=== PATIENT | male | born 1975 | race Caucasian/White ===

== ENCOUNTER 2017-04-14 13:14 | Inpatient (IN) | payer MEDICAID ==
[2017-04-14] MEDS ORDERED: ONDANSETRON HCL INJ/PF 4 MG/2 ML SDV IV ONE (14:52)
[2017-04-14] MEDS ORDERED: NORMAL SALINE 1000 ML 1,000 ML IV PRN (14:52)
--- NOTE | 2017-04-14 15:25 | RADIOLOGY REPORT (SQ) ---
EXAM DESCRIPTION: CHEST SINGLE VIEW COMPLETED DATE/TIME: 04/14/2017 3:15 pm REASON FOR STUDY: pain sp fall COMPARISON: 07/17/2016 EXAM PARAMETERS: NUMBER OF VIEWS: One view. TECHNIQUE: Single frontal radiographic view of the chest acquired. RADIATION DOSE: NA LIMITATIONS: None. FINDINGS: LUNGS AND PLEURA: No opacities, masses or pneumothorax. No pleural effusion. MEDIASTINUM AND HILAR STRUCTURES: No masses. Contour normal. HEART AND VASCULAR STRUCTURES: Heart stable in size. Normal vasculature. BONES: No acute findings. HARDWARE: None in the chest. OTHER: No other significant finding. IMPRESSION: NO ACUTE RADIOGRAPHIC FINDING IN THE CHEST. TECHNICAL DOCUMENTATION: JOB ID: [id number]
[2017-04-14 16:20] LABS: HEMATOCRIT 31.1 % (37.9-51.0); HEMOGLOBIN 10.8 g/dL (13.5-17.0); HGB HCT DIFFERENCE 1.3; MEAN CORPUSCULAR HEMOGLOBIN 31.8 pg (27.0-33.4); MEAN CORPUSCULAR HGB CONC 34.6 g/dL (32.0-36.0); MEAN CORPUSCULAR VOLUME 92 fl (80-97); RED BLOOD COUNT 3.38 10^6/uL (4.35-5.55); WHITE BLOOD COUNT 10.5 10^3/uL (4.0-10.5)
[2017-04-14 16:28] LABS: ALANINE AMINOTRANSFERASE 39 U/L (21-72); ALBUMIN 3.9 g/dL (3.5-5.0); ALKALINE PHOSPHATASE 64 U/L (38-126); ANION GAP 16 (5-19); ASPARTATE AMINO TRANSFERASE 21 U/L (17-59); BILIRUBIN,DIRECT 0.4 mg/dL (0.0-0.4); BILIRUBIN,TOTAL 0.5 mg/dL (0.2-1.3); BLOOD UREA NITROGEN 92 mg/dL (7-20); CARBON DIOXIDE 26 mmol/L (22-30); CHLORIDE 96 mmol/L (98-107); CREATININE RESULT 7.04 mg/dL (0.52-1.25); GLUCOSE 297 mg/dL (75-110); POTASSIUM 3.1 mmol/L (3.6-5.0); SODIUM 137.9 mmol/L (137-145); TOTAL PROTEIN 6.8 g/dL (6.3-8.2)
[2017-04-14 16:36] LABS: BASOPHILS % (MANUAL) 1 % (0-2); EOSINOPHILS % (MANUAL) 3 % (0-6); LYMPHOCYTES % (MANUAL) 21 % (13-45); TOTAL CELLS COUNTED 100
[2017-04-14 16:38] LABS: POLYCHROMASIA SLIGHT
[2017-04-14 16:44] LABS: CALCIUM 12.9 mg/dL (8.4-10.2)
--- NOTE | 2017-04-14 17:07 | ER Document Report ---
ED General - General Chief Complaint: Leg Pain Stated Complaint: LEG PAIN AND NAUSEA Time Seen by Provider: 04/14/17 14:44 Mode of Arrival: Ambulatory Information source: Patient TRAVEL OUTSIDE OF THE [place] IN LAST 30 DAYS: No - HPI Patient complains to provider of: Left hip pain vomiting for 3 weeks Onset: Just prior to arrival Onset/Duration: Gradual Quality of pain: Achy, Dull - Related Data Allergies/Adverse Reactions: No Known Allergies Allergy (Verified 12/27/15 16:34) Past Medical History - General Information source: Patient - Social History Smoking Status: Never Smoker Family History: Reviewed & Not Pertinent - Past Medical History Cardiac Medical History: Reports: Hx Congestive Heart Failure, Hx Hypercholesterolemia, Hx Hypertension Pulmonary Medical History: Neurological Medical History: Endocrine Medical History: Reports: Hx Diabetes Mellitus Type 1, Hx Diabetes Mellitus Type 2 Renal/ Medical History: Denies: Hx Peritoneal Dialysis Malignancy Medical History: GI Medical History: Reports: Hx Gastroesophageal Reflux Disease Musculoskeltal Medical History: Reports Hx Arthritis Psychiatric Medical History: Reports: Hx Depression Traumatic Medical History: Infectious Medical History: Past Surgical History: Reports: Hx Orthopedic Surgery - left foot - Immunizations Hx Diphtheria, Pertussis, Tetanus Vaccination: No Review of Systems - Review of Systems Gastrointestinal: Nausea, Vomiting, Poor fluid intake Physical Exam - Vital signs Vitals: Temp Pulse Resp BP Pulse Ox 98.2 F 78 20 151/78 H 100 04/14/17 13:25 04/14/17 13:25 04/14/17 13:25 04/14/17 13:25 04/14/17 13:25 Interpretation: Normal - General General appearance: Appears well, Alert - HEENT Head: Normocephalic, Atraumatic Eyes: Normal Pupils: PERRL - Respiratory Respiratory status: No respiratory distress Chest status: Nontender Breath sounds: Normal Chest palpation: Normal - Cardiovascular Rhythm: Regular Heart sounds: Normal auscultation Murmur: No - Abdominal Inspection: Normal Distension: No distension Bowel sounds: Normal Tenderness: Nontender Organomegaly: No organomegaly - Back Back: Normal, Nontender - Extremities General upper extremity: Normal inspection, Nontender, Normal color, Normal ROM , Normal temperature General lower extremity: Normal inspection, Nontender, Normal color, Normal ROM , Normal temperature, Normal weight bearing. No: Ruben's sign Ankle: Edema, Other - +2 bilateral - Neurological Neuro grossly intact: Yes Cognition: Normal Orientation: AAOx4 [place] Coma Scale Eye Opening: Spontaneous Derrick Coma Scale Verbal: Oriented Derrick Coma Scale Motor: Obeys Commands Derrick Coma Scale Total: 15 Speech: Normal Motor strength normal: LUE, RUE, LLE, RLE Sensory: Normal - Psychological Associated symptoms: Normal affect, Normal mood - Skin Skin Temperature: Warm Skin Moisture: Dry Skin Color: Normal Course - Vital Signs Vital signs: Temp Pulse Resp BP Pulse Ox 98.2 F 78 20 151/78 H 100 04/14/17 13:25 04/14/17 13:25 04/14/17 13:25 04/14/17 13:25 04/14/17 13:25 - Laboratory Result Diagrams: 04/14/17 15:45 04/14/17 16:00 Laboratory results interpreted by me: 04/14/17 04/14/17 15:45 16:00 RBC 3.38 L Hgb 10.8 L Hct 31.1 L Metamyelocytes % 1 H Potassium 3.1 L Chloride 96 L BUN 92 H Creatinine 7.04 H Est GFR ( Amer) 11 L Est GFR (Non-Af Amer) 9 L Glucose 297 H Calcium 12.9 H* Discharge - Discharge Disposition: ADMITTED INPATIENT Admitting Provider: [facility] Unit Admitted: Medical Floor
[2017-04-14 17:17] LABS: AMORPHOUS SEDIMENT,URINE TRACE /HPF; APPEARANCE,URINE SLIGHTLY-CLOUDY; BILIRUBIN,URINE NEGATIVE (NEGATIVE); GLUCOSE, URINE >=500 mg/dL (NEGATIVE); KETONES,URINE NEGATIVE (NEGATIVE); LEUKOCYTE ESTERASE,URINE NEGATIVE (NEGATIVE); NITRITE,URINE NEGATIVE (NEGATIVE); PROTEIN,URINE >=500 mg/dL (NEGATIVE); URINE SPECIFIC GRAVITY 1.012; UROBILINOGEN,URINE NEGATIVE mg/dL (<2.0)
[2017-04-14] MEDS ORDERED: ONDANSETRON HCL INJ/PF 4 MG/2 ML SDV IV PRN (17:28)
[2017-04-14] MEDS ORDERED: DEXTROSE 50%-WATER 25 GM/50 ML DISP.SYRIN IV PRN ×2 (17:34)
[2017-04-14] MEDS ORDERED: DEXTROSE 40% GEL 15 GM TUBE PO PRN ×2 (17:34)
[2017-04-14] MEDS ORDERED: GLUCAGON,HUMAN RECOMB 1 MG INJ IM PRN (17:34)
--- NOTE | 2017-04-14 17:52 | PDOC H&P ---
History of Present Illness Admission Date/PCP: ELSIE OCONNOR DO Patient complains of: Nausea, vomiting, back pain with left leg pain History of Present Illness: ERLIN DIAMOND is a 42 year old male complicated past medical history including diabetes, chronic renal failure and congestive heart failure who presents with a two-week history of nausea with intermittent vomiting. The patient reports he had difficulty tolerating p.o. for the last several days. He also has had decreased urinary output and was found to have acute on chronic renal failure. The patient also complains of low back pain that radiates in the sciatic nerve distribution on the left. He denies any trauma. He denies any bowel or bladder incontinence. Having fevers or chills. He reports that he has never discussed whether or not he would want dialysis done. He denies any orthopnea or PND. He denies any lower extremity edema. Past Medical History Cardiac Medical History: Reports: Congestive Heart Failure - Diastolic dysfunction, Hyperlipidema, Hypertension, Peripheral Vascular Disease Pulmonary Medical History: Reports: None EENT Medical History: Reports: Eyes - Legally blind Neurological Medical History: Reports: Other - Peripheral neuropathy Endocrine Medical History: Reports: Diabetes Mellitus Type 1 Renal/ Medical History: Reports: Chronic Kidney Disease Malignancy Medical History: Reports: None GI Medical History: Reports: Gastroesophageal Reflux Disease Musculoskeltal Medical History: Reports: Arthritis Psychiatric Medical History: Reports: Depression Hematology: Reports: None Infectious Medical History: Reports: Other - History of osteomyelitis of the right foot requiring below the knee amputation Past Surgical History Past Surgical History: Reports: Orthopedic Surgery - left foot, Other - 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 Social History Information Source: Patient Lives with: Spouse/Significant other Smoking Status: Current Every Day Smoker Frequency of Alcohol Use: Rare Hx Recreational Drug Use: No Drugs: None Hx Prescription Drug Abuse: No - Advance Directive Resuscitation Status: Full Code Family History Family History: Mother is 63 and alive. She has diabetes, coronary artery disease. Father at age 47 from coronary artery disease. Parental Family History Reviewed: Yes Children Family History Reviewed: No Sibling(s) Family History Reviewed.: No Medication/Allergy Home Medications: Insulin Aspart [Novolog Flexpen] 8 unit SUBCUT MEALS 06/17/16 Insulin Glargine,Hum.rec.anlog [Lantus Insulin 100 Unit/mL] 25 unit SUBCUT QHS 08/01/16 Allergies/Adverse Reactions: No Known Allergies Allergy (Verified 12/27/15 16:34) Review of Systems Constitutional: ABSENT: chills, fever(s), headache(s) Eyes: PRESENT: other - Patient is legally blind Ears: ABSENT: hearing changes Cardiovascular: ABSENT: chest pain, dyspnea on exertion, edema, orthropnea, palpitations Respiratory: ABSENT: cough, hemoptysis Gastrointestinal: PRESENT: as per HPI Genitourinary: ABSENT: dysuria, hematuria Musculoskeletal: PRESENT: as per HPI, back pain Integumentary: ABSENT: rash, wounds Neurological: PRESENT: paresthesias Psychiatric: ABSENT: anxiety, depression Endocrine: ABSENT: cold intolerance, heat intolerance, polydipsia, polyuria Hematologic/Lymphatic: ABSENT: easy bleeding, easy bruising Physical Exam Vital Signs: Temp Pulse Resp BP Pulse Ox 98.2 F 92 20 160/79 H 96 04/14/17 17:12 04/14/17 17:12 04/14/17 17:12 04/14/17 17:12 04/14/17 17:12 Intake & Output 04/13/17 04/14/17 04/15/17 06:59 06:59 06:59 Weight 181 kg General appearance: PRESENT: no acute distress, morbidly obese Head exam: PRESENT: atraumatic, normocephalic Eye exam: PRESENT: conjunctiva pink, EOMI, PERRLA, other - Right cornea is cloudy. ABSENT: scleral icterus Ear exam: PRESENT: normal external ear exam Mouth exam: PRESENT: moist, tongue midline Neck exam: ABSENT: carotid bruit, JVD, lymphadenopathy, thyromegaly Respiratory exam: PRESENT: clear to auscultation eusebia. ABSENT: rales, rhonchi, wheezes Cardiovascular exam: PRESENT: RRR. ABSENT: diastolic murmur, rubs, systolic murmur GI/Abdominal exam: PRESENT: normal bowel sounds, soft. ABSENT: distended, guarding, mass, organolmegaly, rebound, tenderness Rectal exam: PRESENT: deferred Extremities exam: PRESENT: other - Right below the knee amputation. ABSENT: calf tenderness, clubbing, pedal edema Neurological exam: PRESENT: alert, awake, oriented to person, oriented to place , oriented to time, oriented to situation, CN II-XII grossly intact. ABSENT: motor sensory deficit Psychiatric exam: PRESENT: flat affect Skin exam: PRESENT: dry, intact, warm. ABSENT: cyanosis, rash Results Laboratory Results: 04/14/17 15:45 04/14/17 16:00 04/14/17 04/14/17 04/14/17 15:45 16:00 17:00 WBC 10.5 RBC 3.38 L Hgb 10.8 L Hct 31.1 L MCV 92 MCH 31.8 MCHC 34.6 RDW 13.0 Plt Count 215 Seg Neutrophils % Not Reportable Lymphocytes % Not Reportable Monocytes % Not Reportable Eosinophils % Not Reportable Basophils % Not Reportable Absolute Neutrophils Not Reportable Absolute Lymphocytes Not Reportable Absolute Monocytes Not Reportable Absolute Eosinophils Not Reportable Absolute Basophils Not Reportable Sodium 137.9 Potassium 3.1 L Chloride 96 L Carbon Dioxide 26 Anion Gap 16 BUN 92 H Creatinine 7.04 H Est GFR ( Amer) 11 L Est GFR (Non-Af Amer) 9 L Glucose 297 H Calcium 12.9 H* Total Bilirubin 0.5 AST 21 ALT 39 Alkaline Phosphatase 64 Total Protein 6.8 Albumin 3.9 Urine Color YELLOW Urine Appearance SLIGHTLY-CLOUDY Urine pH 5.0 Ur Specific Dix 1.012 Urine Protein >=500 H Urine Glucose (UA) >=500 H Urine Ketones NEGATIVE Urine Blood SMALL H Urine Nitrite NEGATIVE Ur Leukocyte Esterase NEGATIVE Urine WBC (Auto) 3 Urine RBC (Auto) 1 Impressions: Chest X-Ray 04/14/17 14:52 IMPRESSION: NO ACUTE RADIOGRAPHIC FINDING IN THE CHEST. Assessment & Plan - Diagnosis (1) CKD (chronic kidney disease) Qualifiers: Chronic kidney disease stage: stage 3 (moderate) Qualified Code(s): N18.3 - Chronic kidney disease, stage 3 (moderate) Is this a current diagnosis for this admission?: YesPlan: Patient has acute on chronic renal failure. His baseline creatinine is around 3. He has had nausea and vomiting and dehydration as the cause. We will give IV fluids overnight and ask nephrology to evaluate in the morning. He most likely will need dialysis in the near future. I discussed that with the patient and he is uncertain as to whether he would want to do dialysis. We will need to give fluids cautiously given the fact that he does have a history of congestive heart failure. (2) Sciatica Is this a current diagnosis for this admission?: YesPlan: Given Solu-Medrol and Valium for his sciatica. Patient cannot take nonsteroidals secondary to his acute on chronic renal failure. (3) Peripheral vascular disease Is this a current diagnosis for this admission?: YesPlan: Patient has had a previous below the knee amputation on the right. (4) Obesity Is this a current diagnosis for this admission?: Yes (5) Blindness Is this a current diagnosis for this admission?: Yes (6) CHF (congestive heart failure) Qualifiers: Congestive heart failure type: unspecified congestive heart failure type Congestive heart failure chronicity: acute on chronic Qualified Code(s): I50.9 - Heart failure, unspecified Is this a current diagnosis for this admission?: YesPlan: Has a history of chronic diastolic congestive heart failure. He is volume depleted currently. We will give IV fluids and watch closely given his history of congestive heart failure (7) HTN (hypertension) Qualifiers: Hypertension type: essential hypertension Qualified Code(s): I10 - Essential (primary) hypertension Is this a current diagnosis for this admission?: Yes (8) Neuropathy Is this a current diagnosis for this admission?: Yes - Time Time Spent: 50 to 70 Minutes - Inpatient Certification Medical Necessity: Need Close Monitoring Due to Risk of Patient Decompensation, Need For IV Fluids - Plan Summary Plan Summary: Admit as inpatient as I anticipate he will require greater than a 2 midnight hospital stay
[2017-04-14] MEDS ORDERED: METHYLPREDNISOLONE INJ 40 MG/1 ML SDV IV ONE (18:45)
[2017-04-14] MEDS: ACETAMINOPHEN 325 MG TABLET PO PRN (19:29)
[2017-04-14] MEDS: NORMAL SALINE 1000 ML 1,000 ML IV PRN (19:30)
[2017-04-14] MEDS: ONDANSETRON 4 MG TAB.RAPDIS PO PRN (21:43)
[2017-04-14] MEDS: DIAZEPAM 5 MG TABLET PO PRN (21:43)
[2017-04-14] MEDS: HEPARIN SOD (PORCINE) 5,000 UNIT/ML 1 ML SYRINGE SUBCUT SCH (21:43)
[2017-04-14] MEDS: INSULIN LISPRO 100 UNIT/ML 3 ML VIAL SUBCUT PRN (21:43)
[2017-04-14] MEDS ORDERED: FAMOTIDINE 20 MG TABLET PO ONE (22:00)
[2017-04-14] MEDS ORDERED: FAMOTIDINE 20 MG TABLET PO SCH (22:00)
[2017-04-14] MEDS ORDERED: INSULIN GLARGINE,HUM.REC.ANLOG 1,000 UNIT/10 ML UNIT SUBCUT ONE (22:28)
[2017-04-14] MEDS: INSULIN GLARGINE,HUM.REC.ANLOG 300 UNIT/3 ML INSULN.PEN SUBCUT SCH (22:31)
[2017-04-15] MEDS: ACETAMINOPHEN 325 MG TABLET PO PRN (05:16)
[2017-04-15] MEDS: HEPARIN SOD (PORCINE) 5,000 UNIT/ML 1 ML SYRINGE SUBCUT SCH ×3 (05:16→23:00)
[2017-04-15] MEDS: DIAZEPAM 5 MG TABLET PO PRN (05:16)
[2017-04-15] MEDS ORDERED: INSULIN REG, HUMAN 100 UNIT/ML 3 ML VIAL (PYX) ONE (05:50)
[2017-04-15] MEDS: INSULIN LISPRO 100 UNIT/ML 3 ML VIAL SUBCUT PRN ×4 (05:54→23:00)
[2017-04-15 05:55] LABS: HEMATOCRIT 27.4 % (37.9-51.0); HEMOGLOBIN 9.9 g/dL (13.5-17.0); HGB HCT DIFFERENCE 2.3; MEAN CORPUSCULAR HEMOGLOBIN 33.2 pg (27.0-33.4); MEAN CORPUSCULAR HGB CONC 36.3 g/dL (32.0-36.0); MEAN CORPUSCULAR VOLUME 92 fl (80-97); RED BLOOD COUNT 2.99 10^6/uL (4.35-5.55); RED CELL DISTRIBUTION WIDTH 12.9 % (11.5-14.0); WHITE BLOOD COUNT 9.8 10^3/uL (4.0-10.5)
[2017-04-15] MEDS ORDERED: METHYLPREDNISOLONE INJ 40 MG/1 ML SDV IV SCH (06:00)
[2017-04-15 06:09] LABS: ALBUMIN 3.7 g/dL (3.5-5.0); ANION GAP 16 (5-19); BLOOD UREA NITROGEN 91 mg/dL (7-20); CARBON DIOXIDE 23 mmol/L (22-30); CHLORIDE 98 mmol/L (98-107); CREATININE RESULT 6.43 mg/dL (0.52-1.25); POTASSIUM 3.6 mmol/L (3.6-5.0); SODIUM 136.9 mmol/L (137-145); TOTAL PROTEIN 6.4 g/dL (6.3-8.2)
[2017-04-15 06:11] LABS: ALANINE AMINOTRANSFERASE 48 U/L (21-72); ALKALINE PHOSPHATASE 63 U/L (38-126); ASPARTATE AMINO TRANSFERASE 21 U/L (17-59); BILIRUBIN,DIRECT 0.4 mg/dL (0.0-0.4); BILIRUBIN,TOTAL 0.5 mg/dL (0.2-1.3)
[2017-04-15 06:19] LABS: CALCIUM 12.3 mg/dL (8.4-10.2); GLUCOSE 414 mg/dL (75-110)
[2017-04-15] MEDS ORDERED: INSULIN REG, HUMAN 100 UNIT/ML 3 ML VIAL SUBCUT ONE (06:30)
[2017-04-15] MEDS: OXYCODONE-ACETAMINOPHEN 5-325 MG TABLET PO PRN ×2 (11:09→23:00)
[2017-04-15] MEDS: NORMAL SALINE 1000 ML 1,000 ML IV PRN (11:11)
[2017-04-15] MEDS: FAMOTIDINE 20 MG TABLET PO SCH ×2 (11:12→23:01)
--- NOTE | 2017-04-15 15:48 | PDOC PROGRESS REPORT ---
Subjective Progress Note for:: 04/15/17 Subjective:: Patient is feeling better but still having diarrhea. Denies chills or fever, nausea nor vomiting. Tolerating oral intake. No shortness of breath PND orthopnea reported. There is no chest pain as well. Denies any dizziness or syncopal episode. Physical Exam Vital Signs: Temp Pulse Resp BP Pulse Ox 97.8 F 92 16 176/78 H 93 04/15/17 07:34 04/15/17 07:34 04/15/17 07:34 04/15/17 07:34 04/15/17 07:34 Intake & Output 04/14/17 04/15/17 04/16/17 06:59 06:59 06:59 Intake Total 1000 Output Total 1100 Balance -100 General appearance: PRESENT: no acute distress, cooperative, morbidly obese Head exam: PRESENT: normocephalic Eye exam: PRESENT: conjunctiva pale Mouth exam: PRESENT: moist, neck supple Neck exam: ABSENT: JVD Respiratory exam: PRESENT: clear to auscultation eusebia. ABSENT: rhonchi, wheezes Cardiovascular exam: PRESENT: RRR. ABSENT: gallop Pulses: PRESENT: normal dorsalis pedis pul GI/Abdominal exam: PRESENT: hyperactive bowel sounds, soft, tenderness - Minimal diffusely. ABSENT: distended - Obese Extremities exam: PRESENT: other - trace edema on the left, below knee amputation on the right Neurological exam: PRESENT: alert, awake, oriented to situation Skin exam: PRESENT: dry, warm. ABSENT: cyanosis Results Laboratory Results: 04/15/17 05:44 04/15/17 05:44 04/15/17 04/15/17 05:44 05:44 WBC 9.8 RBC 2.99 L Hgb 9.9 L Hct 27.4 L MCV 92 MCH 33.2 MCHC 36.3 H RDW 12.9 Plt Count 189 Sodium 136.9 L Potassium 3.6 Chloride 98 Carbon Dioxide 23 Anion Gap 16 BUN 91 H Creatinine 6.43 H Est GFR ( Amer) 12 L Est GFR (Non-Af Amer) 10 L Glucose 414 H* Calcium 12.3 H* Total Bilirubin 0.5 AST 21 ALT 48 Alkaline Phosphatase 63 Total Protein 6.4 Albumin 3.7 Impressions: Chest X-Ray 04/14/17 14:52 IMPRESSION: NO ACUTE RADIOGRAPHIC FINDING IN THE CHEST. Assessment & Plan - Diagnosis (1) DEREK (acute kidney injury) Is this a current diagnosis for this admission?: Yes (2) Diarrhea Qualifiers: Diarrhea type: unspecified type Qualified Code(s): R19.7 - Diarrhea , unspecified Is this a current diagnosis for this admission?: Yes (3) Sciatica Qualifiers: Laterality: unspecified laterality Qualified Code(s): M54.30 - Sciatica, unspecified side Is this a current diagnosis for this admission?: Yes (4) HTN (hypertension) Qualifiers: Hypertension type: essential hypertension Qualified Code(s): I10 - Essential (primary) hypertension Is this a current diagnosis for this admission?: Yes (5) Anemia Qualifiers: Anemia type: unspecified type Qualified Code(s): D64.9 - Anemia, unspecified Is this a current diagnosis for this admission?: Yes (6) Obesity Qualifiers: Obesity type: unspecified obesity type Obesity severity: morbid Qualified Code(s): E66.01 - Morbid (severe) obesity due to excess calories Is this a current diagnosis for this admission?: Yes (7) Peripheral vascular disease Is this a current diagnosis for this admission?: Yes (8) CHF (congestive heart failure) Qualifiers: Congestive heart failure type: unspecified congestive heart failure type Congestive heart failure chronicity: acute on chronic Qualified Code(s): I50.9 - Heart failure, unspecified Is this a current diagnosis for this admission?: Yes (9) Neuropathy Is this a current diagnosis for this admission?: Yes (10) Diabetes mellitus type 1 with hyperosmolarity Qualifiers: Diabetes mellitus complication detail: without coma Qualified Code(s ): E10.69 - Type 1 diabetes mellitus with other specified complication (11) Hyperlipidemia Qualifiers: Hyperlipidemia type: unspecified Qualified Code(s): E78.5 - Hyperlipidemia, unspecified Is this a current diagnosis for this admission?: Yes (12) 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 Recheck creatinine in the morning. We are going to discontinue the steroid as it is causing elevated blood sugar. Continue current insulin regimen and sliding scale. We will resume Coreg for blood pressure control. Check Clostridium difficile toxin . We will continue to monitor.
--- NOTE | 2017-04-15 16:07 | PDOC CONSULTATION ---
Consultation Consult Date: 04/15/17 Consult reason:: AK I on CKD stage IV History of Present Illness Admission Date/PCP: 04/14/17 17:28 ELSIE OCONNOR DO History of Present Illness: ERLIN DIAMOND is a 42 year old male complicated past medical history including Complicated diabetes , chronic renal failure -4 and congestive heart failure who presents with a two-week history of nausea with intermittent vomiting. The patient reports he had difficulty tolerating p.o. for the last several days. He also has had decreased urinary output and was found to have acute on chronic renal failure. The patient also complains of low back pain that radiates in the sciatic nerve distribution on the left. He denies any trauma. He denies any bowel or bladder incontinence. No fevers or chills. Patient is got very difficult psychosocial situation. 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 Since she has left he has not been able to read or used a glucometer and therefore he has not been using an insulin scale that he might take too much. He has had been unable to get out of his house as well. He was completely dependent on her for his transportation needs. He has therefore been unable to come to my office for the last 6 months or more. Besides the fact that he is visually blind he is also status post right BKA and unable to move around.He has no income of of any sort. At one time he has applied for social disability.He mentions that there was some errors on it and because he was blind he was unable to correct it. Therefore it could not move forward. Presently the patient is feeling better. Since he has been here his dehydration and his hyperglycemia has been addressed accordingly with IV fluids and insulin respectively.For the first time in a long time, he says he has been able to eat something today. Past Medical History Cardiac Medical History: Reports: Hyperlipidemia, Hypertension-primary, Peripheral Vascular Disease Pulmonary Medical History: Reports: None EENT Medical History: Reports: Eyes - Legally blind Neurological Medical History: Reports: Other - Peripheral neuropathy Endocrine Medical History: Reports: Diabetes Mellitus Type 1, Diabetes Mellitus Type 2, Obesity - He used to weigh 400+ pounds. Complications of Diabetes: Reports: Other - History of osteomyelitis of the right foot requiring below the knee amputation Renal/ Medical History: Reports: Chronic Kidney Disease Stage IV Malignancy Medical History: Reports: None GI Medical History: Reports: Gastroesophageal Reflux Disease Musculoskeltal Medical History: Reports: Arthritis Denies: Rheumatoid Arthritis, Systemic Lupus Erythematosus Psychiatric Medical History: Reports: Depression Infectious Medical History: Reports: Other - History of osteomyelitis of the right foot requiring below the knee amputation Past Surgical History Past Surgical History: Reports: Orthopedic Surgery - left foot, Other - 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 Social History Lives with: Spouse/Significant other Smoking Status: Former Smoker Cigarettes Packs Per Day: 1 Last Time Smoked: 1 week ago Frequency of Alcohol Use: None Hx Recreational Drug Use: No Drugs: None Hx Prescription Drug Abuse: No - Advance Directive Resuscitation Status: Full Code Family History Parental Family History Reviewed: Yes - Negative for ESRD Children Family History Reviewed: No Sibling(s) Family History Reviewed.: No Medication/Allergy Home Medications: Calcium Acetate [Phoslo 667 mg Capsule] 2,668 mg PO MEALS 04/15/17 Carvedilol [Coreg 25 mg Tablet] 25 mg PO BID 04/15/17 Furosemide [Lasix 80 mg Tablet] 160 mg PO BID 04/15/17 Gabapentin [Neurontin 300 mg Capsule] 600 mg PO DAILY 04/15/17 Hydralazine HCl [Apresoline 50 mg Tablet] 50 mg PO Q12 04/15/17 Hydrocodone/Acetaminophen [Stringer 10-325 Tablet] 1 tab PO Q6HP PRN 04/15/17 Insulin Aspart [Novolog Flexpen] 0 units SQ .PERSLIDINGSCALE 04/15/17 Insulin Glargine,Hum.rec.anlog [Lantus Solostar] 25 units SQ DAILY 04/15/17 Metolazone [Zaroxolyn 2.5 mg Tablet] 2.5 mg PO BID 04/15/17 Omeprazole 40 mg PO DAILY 04/15/17 Pravastatin Sodium [Pravachol] 40 mg PO QHS 04/15/17 Promethazine HCl [Phenergan 25 mg Tablet] 25 mg PO Q6HP PRN 04/15/17 Tramadol HCl [Ultram 50 mg Tablet] 50 mg PO Q6HP PRN 04/15/17 Allergies/Adverse Reactions: No Known Allergies Allergy (Verified 12/27/15 16:34) Review of Systems Constitutional: PRESENT: anorexia, fatigue, weakness, weight loss. ABSENT: chills, fever(s), headache(s), night sweats Eyes: PRESENT: visual disturbances Ears: ABSENT: hearing changes Nose, Mouth, and Throat: ABSENT: mouth pain, sore throat, vertigo Cardiovascular: ABSENT: chest pain, dyspnea on exertion, edema, orthropnea, palpitations Respiratory: ABSENT: dyspnea, hemoptysis Gastrointestinal: PRESENT: nausea, vomiting. ABSENT: abdominal pain, bloating, diarrhea, dysphagia, heartburn, hematemesis Genitourinary: ABSENT: difficulty urinating, dysuria, hematuria Integumentary: ABSENT: lesions, pruritus Neurological: ABSENT: abnormal movements, abnormal speech, confusion, focal weakness, memory loss Psychiatric: PRESENT: depression Endocrine: PRESENT: polydipsia. ABSENT: heat intolerance Physical Exam Vital Signs: Temp Pulse Resp BP Pulse Ox 97.8 F 92 16 176/78 H 93 04/15/17 07:34 04/15/17 07:34 04/15/17 07:34 04/15/17 07:34 04/15/17 07:34 Intake & Output 04/14/17 04/15/17 04/16/17 06:59 06:59 06:59 Intake Total 1000 Output Total 1100 Balance -100 General appearance: PRESENT: no acute distress Eye exam: PRESENT: conjunctival injection, conjunctiva pink, EOMI, PERRLA. ABSENT: nystagmus, periorbital swelling Ear exam: PRESENT: normal external ear exam Mouth exam: PRESENT: moist, neck supple Neck exam: ABSENT: lymphadenopathy, meningismus, tenderness, thyromegaly, tracheal deviation Respiratory exam: PRESENT: clear to auscultation eusebia. ABSENT: crackles, rhonchi Cardiovascular exam: PRESENT: +S1, +S2, systolic murmur GI/Abdominal exam: PRESENT: normal bowel sounds, soft. ABSENT: diminished bowel sounds, distended, guarding, organomegaly, tenderness Extremities exam: ABSENT: pedal edema Neurological exam: PRESENT: alert, awake, oriented to person, oriented to place , oriented to time Psychiatric exam: PRESENT: appropriate affect. ABSENT: anxious, depressed, homicidal ideation, suicidal ideation Skin exam: PRESENT: dry. ABSENT: cyanosis, erythema, mottled, rash Results Laboratory Results: 04/15/17 05:44 04/15/17 05:44 04/15/17 04/15/17 05:44 05:44 WBC 9.8 RBC 2.99 L Hgb 9.9 L Hct 27.4 L MCV 92 MCH 33.2 MCHC 36.3 H RDW 12.9 Plt Count 189 Sodium 136.9 L Potassium 3.6 Chloride 98 Carbon Dioxide 23 Anion Gap 16 BUN 91 H Creatinine 6.43 H Est GFR ( Amer) 12 L Est GFR (Non-Af Amer) 10 L Glucose 414 H* Calcium 12.3 H* Total Bilirubin 0.5 AST 21 ALT 48 Alkaline Phosphatase 63 Total Protein 6.4 Albumin 3.7 Impressions: Chest X-Ray 04/14/17 14:52 IMPRESSION: NO ACUTE RADIOGRAPHIC FINDING IN THE CHEST. Assessment & Plan - Diagnosis (1) DEREK (acute kidney injury) Plan: Secondary to severe dehydration and severe hyperglycemia. Since initiation of fluid resuscitation and insulin patient's is feeling clinically better and his labs also improving. Continue to monitor on current treatment regimen. No acute indications for renal replacements even though overall that is not too far in the near future.I did discuss that and is willing to proceed on those treatment modalities if the need arose. Meanwhile he has got a very difficult psychosocial situation and appreciate the involvement of the psychologist social here in hospital.One has to consider placing him in an assisted living or in the [facility] facility given his present predicament. He also needs to get social disability. (2) Blindness Is this a current diagnosis for this admission?: YesPlan: This is going to place a major role in his future care and treatment and staying out of hospital. (3) Obesity Is this a current diagnosis for this admission?: YesPlan: Morbid and needs to lose weight for obvious reasons. (4) Peripheral vascular disease Is this a current diagnosis for this admission?: YesPlan: Status post right BKA and stable. (5) Sciatica Is this a current diagnosis for this admission?: Yes (6) HTN (hypertension) Qualifiers: Hypertension type: essential hypertension Qualified Code(s): I10 - Essential (primary) hypertension Is this a current diagnosis for this admission?: YesPlan: Presently uncontrolled and this could be because of introduction of Solu- Medrol.Start him on amlodipine and later prior to discharge consider starting ROB inhibitor (7) Chronic kidney disease, stage IV (severe) Plan: Patient has not kept any appointments with me for the last 6 months to a year for obvious reasons. Now that we know his severe psychosocial situations I hope to the social workers can address that prior to his discharge so that he can keep close follow-up of his severe diabetes and other comorbidities with his physicians. (8) Anemia Plan: Initiate workup and see the need for erythropoietin (9) Proteinuria due to type 2 diabetes mellitus Plan: Likely nephrotic. Quantify. Later consider use of ROB inhibitors.
--- NOTE | 2017-04-15 18:52 | RADIOLOGY REPORT (SQ) ---
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 Additional selected color Doppler and spectral images recorded. LIMITATIONS: Study is limited somewhat due to the patient's body habitus. FINDINGS: RIGHT KIDNEY: 13.1 cm in length. Normal echogenicity. No solid or suspicious masses. No hydronephrosis. No calcifications. LEFT KIDNEY: 13.5 cm in length. Normal echogenicity. No solid or suspicious masses. No hydrone phrosis. No calcifications. BLADDER: No masses. OTHER FINDINGS: No other significant finding. IMPRESSION: NORMAL RENAL AND BLADDER ULTRASOUND. TECHNICAL DOCUMENTATION: JOB ID: [id number] [employer]- All Rights Reserved
[2017-04-15] MEDS: INSULIN GLARGINE,HUM.REC.ANLOG 300 UNIT/3 ML INSULN.PEN SUBCUT SCH (23:00)
[2017-04-15] MEDS: ONDANSETRON 4 MG TAB.RAPDIS PO PRN (23:00)
[2017-04-15] MEDS: CARVEDILOL 12.5 MG TABLET PO SCH (23:02)
[2017-04-16] MEDS: HEPARIN SOD (PORCINE) 5,000 UNIT/ML 1 ML SYRINGE SUBCUT SCH ×3 (05:39→22:44)
[2017-04-16 06:11] LABS: HEMATOCRIT 28.7 % (37.9-51.0); HEMOGLOBIN 9.6 g/dL (13.5-17.0); HGB HCT DIFFERENCE 0.1; MEAN CORPUSCULAR HEMOGLOBIN 31.3 pg (27.0-33.4); MEAN CORPUSCULAR HGB CONC 33.6 g/dL (32.0-36.0); MEAN CORPUSCULAR VOLUME 93 fl (80-97); RED BLOOD COUNT 3.08 10^6/uL (4.35-5.55); RED CELL DISTRIBUTION WIDTH 13.1 % (11.5-14.0); WHITE BLOOD COUNT 12.8 10^3/uL (4.0-10.5)
[2017-04-16 06:15] LABS: ANION GAP 13 (5-19); BLOOD UREA NITROGEN 89 mg/dL (7-20); CARBON DIOXIDE 27 mmol/L (22-30); CHLORIDE 101 mmol/L (98-107); CREATININE RESULT 6.25 mg/dL (0.52-1.25); GLUCOSE 317 mg/dL (75-110); PHOSPHORUS 5.3 mg/dL (2.5-4.5); POTASSIUM 3.6 mmol/L (3.6-5.0); SODIUM 141.3 mmol/L (137-145)
[2017-04-16 06:58] LABS: CALCIUM 12.1 mg/dL (8.4-10.2)
[2017-04-16 07:23] LABS: FOLATE 7.36 ng/mL (>2.76)
[2017-04-16] MEDS ORDERED: TRAMADOL HCL 50 MG TABLET PO PRN (08:44)
--- NOTE | 2017-04-16 08:52 | PDOC PROGRESS REPORT ---
Subjective Progress Note for:: 04/16/17 Subjective:: Patient states he is feeling better. Denies any diarrhea. No nausea or vomiting, tolerating oral intake. Patient reports good urine output. Patient started to develop body aches and pain was on hydrocodone at home as well as Neurontin, also having coughing. Physical Exam Vital Signs: Temp Pulse Resp BP Pulse Ox 97.2 F 74 16 154/69 H 98 04/16/17 03:45 04/16/17 03:45 04/16/17 03:45 04/16/17 03:45 04/16/17 03:45 Intake & Output 04/15/17 04/16/17 04/17/17 06:59 06:59 06:59 Intake Total 1000 1155 Output Total 1100 1800 Balance -100 -645 Weight 107 kg General appearance: PRESENT: no acute distress, morbidly obese Head exam: PRESENT: normocephalic Eye exam: PRESENT: conjunctiva pale Mouth exam: PRESENT: moist, neck supple Neck exam: ABSENT: JVD Respiratory exam: PRESENT: decreased breath sounds. ABSENT: rhonchi, wheezes Cardiovascular exam: PRESENT: RRR. ABSENT: gallop GI/Abdominal exam: PRESENT: soft. ABSENT: distended - Obese, tenderness Extremities exam: PRESENT: other - Right below-knee amputation,trace edema on the left Neurological exam: PRESENT: alert, awake, oriented to situation Skin exam: PRESENT: dry, warm. ABSENT: cyanosis Results Laboratory Results: 04/16/17 05:35 04/16/17 05:35 04/16/17 04/16/17 05:35 05:35 WBC 12.8 H RBC 3.08 L Hgb 9.6 L Hct 28.7 L MCV 93 MCH 31.3 MCHC 33.6 RDW 13.1 Plt Count 211 Retic Count (auto) 2.17 Absolute Retic 0.067 Sodium 141.3 Potassium 3.6 Chloride 101 Carbon Dioxide 27 Anion Gap 13 BUN 89 H Creatinine 6.25 H Est GFR ( Amer) 12 L Est GFR (Non-Af Amer) 10 L Glucose 317 H Calcium 12.1 H* Phosphorus 5.3 H Iron 176.6 TIBC 219 L % Saturation 81 Ferritin 548.00 H Vitamin B12 827.0 Folate 7.36 Impressions: Chest X-Ray 04/14/17 14:52 IMPRESSION: NO ACUTE RADIOGRAPHIC FINDING IN THE CHEST. Renal Ultrasound 04/15/17 00:00 IMPRESSION: NORMAL RENAL AND BLADDER ULTRASOUND. Assessment & Plan - Diagnosis (1) DEREK (acute kidney injury) Is this a current diagnosis for this admission?: Yes (2) Diarrhea Qualifiers: Diarrhea type: unspecified type Qualified Code(s): R19.7 - Diarrhea , unspecified Is this a current diagnosis for this admission?: Yes (3) Sciatica Qualifiers: Laterality: unspecified laterality Qualified Code(s): M54.30 - Sciatica, unspecified side Is this a current diagnosis for this admission?: Yes (4) HTN (hypertension) Qualifiers: Hypertension type: essential hypertension Qualified Code(s): I10 - Essential (primary) hypertension Is this a current diagnosis for this admission?: Yes (5) Anemia Qualifiers: Anemia type: unspecified type Qualified Code(s): D64.9 - Anemia, unspecified Is this a current diagnosis for this admission?: Yes (6) Obesity Qualifiers: Obesity type: unspecified obesity type Obesity severity: morbid Qualified Code(s): E66.01 - Morbid (severe) obesity due to excess calories Is this a current diagnosis for this admission?: Yes (7) Peripheral vascular disease Is this a current diagnosis for this admission?: Yes (8) CHF (congestive heart failure) Qualifiers: Congestive heart failure type: unspecified congestive heart failure type Congestive heart failure chronicity: acute on chronic Qualified Code(s): I50.9 - Heart failure, unspecified Is this a current diagnosis for this admission?: Yes (9) Neuropathy Is this a current diagnosis for this admission?: Yes (10) Diabetes mellitus type 1 with hyperosmolarity Qualifiers: Diabetes mellitus complication detail: without coma Qualified Code(s ): E10.69 - Type 1 diabetes mellitus with other specified complication; E10.65 - Type 1 diabetes mellitus with hyperglycemia (11) Hyperlipidemia Qualifiers: Hyperlipidemia type: unspecified Qualified Code(s): E78.5 - Hyperlipidemia, unspecified Is this a current diagnosis for this admission?: Yes (12) 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 In the meantime I will resume the patient's gabapentin and hydrocodone. We will obtain a chest x- ray to check for any congestion. Consult systems planner for his home situation and consider placement. Continue supportive care.
[2017-04-16] MEDS: CARVEDILOL 12.5 MG TABLET PO SCH ×2 (10:01→22:44)
[2017-04-16] MEDS: GABAPENTIN 300 MG CAPSULE PO SCH (10:01)
[2017-04-16] MEDS: FAMOTIDINE 20 MG TABLET PO SCH ×2 (10:01→22:44)
--- NOTE | 2017-04-16 11:46 | RADIOLOGY REPORT (SQ) ---
EXAM DESCRIPTION: CHEST SINGLE VIEW COMPLETED DATE/TIME: 04/16/2017 11:35 am REASON FOR STUDY: cough COMPARISON: 04/14/2017. EXAM PARAMETERS: NUMBER OF VIEWS: One view. TECHNIQUE: Single frontal radiographic view of the chest acquired. RADIATION DOSE: NA LIMITATIONS: None. FINDINGS: LUNGS AND PLEURA: No opacities, masses or pneumothorax. A few scattered calcified granulo mas. No pleural effusion. MEDIASTINUM AND HILAR STRUCTURES: No masses. Contour normal. HEART AND VASCULAR STRUCTURES: Heart upper limits of normal in size. Normal vasculature. BONES: No acute findings. HARDWARE: None in the chest. OTHER: No other significant finding. IMPRESSION: NO ACUTE RADIOGRAPHIC FINDING IN THE CHEST. TECHNICAL DOCUMENTATION: JOB ID: [id number]
--- NOTE | 2017-04-16 16:30 | PDOC PROGRESS REPORT ---
Subjective Progress Note for:: 04/16/17 Subjective:: Patient is looking and feeling better. He has no more nausea vomiting. His appetite is markedly improved. No history of chest pain shortness of breath. No history of any fever chills.Still has some low back pain issues in spite of the steroids and further medications had to be added on. Physical Exam Vital Signs: Temp Pulse Resp BP Pulse Ox 99.0 F 73 16 108/63 98 04/16/17 08:00 04/16/17 08:00 04/16/17 08:00 04/16/17 08:00 04/16/17 08:00 Intake & Output 04/15/17 04/16/17 04/17/17 06:59 06:59 06:59 Intake Total 1000 1155 Output Total 1100 1800 Balance -100 -645 Weight 107 kg General appearance: PRESENT: no acute distress Respiratory exam: PRESENT: clear to auscultation eusebia. ABSENT: crackles, rhonchi Cardiovascular exam: PRESENT: +S1, +S2, systolic murmur GI/Abdominal exam: PRESENT: normal bowel sounds, soft. ABSENT: diminished bowel sounds, distended, guarding, organomegaly, tenderness Extremities exam: ABSENT: pedal edema Neurological exam: PRESENT: alert, awake, oriented to person, oriented to place , oriented to time Psychiatric exam: PRESENT: flat affect. ABSENT: depressed Skin exam: PRESENT: dry. ABSENT: erythema, mottled, rash Results Laboratory Results: 04/16/17 05:35 04/16/17 05:35 04/16/17 04/16/17 05:35 05:35 WBC 12.8 H RBC 3.08 L Hgb 9.6 L Hct 28.7 L MCV 93 MCH 31.3 MCHC 33.6 RDW 13.1 Plt Count 211 Retic Count (auto) 2.17 Absolute Retic 0.067 Sodium 141.3 Potassium 3.6 Chloride 101 Carbon Dioxide 27 Anion Gap 13 BUN 89 H Creatinine 6.25 H Est GFR ( Amer) 12 L Est GFR (Non-Af Amer) 10 L Glucose 317 H Calcium 12.1 H* Phosphorus 5.3 H Iron 176.6 TIBC 219 L % Saturation 81 Ferritin 548.00 H Vitamin B12 827.0 Folate 7.36 Impressions: Renal Ultrasound 04/15/17 00:00 IMPRESSION: NORMAL RENAL AND BLADDER ULTRASOUND. Chest X-Ray 04/16/17 00:00 IMPRESSION: NO ACUTE RADIOGRAPHIC FINDING IN THE CHEST. Assessment & Plan - Diagnosis (1) DEREK (acute kidney injury) Is this a current diagnosis for this admission?: YesPlan: Improving with hydration. Will continue on like this for the next 24 hours. No obvious indications for renal replacements. Electrolytes are stable. (2) Blindness Is this a current diagnosis for this admission?: Yes (3) Obesity Qualifiers: Obesity type: unspecified obesity type Obesity severity: morbid Qualified Code(s): E66.01 - Morbid (severe) obesity due to excess calories Is this a current diagnosis for this admission?: YesPlan: Morbid and needs to lose weight for obvious reasons. (4) Peripheral vascular disease Is this a current diagnosis for this admission?: Yes (5) Sciatica Qualifiers: Laterality: unspecified laterality Qualified Code(s): M54.30 - Sciatica, unspecified side Is this a current diagnosis for this admission?: YesPlan: As per hospitalist (6) HTN (hypertension) Qualifiers: Hypertension type: essential hypertension Qualified Code(s): I10 - Essential (primary) hypertension Is this a current diagnosis for this admission?: YesPlan: Controlled and stable for now. (7) Chronic kidney disease, stage IV (severe) Plan: Secondary to diabetic nephropathy with acute insult ongoing now. Renal numbers are however improving. Monitor. No acute indications for renal replacements. (8) Anemia Qualifiers: Anemia type: unspecified type Qualified Code(s): D64.9 - Anemia, unspecified Is this a current diagnosis for this admission?: YesPlan: He is to start erythropoietin. (10) Hypercalcemia Plan: PTH pending. Likely from dehydration. Monitor.
[2017-04-16] MEDS: EPOETIN ALFA INJ 20000 UNIT/1 ML VIAL (RENAL) SUBCUT SCH (17:07)
[2017-04-16] MEDS: INSULIN LISPRO 100 UNIT/ML 3 ML VIAL SUBCUT PRN ×2 (17:08→22:44)
[2017-04-16] MEDS: INSULIN GLARGINE,HUM.REC.ANLOG 300 UNIT/3 ML INSULN.PEN SUBCUT SCH (22:44)
[2017-04-16] MEDS: HYDROCODONE/ACETAMINOPHEN 10-325 MG TABLET PO PRN (23:36)
[2017-04-17 05:06] LABS: HEMATOCRIT 26.3 % (37.9-51.0); HGB HCT DIFFERENCE 0.7; MEAN CORPUSCULAR HEMOGLOBIN 32.1 pg (27.0-33.4); MEAN CORPUSCULAR HGB CONC 34.4 g/dL (32.0-36.0); MEAN CORPUSCULAR VOLUME 94 fl (80-97); RED BLOOD COUNT 2.81 10^6/uL (4.35-5.55)
[2017-04-17 05:24] LABS: ANION GAP 11 (5-19); BLOOD UREA NITROGEN 91 mg/dL (7-20); CALCIUM 11.8 mg/dL (8.4-10.2); CARBON DIOXIDE 28 mmol/L (22-30); CHLORIDE 101 mmol/L (98-107); CREATININE RESULT 5.97 mg/dL (0.52-1.25); GLUCOSE 313 mg/dL (75-110); POTASSIUM 3.8 mmol/L (3.6-5.0); SODIUM 139.5 mmol/L (137-145)
[2017-04-17] MEDS: HEPARIN SOD (PORCINE) 5,000 UNIT/ML 1 ML SYRINGE SUBCUT SCH ×3 (06:34→22:29)
[2017-04-17 07:44] LABS: URINE CREATININE 109.3 mg/dL (22-328)
[2017-04-17 07:55] LABS: URINE PROTEIN 382.4 mg/dL (<12)
[2017-04-17 08:08] LABS: PTH INTACT 18 pg/mL (15-65)
[2017-04-17] MEDS: INSULIN LISPRO 100 UNIT/ML 3 ML VIAL SUBCUT PRN ×4 (08:52→22:55)
[2017-04-17 09:24] LABS: TRANSFERRIN 169 mg/dL (200-370)
[2017-04-17] MEDS: HYDROCODONE/ACETAMINOPHEN 10-325 MG TABLET PO PRN ×2 (10:05→22:32)
[2017-04-17] MEDS: FAMOTIDINE 20 MG TABLET PO SCH ×2 (10:06→22:27)
[2017-04-17] MEDS: CARVEDILOL 12.5 MG TABLET PO SCH ×2 (10:06→22:27)
[2017-04-17] MEDS: GABAPENTIN 300 MG CAPSULE PO SCH (10:06)
--- NOTE | 2017-04-17 11:01 | PDOC PROGRESS REPORT ---
Subjective Progress Note for:: 04/17/17 Subjective:: Patient continues to report clinical improvement. Coughing is less. Denies any chills or fever. No PND orthopnea. No shortness of breath. No increasing edema. Patient continues to void freely. Physical Exam Vital Signs: Temp Pulse Resp BP Pulse Ox 98 F 64 17 141/66 H 97 04/17/17 10:34 04/17/17 10:34 04/17/17 10:34 04/17/17 10:34 04/17/17 10:34 Intake & Output 04/16/17 04/17/17 04/18/17 06:59 06:59 06:59 Intake Total 1155 1016 3 Output Total 1800 1150 Balance -645 -134 3 Weight 107 kg General appearance: PRESENT: no acute distress, cooperative, morbidly obese Head exam: PRESENT: normocephalic Eye exam: PRESENT: conjunctiva pale Mouth exam: PRESENT: moist, neck supple Neck exam: ABSENT: JVD Respiratory exam: PRESENT: clear to auscultation eusebia. ABSENT: rhonchi, wheezes Cardiovascular exam: PRESENT: RRR. ABSENT: gallop GI/Abdominal exam: PRESENT: hypoactive bowel sounds, soft. ABSENT: distended - Obese Extremities exam: PRESENT: other - Trace edema on the left, below knee amputation on the right Neurological exam: PRESENT: alert, awake, oriented to situation Skin exam: PRESENT: dry, warm. ABSENT: cyanosis Results Laboratory Results: 04/17/17 04:52 04/17/17 04:52 04/16/17 04/17/17 04/17/17 05:35 04:52 04:52 WBC 10.0 RBC 2.81 L Hgb 9.0 L Hct 26.3 L MCV 94 MCH 32.1 MCHC 34.4 RDW 13.0 Plt Count 184 Sodium 139.5 Potassium 3.8 Chloride 101 Carbon Dioxide 28 Anion Gap 11 BUN 91 H Creatinine 5.97 H Est GFR ( Amer) 13 L Est GFR (Non-Af Amer) 11 L Glucose 313 H Calcium 11.8 H Transferrin 169 L PTH Intact 18 Impressions: Renal Ultrasound 04/15/17 00:00 IMPRESSION: NORMAL RENAL AND BLADDER ULTRASOUND. Chest X-Ray 04/16/17 00:00 IMPRESSION: NO ACUTE RADIOGRAPHIC FINDING IN THE CHEST. Assessment & Plan - Diagnosis (1) DEREK (acute kidney injury) Is this a current diagnosis for this admission?: Yes (2) Diarrhea Qualifiers: Diarrhea type: unspecified type Qualified Code(s): R19.7 - Diarrhea , unspecified Is this a current diagnosis for this admission?: Yes (3) Sciatica Qualifiers: Laterality: unspecified laterality Qualified Code(s): M54.30 - Sciatica, unspecified side Is this a current diagnosis for this admission?: Yes (4) HTN (hypertension) Qualifiers: Hypertension type: essential hypertension Qualified Code(s): I10 - Essential (primary) hypertension Is this a current diagnosis for this admission?: Yes (5) Anemia Qualifiers: Anemia type: unspecified type Qualified Code(s): D64.9 - Anemia, unspecified Is this a current diagnosis for this admission?: Yes (6) Obesity Qualifiers: Obesity type: unspecified obesity type Obesity severity: morbid Qualified Code(s): E66.01 - Morbid (severe) obesity due to excess calories Is this a current diagnosis for this admission?: Yes (7) Peripheral vascular disease Is this a current diagnosis for this admission?: Yes (8) CHF (congestive heart failure) Qualifiers: Congestive heart failure type: unspecified congestive heart failure type Congestive heart failure chronicity: acute on chronic Qualified Code(s): I50.9 - Heart failure, unspecified Is this a current diagnosis for this admission?: Yes (9) Neuropathy Is this a current diagnosis for this admission?: Yes (10) Diabetes mellitus type 1 with hyperosmolarity Qualifiers: Diabetes mellitus complication detail: without coma Qualified Code(s ): E10.69 - Type 1 diabetes mellitus with other specified complication; E10.65 - Type 1 diabetes mellitus with hyperglycemia (11) Hyperlipidemia Qualifiers: Hyperlipidemia type: unspecified Qualified Code(s): E78.5 - Hyperlipidemia, unspecified Is this a current diagnosis for this admission?: Yes (12) 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 Creatinine and calcium continues to trend down. We will continue gentle hydration. In the meantime we will resume the patient' s basal insulin as blood sugar is uncontrolled. I will give Humalog prandial coverage. Continue sliding scale. Awaiting rest home facility bed.
[2017-04-17] MEDS: INSULIN LISPRO 100 UNIT/ML 3 ML VIAL SUBCUT SCH ×2 (11:42→17:29)
[2017-04-17] MEDS: NORMAL SALINE 1000 ML 1,000 ML IV PRN ×2 (11:43→17:29)
[2017-04-17] MEDS: DIAZEPAM 5 MG TABLET PO PRN ×2 (11:49→22:57)
[2017-04-17] MEDS ORDERED: ONDANSETRON HCL INJ/PF 4 MG/2 ML SDV IV PRN (13:14)
[2017-04-17] MEDS: ACETAMINOPHEN 325 MG TABLET PO PRN (15:48)
[2017-04-17] MEDS: INSULIN GLARGINE,HUM.REC.ANLOG 300 UNIT/3 ML INSULN.PEN SUBCUT SCH (22:31)
[2017-04-18] MEDS: NORMAL SALINE 1000 ML 1,000 ML IV PRN ×3 (01:39→20:09)
[2017-04-18] MEDS: HEPARIN SOD (PORCINE) 5,000 UNIT/ML 1 ML SYRINGE SUBCUT SCH ×3 (06:38→22:04)
[2017-04-18] MEDS: HYDROCODONE/ACETAMINOPHEN 10-325 MG TABLET PO PRN ×2 (06:40→22:05)
[2017-04-18 06:53] LABS: ANION GAP 12 (5-19); BLOOD UREA NITROGEN 77 mg/dL (7-20); CALCIUM 10.8 mg/dL (8.4-10.2); CARBON DIOXIDE 25 mmol/L (22-30); CHLORIDE 103 mmol/L (98-107); CREATININE RESULT 4.98 mg/dL (0.52-1.25); GLUCOSE 223 mg/dL (75-110); POTASSIUM 3.7 mmol/L (3.6-5.0); SODIUM 140.2 mmol/L (137-145)
[2017-04-18] MEDS: INSULIN LISPRO 100 UNIT/ML 3 ML VIAL SUBCUT PRN ×4 (09:12→22:04)
[2017-04-18] MEDS: INSULIN LISPRO 100 UNIT/ML 3 ML VIAL SUBCUT SCH ×3 (09:12→16:27)
[2017-04-18] MEDS: CARVEDILOL 12.5 MG TABLET PO SCH ×2 (09:12→22:04)
[2017-04-18] MEDS: GABAPENTIN 300 MG CAPSULE PO SCH (09:13)
[2017-04-18] MEDS: FAMOTIDINE 20 MG TABLET PO SCH ×2 (09:13→22:05)
--- NOTE | 2017-04-18 11:28 | PDOC PROGRESS REPORT ---
Subjective Progress Note for:: 04/18/17 Subjective:: Patient continues to report clinical improvement. No coughing. Denies any chills or fever. No PND orthopnea. No shortness of breath. No increasing edema. Patient continues to void freely. Blood pressure still uncontrolled as well as blood sugars. Physical Exam Vital Signs: Temp Pulse Resp BP Pulse Ox 97.7 F 66 17 151/69 H 97 04/18/17 07:54 04/18/17 07:54 04/18/17 07:54 04/18/17 07:54 04/18/17 07:54 Intake & Output 04/17/17 04/18/17 04/19/17 06:59 06:59 06:59 Intake Total 1016 1773 346 Output Total 1150 1350 Balance -134 423 346 General appearance: PRESENT: no acute distress, cooperative, morbidly obese Head exam: PRESENT: normocephalic Eye exam: PRESENT: conjunctiva pale Mouth exam: PRESENT: moist, neck supple Neck exam: ABSENT: JVD Respiratory exam: PRESENT: clear to auscultation eusebia Cardiovascular exam: PRESENT: RRR. ABSENT: gallop GI/Abdominal exam: PRESENT: soft. ABSENT: distended, tenderness Extremities exam: PRESENT: other - BKA on the right, trace edema on the left Neurological exam: PRESENT: alert, awake, oriented to situation Skin exam: PRESENT: dry, warm. ABSENT: cyanosis Results Laboratory Results: 04/17/17 04:52 04/18/17 06:15 04/18/17 06:15 Sodium 140.2 Potassium 3.7 Chloride 103 Carbon Dioxide 25 Anion Gap 12 BUN 77 H Creatinine 4.98 H Est GFR ( Amer) 16 L Est GFR (Non-Af Amer) 13 L Glucose 223 H Calcium 10.8 H Impressions: Renal Ultrasound 04/15/17 00:00 IMPRESSION: NORMAL RENAL AND BLADDER ULTRASOUND. Chest X-Ray 04/16/17 00:00 IMPRESSION: NO ACUTE RADIOGRAPHIC FINDING IN THE CHEST. Assessment & Plan - Diagnosis (1) DEREK (acute kidney injury) Is this a current diagnosis for this admission?: Yes (2) Diarrhea Qualifiers: Diarrhea type: unspecified type Qualified Code(s): R19.7 - Diarrhea , unspecified Is this a current diagnosis for this admission?: Yes (3) Sciatica Qualifiers: Laterality: unspecified laterality Qualified Code(s): M54.30 - Sciatica, unspecified side Is this a current diagnosis for this admission?: Yes (4) HTN (hypertension) Qualifiers: Hypertension type: essential hypertension Qualified Code(s): I10 - Essential (primary) hypertension Is this a current diagnosis for this admission?: Yes (5) Anemia Qualifiers: Anemia type: unspecified type Qualified Code(s): D64.9 - Anemia, unspecified Is this a current diagnosis for this admission?: Yes (6) Obesity Qualifiers: Obesity type: unspecified obesity type Obesity severity: morbid Qualified Code(s): E66.01 - Morbid (severe) obesity due to excess calories Is this a current diagnosis for this admission?: Yes (7) Peripheral vascular disease Is this a current diagnosis for this admission?: Yes (8) CHF (congestive heart failure) Qualifiers: Congestive heart failure type: unspecified congestive heart failure type Congestive heart failure chronicity: acute on chronic Qualified Code(s): I50.9 - Heart failure, unspecified Is this a current diagnosis for this admission?: Yes (9) Neuropathy Is this a current diagnosis for this admission?: Yes (10) Diabetes mellitus type 1 with hyperosmolarity Qualifiers: Diabetes mellitus complication detail: without coma Qualified Code(s ): E10.69 - Type 1 diabetes mellitus with other specified complication; E10.65 - Type 1 diabetes mellitus with hyperglycemia (11) Hyperlipidemia Qualifiers: Hyperlipidemia type: unspecified Qualified Code(s): E78.5 - Hyperlipidemia, unspecified Is this a current diagnosis for this admission?: Yes (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 We will continue gentle hydration and monitor creatinine. In the meantime I will resume the patient's hydralazine for blood pressure control. We will increase basal insulin as well as the prandial coverage for hyperglycemia. Continue sliding scale insulin. Awaiting assisted living facility bed.
[2017-04-18 16:39] LABS: A/G RATIO 1.2 (0.7-1.7); ALPHA-1-GLOBULIN 2 0.2 g/dL (0.0-0.4); GAMMA GLOBULIN 0.8 g/dL (0.4-1.8); PROTEIN TOTAL SERUM 5.6 g/dL (6.0-8.5)
[2017-04-18] MEDS: INSULIN GLARGINE,HUM.REC.ANLOG 300 UNIT/3 ML INSULN.PEN SUBCUT SCH (22:04)
[2017-04-18] MEDS: HYDRALAZINE HCL 50 MG TABLET PO SCH (22:05)
[2017-04-19] MEDS: NORMAL SALINE 1000 ML 1,000 ML IV PRN (04:03)
[2017-04-19] MEDS: HEPARIN SOD (PORCINE) 5,000 UNIT/ML 1 ML SYRINGE SUBCUT SCH ×3 (05:21→21:02)
[2017-04-19 05:35] LABS: ANION GAP 10 (5-19); BLOOD UREA NITROGEN 72 mg/dL (7-20); CALCIUM 10.5 mg/dL (8.4-10.2); CARBON DIOXIDE 25 mmol/L (22-30); CHLORIDE 108 mmol/L (98-107); CREATININE RESULT 4.39 mg/dL (0.52-1.25); GLUCOSE 255 mg/dL (75-110); POTASSIUM 4.1 mmol/L (3.6-5.0); SODIUM 142.6 mmol/L (137-145)
[2017-04-19] MEDS: INSULIN LISPRO 100 UNIT/ML 3 ML VIAL SUBCUT SCH ×3 (08:17→17:02)
[2017-04-19] MEDS: INSULIN LISPRO 100 UNIT/ML 3 ML VIAL SUBCUT PRN ×4 (08:17→21:00)
--- NOTE | 2017-04-19 10:01 | PDOC PROGRESS REPORT ---
Subjective Progress Note for:: 04/19/17 Subjective:: Patient without any nausea vomiting abdominal pain chills nor fever. There is no shortness of breath or chest pain. Patient reportedly feeling depressed because of his overall situation. Patient reports that it was taken away from her and she is the only one he has. Likewise he is going to be admitting in a shelter place, and he lost his home. Reportedly the patient does not care about living but will not do anything to hurt himself. Physical Exam Vital Signs: Temp Pulse Resp BP Pulse Ox 98.1 F 71 17 182/74 H 97 04/19/17 07:15 04/19/17 07:15 04/19/17 07:15 04/19/17 07:15 04/19/17 07:15 Intake & Output 04/18/17 04/19/17 04/20/17 06:59 06:59 06:59 Intake Total 1773 3296 360 Output Total 1350 2700 Balance 423 596 360 Weight 102.1 kg General appearance: PRESENT: no acute distress, morbidly obese Head exam: PRESENT: normocephalic Eye exam: PRESENT: conjunctiva pale Mouth exam: PRESENT: moist, neck supple Neck exam: ABSENT: JVD Respiratory exam: PRESENT: clear to auscultation eusebia. ABSENT: rhonchi, wheezes Cardiovascular exam: PRESENT: RRR. ABSENT: gallop GI/Abdominal exam: PRESENT: soft. ABSENT: distended - Obese, tenderness Extremities exam: PRESENT: other - Trace edema on the left, BKA on the right Neurological exam: PRESENT: alert, awake, oriented to situation Psychiatric exam: PRESENT: depressed Skin exam: PRESENT: dry, warm. ABSENT: cyanosis Results Laboratory Results: 04/17/17 04:52 04/19/17 05:05 04/19/17 05:05 Sodium 142.6 Potassium 4.1 Chloride 108 H Carbon Dioxide 25 Anion Gap 10 BUN 72 H Creatinine 4.39 H Est GFR ( Amer) 18 L Est GFR (Non-Af Amer) 15 L Glucose 255 H Calcium 10.5 H Impressions: Renal Ultrasound 04/15/17 00:00 IMPRESSION: NORMAL RENAL AND BLADDER ULTRASOUND. Chest X-Ray 04/16/17 00:00 IMPRESSION: NO ACUTE RADIOGRAPHIC FINDING IN THE CHEST. Assessment & Plan - Diagnosis (1) DEREK (acute kidney injury) Is this a current diagnosis for this admission?: Yes (2) Situational depression Is this a current diagnosis for this admission?: Yes (3) Diarrhea Qualifiers: Diarrhea type: unspecified type Qualified Code(s): R19.7 - Diarrhea , unspecified Is this a current diagnosis for this admission?: Yes (4) Sciatica Qualifiers: Laterality: unspecified laterality Qualified Code(s): M54.30 - Sciatica, unspecified side Is this a current diagnosis for this admission?: Yes (5) HTN (hypertension) Qualifiers: Hypertension type: essential hypertension Qualified Code(s): I10 - Essential (primary) hypertension Is this a current diagnosis for this admission?: Yes (6) Anemia Qualifiers: Anemia type: unspecified type Qualified Code(s): D64.9 - Anemia, unspecified Is this a current diagnosis for this admission?: Yes (7) Obesity Qualifiers: Obesity type: unspecified obesity type Obesity severity: morbid Qualified Code(s): E66.01 - Morbid (severe) obesity due to excess calories Is this a current diagnosis for this admission?: Yes (8) Peripheral vascular disease Is this a current diagnosis for this admission?: Yes (9) CHF (congestive heart failure) Qualifiers: Congestive heart failure type: unspecified congestive heart failure type Congestive heart failure chronicity: acute on chronic Qualified Code(s): I50.9 - Heart failure, unspecified Is this a current diagnosis for this admission?: Yes (10) Neuropathy Is this a current diagnosis for this admission?: Yes (11) Diabetes mellitus type 1 with hyperosmolarity Qualifiers: Diabetes mellitus complication detail: without coma Qualified Code(s ): E10.69 - Type 1 diabetes mellitus with other specified complication; E10.65 - Type 1 diabetes mellitus with hyperglycemia (12) Hyperlipidemia Qualifiers: Hyperlipidemia type: unspecified Qualified Code(s): E78.5 - Hyperlipidemia, unspecified Is this a current diagnosis for this admission?: Yes (13) 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 Monitor creatinine. Begin Zoloft. Put the patient on one- to-one sitter. Consult psychiatry service for evaluation for depression. Patient requesting counseling as well.
[2017-04-19] MEDS: GABAPENTIN 300 MG CAPSULE PO SCH (10:10)
[2017-04-19] MEDS: HYDRALAZINE HCL 50 MG TABLET PO SCH ×2 (10:10→21:03)
[2017-04-19] MEDS: FAMOTIDINE 20 MG TABLET PO SCH ×2 (10:11→21:03)
[2017-04-19] MEDS: CARVEDILOL 12.5 MG TABLET PO SCH ×2 (10:11→21:03)
[2017-04-19] MEDS: SERTRALINE HCL 50 MG TABLET PO SCH (11:42)
[2017-04-19] MEDS: FUROSEMIDE 80 MG TABLET PO SCH (17:03)
[2017-04-19] MEDS: HYDROCODONE/ACETAMINOPHEN 10-325 MG TABLET PO PRN (20:54)
[2017-04-19] MEDS: INSULIN GLARGINE,HUM.REC.ANLOG 300 UNIT/3 ML INSULN.PEN SUBCUT SCH (21:00)
[2017-04-20] MEDS: HEPARIN SOD (PORCINE) 5,000 UNIT/ML 1 ML SYRINGE SUBCUT SCH ×2 (05:27→14:12)
[2017-04-20 06:33] LABS: ANION GAP 11 (5-19); BLOOD UREA NITROGEN 70 mg/dL (7-20); CALCIUM 10.6 mg/dL (8.4-10.2); CARBON DIOXIDE 24 mmol/L (22-30); CHLORIDE 107 mmol/L (98-107); CREATININE RESULT 4.13 mg/dL (0.52-1.25); GLUCOSE 243 mg/dL (75-110); POTASSIUM 4.4 mmol/L (3.6-5.0); SODIUM 142.4 mmol/L (137-145)
[2017-04-20] MEDS: INSULIN LISPRO 100 UNIT/ML 3 ML VIAL SUBCUT PRN ×3 (07:58→17:44)
[2017-04-20] MEDS: INSULIN LISPRO 100 UNIT/ML 3 ML VIAL SUBCUT SCH ×3 (07:58→17:44)
--- NOTE | 2017-04-20 09:07 | PDOC PROGRESS REPORT ---
Subjective Progress Note for:: 04/20/17 Subjective:: Patient evaluated by psychiatry service yesterday. Patient placed on involuntary commitment due to suicidal ideations as reported. Today, patient's depression slightly less. Patient able to communicate with family members to the telephone. No reported respiratory distress or temperature spikes. No nausea or vomiting. Patient denies any body malaise, PND orthopnea. Physical Exam Vital Signs: Temp Pulse Resp BP Pulse Ox 97.9 F 64 18 146/63 H 98 04/20/17 07:27 04/20/17 07:27 04/20/17 07:27 04/20/17 07:27 04/20/17 07:27 Intake & Output 04/19/17 04/20/17 04/21/17 06:59 06:59 06:59 Intake Total 3296 1450 Output Total 2700 1625 Balance 596 -175 Weight 102.1 kg 172 kg General appearance: PRESENT: no acute distress, obese Head exam: PRESENT: normocephalic Mouth exam: PRESENT: moist, neck supple Neck exam: ABSENT: JVD Respiratory exam: PRESENT: clear to auscultation eusebia Cardiovascular exam: PRESENT: RRR GI/Abdominal exam: PRESENT: soft. ABSENT: distended - Obese Extremities exam: PRESENT: other - Trace edema left lower extremity, below-knee amputation of the right Neurological exam: PRESENT: alert, awake Skin exam: PRESENT: dry, warm. ABSENT: cyanosis Results Laboratory Results: 04/17/17 04:52 04/20/17 05:43 04/17/17 04/20/17 04:52 05:43 Sodium 142.4 Potassium 4.4 Chloride 107 Carbon Dioxide 24 Anion Gap 11 BUN 70 H Creatinine 4.13 H Est GFR ( Amer) 19 L Est GFR (Non-Af Amer) 16 L Glucose 243 H Calcium 10.6 H Total Protein 5.6 L Albumin 3.0 Impressions: Renal Ultrasound 04/15/17 00:00 IMPRESSION: NORMAL RENAL AND BLADDER ULTRASOUND. Chest X-Ray 04/16/17 00:00 IMPRESSION: NO ACUTE RADIOGRAPHIC FINDING IN THE CHEST. Assessment & Plan - Diagnosis (1) DEREK (acute kidney injury) Is this a current diagnosis for this admission?: Yes (2) Situational depression Is this a current diagnosis for this admission?: Yes (3) Diarrhea Qualifiers: Diarrhea type: unspecified type Qualified Code(s): R19.7 - Diarrhea , unspecified Is this a current diagnosis for this admission?: Yes (4) Sciatica Qualifiers: Laterality: unspecified laterality Qualified Code(s): M54.30 - Sciatica, unspecified side Is this a current diagnosis for this admission?: Yes (5) HTN (hypertension) Qualifiers: Hypertension type: essential hypertension Qualified Code(s): I10 - Essential (primary) hypertension Is this a current diagnosis for this admission?: Yes (6) Anemia Qualifiers: Anemia type: unspecified type Qualified Code(s): D64.9 - Anemia, unspecified Is this a current diagnosis for this admission?: Yes (7) Obesity Qualifiers: Obesity type: unspecified obesity type Obesity severity: morbid Qualified Code(s): E66.01 - Morbid (severe) obesity due to excess calories Is this a current diagnosis for this admission?: Yes (8) Peripheral vascular disease Is this a current diagnosis for this admission?: Yes (9) CHF (congestive heart failure) Qualifiers: Congestive heart failure type: unspecified congestive heart failure type Congestive heart failure chronicity: acute on chronic Qualified Code(s): I50.9 - Heart failure, unspecified Is this a current diagnosis for this admission?: Yes (10) Neuropathy Is this a current diagnosis for this admission?: Yes (11) Diabetes mellitus type 1 with hyperosmolarity Qualifiers: Diabetes mellitus complication detail: without coma Qualified Code(s ): E10.69 - Type 1 diabetes mellitus with other specified complication; E10.65 - Type 1 diabetes mellitus with hyperglycemia (12) Hyperlipidemia Qualifiers: Hyperlipidemia type: unspecified Qualified Code(s): E78.5 - Hyperlipidemia, unspecified Is this a current diagnosis for this admission?: Yes (13) 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 Appreciate psychiatry input. Continue to monitor creatinine as it trends down. Continue supportive care.
[2017-04-20] MEDS: HYDRALAZINE HCL 50 MG TABLET PO SCH (09:29)
[2017-04-20] MEDS: FUROSEMIDE 80 MG TABLET PO SCH ×2 (09:29→17:44)
[2017-04-20] MEDS: FAMOTIDINE 20 MG TABLET PO SCH (09:29)
[2017-04-20] MEDS: CARVEDILOL 12.5 MG TABLET PO SCH (09:30)
[2017-04-20] MEDS: GABAPENTIN 300 MG CAPSULE PO SCH (09:30)
[2017-04-20] MEDS: SERTRALINE HCL 50 MG TABLET PO SCH (11:46)
[2017-04-20] MEDS: POLYETHYLENE GLYCOL 3350 POWDER 17 GM/1 PACKET PO PRN (11:46)
[2017-04-21] MEDS: FAMOTIDINE 20 MG TABLET PO SCH ×3 (00:02→22:25)
[2017-04-21] MEDS: HEPARIN SOD (PORCINE) 5,000 UNIT/ML 1 ML SYRINGE SUBCUT SCH ×4 (00:06→22:25)
[2017-04-21] MEDS: INSULIN LISPRO 100 UNIT/ML 3 ML VIAL SUBCUT PRN ×5 (00:07→22:25)
[2017-04-21] MEDS: CARVEDILOL 12.5 MG TABLET PO SCH ×3 (00:08→23:43)
[2017-04-21] MEDS: INSULIN GLARGINE,HUM.REC.ANLOG 300 UNIT/3 ML INSULN.PEN SUBCUT SCH ×2 (00:09→22:25)
[2017-04-21] MEDS: HYDRALAZINE HCL 50 MG TABLET PO SCH ×3 (00:09→23:43)
[2017-04-21 05:22] LABS: ANION GAP 11 (5-19); BLOOD UREA NITROGEN 72 mg/dL (7-20); CALCIUM 10.6 mg/dL (8.4-10.2); CARBON DIOXIDE 24 mmol/L (22-30); CHLORIDE 106 mmol/L (98-107); CREATININE RESULT 4.59 mg/dL (0.52-1.25); GLUCOSE 272 mg/dL (75-110); POTASSIUM 4.6 mmol/L (3.6-5.0); SODIUM 140.7 mmol/L (137-145)
[2017-04-21] MEDS: INSULIN LISPRO 100 UNIT/ML 3 ML VIAL SUBCUT SCH ×3 (08:37→17:38)
[2017-04-21] MEDS: GABAPENTIN 300 MG CAPSULE PO SCH (09:17)
[2017-04-21] MEDS: FUROSEMIDE 80 MG TABLET PO SCH ×2 (09:18→17:40)
[2017-04-21] MEDS: SERTRALINE HCL 50 MG TABLET PO SCH (12:52)
[2017-04-21] MEDS: HYDROCODONE/ACETAMINOPHEN 10-325 MG TABLET PO PRN (13:13)
--- NOTE | 2017-04-21 13:33 | PDOC PROGRESS REPORT ---
Subjective Progress Note for:: 04/21/17 Subjective:: Patient remains depressed but denies suicidal ideations at this time. No reported respiratory distress or temperature spikes. No nausea or vomiting. Psychiatry reportedly mistakenly IVC'd him this weekend and eventually rescinded it. The sitter was likewise discontinued. No reported respiratory distress or temperature spikes. Patient refusing IV fluids. Patient states he will just drink a lot of fluids. Physical Exam Vital Signs: Temp Pulse Resp BP Pulse Ox 97.6 F 67 18 128/63 H 100 04/21/17 11:45 04/21/17 11:45 04/21/17 11:45 04/21/17 11:45 04/21/17 11:45 Intake & Output 04/20/17 04/21/17 04/22/17 06:59 06:59 06:59 Intake Total 1450 1278 0 Output Total 1625 1825 Balance -175 -547 0 Weight 172 kg 172 kg General appearance: PRESENT: no acute distress, obese Head exam: PRESENT: normocephalic Eye exam: PRESENT: conjunctiva pale Mouth exam: PRESENT: moist, neck supple Neck exam: ABSENT: JVD Respiratory exam: PRESENT: clear to auscultation eusebia. ABSENT: rhonchi, wheezes Cardiovascular exam: PRESENT: RRR. ABSENT: gallop GI/Abdominal exam: PRESENT: soft. ABSENT: distended - Obese, tenderness Extremities exam: PRESENT: other - Below knee amputation on the right, trace lower extremity edema on the left Neurological exam: PRESENT: alert, awake, oriented to situation Psychiatric exam: ABSENT: homicidal ideation, suicidal ideation Skin exam: PRESENT: dry, warm. ABSENT: cyanosis Results Laboratory Results: 04/17/17 04:52 04/21/17 04:46 04/21/17 04:46 Sodium 140.7 Potassium 4.6 Chloride 106 Carbon Dioxide 24 Anion Gap 11 BUN 72 H Creatinine 4.59 H Est GFR ( Amer) 17 L Est GFR (Non-Af Amer) 14 L Glucose 272 H Calcium 10.6 H Impressions: Renal Ultrasound 04/15/17 00:00 IMPRESSION: NORMAL RENAL AND BLADDER ULTRASOUND. Chest X-Ray 04/16/17 00:00 IMPRESSION: NO ACUTE RADIOGRAPHIC FINDING IN THE CHEST. Assessment & Plan - Diagnosis (1) DEREK (acute kidney injury) Is this a current diagnosis for this admission?: Yes (2) Situational depression Is this a current diagnosis for this admission?: Yes (3) Diarrhea Qualifiers: Diarrhea type: unspecified type Qualified Code(s): R19.7 - Diarrhea , unspecified Is this a current diagnosis for this admission?: Yes (4) Sciatica Qualifiers: Laterality: unspecified laterality Qualified Code(s): M54.30 - Sciatica, unspecified side Is this a current diagnosis for this admission?: Yes (5) HTN (hypertension) Qualifiers: Hypertension type: essential hypertension Qualified Code(s): I10 - Essential (primary) hypertension Is this a current diagnosis for this admission?: Yes (6) Anemia Qualifiers: Anemia type: unspecified type Qualified Code(s): D64.9 - Anemia, unspecified Is this a current diagnosis for this admission?: Yes (7) Obesity Qualifiers: Obesity type: unspecified obesity type Obesity severity: morbid Qualified Code(s): E66.01 - Morbid (severe) obesity due to excess calories Is this a current diagnosis for this admission?: Yes (8) Peripheral vascular disease Is this a current diagnosis for this admission?: Yes (9) CHF (congestive heart failure) Qualifiers: Congestive heart failure type: unspecified congestive heart failure type Congestive heart failure chronicity: acute on chronic Qualified Code(s): I50.9 - Heart failure, unspecified Is this a current diagnosis for this admission?: Yes (10) Neuropathy Is this a current diagnosis for this admission?: Yes (11) Diabetes mellitus type 1 with hyperosmolarity Qualifiers: Diabetes mellitus complication detail: without coma Qualified Code(s ): E10.69 - Type 1 diabetes mellitus with other specified complication; E10.65 - Type 1 diabetes mellitus with hyperglycemia (12) Hyperlipidemia Qualifiers: Hyperlipidemia type: unspecified Qualified Code(s): E78.5 - Hyperlipidemia, unspecified Is this a current diagnosis for this admission?: Yes (13) 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 Strong. Patient IV fluids can be discontinued and has oral fluids despite creatinine not back to baseline. Okay to resume diuretics as well. Patient is no longer IVC. We will continue current management and medications. Awaiting placement. Continue to monitor creatinine as it is trending up.
--- NOTE | 2017-04-21 16:08 | PDOC PROGRESS REPORT ---
Subjective Progress Note for:: 04/21/17 Subjective:: Patient has had acute depressive episode to the point of having suicidal intentions. He has been referred to the psychiatrist who has done an involuntary commitment. Patient is presently better but still has some sad thoughts about his future and his present predicament. He denies any history of chest pain shortness of breath. He has noticed mild pedal edema. His fluid has been stopped. Discussed the issues with Dr. Mott hospitalist. Physical Exam Vital Signs: Temp Pulse Resp BP Pulse Ox 97.6 F 67 18 128/63 H 100 04/21/17 11:45 04/21/17 11:45 04/21/17 11:45 04/21/17 11:45 04/21/17 11:45 Intake & Output 04/20/17 04/21/17 04/22/17 06:59 06:59 06:59 Intake Total 1450 1278 0 Output Total 1625 1825 Balance -175 -547 0 Weight 172 kg 172 kg General appearance: PRESENT: no acute distress Respiratory exam: PRESENT: clear to auscultation eusebia. ABSENT: crackles, rhonchi Cardiovascular exam: PRESENT: +S1, +S2, systolic murmur GI/Abdominal exam: PRESENT: normal bowel sounds, soft. ABSENT: diminished bowel sounds, distended, guarding, organomegaly, tenderness Results Laboratory Results: 04/17/17 04:52 04/21/17 04:46 04/21/17 04:46 Sodium 140.7 Potassium 4.6 Chloride 106 Carbon Dioxide 24 Anion Gap 11 BUN 72 H Creatinine 4.59 H Est GFR ( Amer) 17 L Est GFR (Non-Af Amer) 14 L Glucose 272 H Calcium 10.6 H Impressions: Renal Ultrasound 04/15/17 00:00 IMPRESSION: NORMAL RENAL AND BLADDER ULTRASOUND. Chest X-Ray 04/16/17 00:00 IMPRESSION: NO ACUTE RADIOGRAPHIC FINDING IN THE CHEST. Assessment & Plan - Diagnosis (1) DEREK (acute kidney injury) Is this a current diagnosis for this admission?: YesPlan: Off hydration. Showing early fluid overload. No obvious indications for renal replacements.Patient currently also has been begun on p.o. Lasix Electrolytes are stable.OK to discharge from renal point of view and will be glad to see him as an out patient. (2) Blindness Is this a current diagnosis for this admission?: Yes (3) Obesity Qualifiers: Obesity type: unspecified obesity type Obesity severity: morbid Qualified Code(s): E66.01 - Morbid (severe) obesity due to excess calories Is this a current diagnosis for this admission?: Yes (4) Peripheral vascular disease Is this a current diagnosis for this admission?: Yes (5) Sciatica Qualifiers: Laterality: unspecified laterality Qualified Code(s): M54.30 - Sciatica, unspecified side Is this a current diagnosis for this admission?: Yes (6) HTN (hypertension) Qualifiers: Hypertension type: essential hypertension Qualified Code(s): I10 - Essential (primary) hypertension Is this a current diagnosis for this admission?: Yes (7) Chronic kidney disease, stage IV (severe) Plan: Secondary to diabetic nephropathy with acute insult ongoing now. Renal numbers are however improving. Monitor. No acute indications for renal replacements. (8) Anemia Qualifiers: Anemia type: unspecified type Qualified Code(s): D64.9 - Anemia, unspecified Is this a current diagnosis for this admission?: Yes (9) Proteinuria due to type 2 diabetes mellitus Plan: Likely nephrotic. Quantify. Later consider use of ROB inhibitors.
[2017-04-22] MEDS: HEPARIN SOD (PORCINE) 5,000 UNIT/ML 1 ML SYRINGE SUBCUT SCH ×3 (06:00→22:18)
[2017-04-22 06:13] LABS: ANION GAP 10 (5-19); BLOOD UREA NITROGEN 75 mg/dL (7-20); CALCIUM 10.2 mg/dL (8.4-10.2); CARBON DIOXIDE 24 mmol/L (22-30); CHLORIDE 105 mmol/L (98-107); CREATININE RESULT 4.94 mg/dL (0.52-1.25); GLUCOSE 217 mg/dL (75-110); POTASSIUM 4.7 mmol/L (3.6-5.0); SODIUM 138.5 mmol/L (137-145)
[2017-04-22] MEDS: INSULIN LISPRO 100 UNIT/ML 3 ML VIAL SUBCUT SCH ×3 (08:35→17:28)
[2017-04-22] MEDS: INSULIN LISPRO 100 UNIT/ML 3 ML VIAL SUBCUT PRN ×4 (08:35→22:18)
[2017-04-22] MEDS: POLYETHYLENE GLYCOL 3350 POWDER 17 GM/1 PACKET PO PRN (08:35)
[2017-04-22] MEDS: HYDRALAZINE HCL 50 MG TABLET PO SCH ×2 (10:47→22:18)
[2017-04-22] MEDS: FUROSEMIDE 80 MG TABLET PO SCH ×2 (10:48→17:28)
[2017-04-22] MEDS: FAMOTIDINE 20 MG TABLET PO SCH ×2 (10:48→22:18)
[2017-04-22] MEDS: GABAPENTIN 300 MG CAPSULE PO SCH (10:48)
[2017-04-22] MEDS: CARVEDILOL 12.5 MG TABLET PO SCH ×2 (10:48→22:18)
[2017-04-22] MEDS: SERTRALINE HCL 50 MG TABLET PO SCH (13:08)
--- NOTE | 2017-04-22 13:30 | PDOC PROGRESS REPORT ---
Subjective Progress Note for:: 04/22/17 Subjective:: Denies any complaints Physical Exam Vital Signs: Temp Pulse Resp BP Pulse Ox 97.9 F 61 18 130/61 H 97 04/22/17 11:37 04/22/17 11:37 04/22/17 11:37 04/22/17 11:37 04/22/17 11:37 Intake & Output 04/21/17 04/22/17 04/23/17 06:59 06:59 06:59 Intake Total 1278 2700 Output Total 1825 1975 Balance -547 725 Weight 172 kg 172.9 kg General appearance: PRESENT: no acute distress Eye exam: PRESENT: conjunctiva pink. ABSENT: scleral icterus Mouth exam: PRESENT: moist, tongue midline Neck exam: ABSENT: JVD Respiratory exam: PRESENT: clear to auscultation eusebia. ABSENT: rales, rhonchi, wheezes Cardiovascular exam: PRESENT: RRR. ABSENT: diastolic murmur, rubs, systolic murmur GI/Abdominal exam: PRESENT: normal bowel sounds, soft. ABSENT: distended, guarding, mass, organolmegaly, rebound, tenderness Extremities exam: PRESENT: other - Right BKA. ABSENT: calf tenderness, clubbing , pedal edema Neurological exam: PRESENT: alert, awake, oriented to person, oriented to place , oriented to time, oriented to situation, CN II-XII grossly intact. ABSENT: motor sensory deficit Psychiatric exam: PRESENT: appropriate affect Skin exam: PRESENT: dry, intact, warm. ABSENT: cyanosis, rash Results Laboratory Results: 04/17/17 04:52 04/22/17 04:56 04/22/17 04:56 Sodium 138.5 Potassium 4.7 Chloride 105 Carbon Dioxide 24 Anion Gap 10 BUN 75 H Creatinine 4.94 H Est GFR ( Amer) 16 L Est GFR (Non-Af Amer) 13 L Glucose 217 H Calcium 10.2 Impressions: Renal Ultrasound 04/15/17 00:00 IMPRESSION: NORMAL RENAL AND BLADDER ULTRASOUND. Chest X-Ray 04/16/17 00:00 IMPRESSION: NO ACUTE RADIOGRAPHIC FINDING IN THE CHEST. Assessment & Plan - Diagnosis (1) CKD (chronic kidney disease) Qualifiers: Chronic kidney disease stage: stage 3 (moderate) Qualified Code(s): N18.3 - Chronic kidney disease, stage 3 (moderate) Is this a current diagnosis for this admission?: YesPlan: Patient has acute on chronic renal failure. His baseline creatinine is around 3. He has had nausea and vomiting and dehydration as the cause. Has been evaluated by nephrology. (2) Sciatica Qualifiers: Laterality: unspecified laterality Qualified Code(s): M54.30 - Sciatica, unspecified side Is this a current diagnosis for this admission?: YesPlan: Resolved (3) Peripheral vascular disease Is this a current diagnosis for this admission?: YesPlan: Patient has had a previous below the knee amputation on the right. (4) Obesity Qualifiers: Obesity type: unspecified obesity type Obesity severity: morbid Qualified Code(s): E66.01 - Morbid (severe) obesity due to excess calories Is this a current diagnosis for this admission?: Yes (5) Blindness Is this a current diagnosis for this admission?: Yes (6) CHF (congestive heart failure) Qualifiers: Congestive heart failure type: unspecified congestive heart failure type Congestive heart failure chronicity: acute on chronic Qualified Code(s): I50.9 - Heart failure, unspecified Is this a current diagnosis for this admission?: YesPlan: Has a history of chronic diastolic congestive heart failure. Currently euvolemic (7) HTN (hypertension) Qualifiers: Hypertension type: essential hypertension Qualified Code(s): I10 - Essential (primary) hypertension Is this a current diagnosis for this admission?: Yes (8) Neuropathy Is this a current diagnosis for this admission?: Yes - Time Time Spent with patient: 25-34 minutes - Inpatient Certification Medical Necessity: Need Close Monitoring Due to Risk of Patient Decompensation - Plan Summary Plan Summary: We will discharge to assisted living when a bed becomes available.
[2017-04-22] MEDS: HYDROCODONE/ACETAMINOPHEN 10-325 MG TABLET PO PRN (14:10)
[2017-04-22] MEDS ORDERED: NITROGLYCERIN 0.4 MG/TAB 25 TAB/BOTTLE SL PRN (14:46)
[2017-04-22] MEDS ORDERED: MORPHINE SULFATE 10 MG/ML INJ IV PRN (16:07)
--- NOTE | 2017-04-22 17:17 | EKG REPORT ---
SEVERITY:- ABNORMAL ECG - SINUS RHYTHM PROBABLE LEFT VENTRICULAR HYPERTROPHY : Confirmed by: Arlette Gonzalez MD 22-Apr-2017 17:17:04
[2017-04-22] MEDS: INSULIN GLARGINE,HUM.REC.ANLOG 300 UNIT/3 ML INSULN.PEN SUBCUT SCH (22:18)
[2017-04-23] MEDS: HEPARIN SOD (PORCINE) 5,000 UNIT/ML 1 ML SYRINGE SUBCUT SCH ×3 (06:00→22:43)
[2017-04-23] MEDS: INSULIN LISPRO 100 UNIT/ML 3 ML VIAL SUBCUT SCH ×3 (08:13→17:10)
[2017-04-23] MEDS: INSULIN LISPRO 100 UNIT/ML 3 ML VIAL SUBCUT PRN ×3 (08:15→22:44)
[2017-04-23] MEDS: FAMOTIDINE 20 MG TABLET PO SCH ×2 (10:09→22:43)
[2017-04-23] MEDS: GABAPENTIN 300 MG CAPSULE PO SCH (10:09)
[2017-04-23] MEDS: HYDRALAZINE HCL 50 MG TABLET PO SCH ×2 (10:10→22:44)
[2017-04-23] MEDS: CARVEDILOL 12.5 MG TABLET PO SCH ×2 (10:10→22:43)
[2017-04-23] MEDS: FUROSEMIDE 80 MG TABLET PO SCH ×2 (10:10→17:08)
--- NOTE | 2017-04-23 12:59 | PDOC PROGRESS REPORT ---
Subjective Progress Note for:: 04/23/17 Subjective:: Complains of constipation Physical Exam Vital Signs: Temp Pulse Resp BP Pulse Ox 97.7 F 54 L 18 145/62 H 99 04/23/17 08:00 04/23/17 08:00 04/23/17 08:00 04/23/17 08:00 04/23/17 08:00 Intake & Output 04/22/17 04/23/17 04/24/17 06:59 06:59 06:59 Intake Total 2700 2250 Output Total 1975 1675 Balance 725 575 Weight 172.9 kg 173.1 kg General appearance: PRESENT: no acute distress Eye exam: PRESENT: conjunctiva pink. ABSENT: scleral icterus Ear exam: PRESENT: normal external ear exam Mouth exam: PRESENT: moist, tongue midline Neck exam: ABSENT: JVD Respiratory exam: PRESENT: clear to auscultation eusebia. ABSENT: rales, rhonchi, wheezes Cardiovascular exam: PRESENT: RRR. ABSENT: diastolic murmur, rubs, systolic murmur GI/Abdominal exam: PRESENT: normal bowel sounds, soft. ABSENT: distended, guarding, mass, organolmegaly, rebound, tenderness Extremities exam: ABSENT: calf tenderness, clubbing, pedal edema Neurological exam: PRESENT: alert, awake, oriented to person, oriented to place , oriented to time, oriented to situation, CN II-XII grossly intact. ABSENT: motor sensory deficit Psychiatric exam: PRESENT: appropriate affect Skin exam: PRESENT: dry, intact, warm, other - Status post right BKA. ABSENT: cyanosis, rash Results Laboratory Results: 04/17/17 04:52 04/22/17 04:56 Impressions: Renal Ultrasound 04/15/17 00:00 IMPRESSION: NORMAL RENAL AND BLADDER ULTRASOUND. Chest X-Ray 04/16/17 00:00 IMPRESSION: NO ACUTE RADIOGRAPHIC FINDING IN THE CHEST. Assessment & Plan - Diagnosis (1) CKD (chronic kidney disease) Qualifiers: Chronic kidney disease stage: stage 3 (moderate) Qualified Code(s): N18.3 - Chronic kidney disease, stage 3 (moderate) Is this a current diagnosis for this admission?: YesPlan: Patient has acute on chronic renal failure. His baseline creatinine is around 3. He has had nausea and vomiting and dehydration as the cause. Has been evaluated by nephrology. (2) Sciatica Qualifiers: Laterality: unspecified laterality Qualified Code(s): M54.30 - Sciatica, unspecified side Is this a current diagnosis for this admission?: YesPlan: Resolved (3) Peripheral vascular disease Is this a current diagnosis for this admission?: YesPlan: Patient has had a previous below the knee amputation on the right. (4) Obesity Qualifiers: Obesity type: unspecified obesity type Obesity severity: morbid Qualified Code(s): E66.01 - Morbid (severe) obesity due to excess calories Is this a current diagnosis for this admission?: Yes (5) Blindness Is this a current diagnosis for this admission?: Yes (6) CHF (congestive heart failure) Qualifiers: Congestive heart failure type: unspecified congestive heart failure type Congestive heart failure chronicity: acute on chronic Qualified Code(s): I50.9 - Heart failure, unspecified Is this a current diagnosis for this admission?: YesPlan: Has a history of chronic diastolic congestive heart failure. Currently euvolemic (7) HTN (hypertension) Qualifiers: Hypertension type: essential hypertension Qualified Code(s): I10 - Essential (primary) hypertension Is this a current diagnosis for this admission?: Yes (8) Neuropathy Is this a current diagnosis for this admission?: Yes (9) Constipation Is this a current diagnosis for this admission?: YesPlan: We will give an enema. - Time Time Spent with patient: 25-34 minutes - Plan Summary Plan Summary: Awaiting assisted-living bed offer.
[2017-04-23] MEDS: SERTRALINE HCL 50 MG TABLET PO SCH (13:05)
[2017-04-23] MEDS: TRAMADOL HCL 50 MG TABLET PO PRN (13:09)
--- NOTE | 2017-04-23 16:50 | PDOC PROGRESS REPORT ---
Subjective Progress Note for:: 04/23/17 Subjective:: Patient seen in the hospital today. He seems more cheerful. He denies suicidal or homicidal ideations.He denies any history of chest pain shortness of breath. Appetite is improving.Labs were reviewed with the patient which shows some worsening of his renal numbers. Physical Exam Vital Signs: Temp Pulse Resp BP Pulse Ox 97.6 F 68 18 124/66 98 04/23/17 16:00 04/23/17 16:00 04/23/17 16:00 04/23/17 16:00 04/23/17 16:00 Intake & Output 04/22/17 04/23/17 04/24/17 06:59 06:59 06:59 Intake Total 2700 2250 510 Output Total 1975 1675 1200 Balance 725 575 -690 Weight 172.9 kg 173.1 kg General appearance: PRESENT: no acute distress Respiratory exam: PRESENT: clear to auscultation eusebia. ABSENT: crackles, rhonchi Cardiovascular exam: PRESENT: +S1, +S2, systolic murmur GI/Abdominal exam: PRESENT: normal bowel sounds, soft. ABSENT: diminished bowel sounds, distended, guarding, organomegaly, tenderness Neurological exam: PRESENT: alert, awake, oriented to person, oriented to place , oriented to time Results Laboratory Results: 04/17/17 04:52 04/22/17 04:56 Impressions: Renal Ultrasound 04/15/17 00:00 IMPRESSION: NORMAL RENAL AND BLADDER ULTRASOUND. Chest X-Ray 04/16/17 00:00 IMPRESSION: NO ACUTE RADIOGRAPHIC FINDING IN THE CHEST. Assessment & Plan - Diagnosis (1) DEREK (acute kidney injury) Is this a current diagnosis for this admission?: YesPlan: Renal numbers are slightly worse. Nonoliguric. No obvious indications for renal replacements.Patient currently also has been begun on p.o. Lasix Electrolytes are stable.OK to discharge from renal point of view and will be glad to see him as an out patient. (2) Blindness Is this a current diagnosis for this admission?: Yes (3) Obesity Qualifiers: Obesity type: unspecified obesity type Obesity severity: morbid Qualified Code(s): E66.01 - Morbid (severe) obesity due to excess calories Is this a current diagnosis for this admission?: YesPlan: Morbid and needs to lose weight for obvious reasons. (4) Peripheral vascular disease Is this a current diagnosis for this admission?: Yes (5) Sciatica Qualifiers: Laterality: unspecified laterality Qualified Code(s): M54.30 - Sciatica, unspecified side Is this a current diagnosis for this admission?: Yes (6) HTN (hypertension) Qualifiers: Hypertension type: essential hypertension Qualified Code(s): I10 - Essential (primary) hypertension Is this a current diagnosis for this admission?: Yes (7) Chronic kidney disease, stage IV (severe) Plan: Secondary to diabetic nephropathy with acute insult ongoing now. Renal numbers are continuing to worsen though slowly. Monitor. No acute indications for renal replacements.If his renal numbers are relatively stable he can be discharged from a renal standpoint and I can follow him up in my office in about 10 days time with labs. (8) Anemia Qualifiers: Anemia type: unspecified type Qualified Code(s): D64.9 - Anemia, unspecified Is this a current diagnosis for this admission?: YesPlan: Relatively stable. Began on erythropoietin.Needs to continue this as an outpatient. (9) Proteinuria due to type 2 diabetes mellitus Plan: Nephrotic. Later consider use of ROB inhibitors.
[2017-04-23] MEDS: EPOETIN ALFA INJ 20000 UNIT/1 ML VIAL (RENAL) SUBCUT SCH (18:03)
[2017-04-23] MEDS: INSULIN GLARGINE,HUM.REC.ANLOG 300 UNIT/3 ML INSULN.PEN SUBCUT SCH (22:44)
[2017-04-24 05:55] LABS: ANION GAP 12 (5-19); BLOOD UREA NITROGEN 79 mg/dL (7-20); CALCIUM 10.1 mg/dL (8.4-10.2); CARBON DIOXIDE 22 mmol/L (22-30); CHLORIDE 105 mmol/L (98-107); CREATININE RESULT 4.92 mg/dL (0.52-1.25); GLUCOSE 167 mg/dL (75-110); POTASSIUM 4.9 mmol/L (3.6-5.0)
[2017-04-24] MEDS: HEPARIN SOD (PORCINE) 5,000 UNIT/ML 1 ML SYRINGE SUBCUT SCH ×3 (06:47→21:52)
[2017-04-24] MEDS: INSULIN LISPRO 100 UNIT/ML 3 ML VIAL SUBCUT SCH ×3 (08:58→17:58)
[2017-04-24] MEDS: HYDRALAZINE HCL 50 MG TABLET PO SCH ×2 (10:35→21:52)
[2017-04-24] MEDS: GABAPENTIN 300 MG CAPSULE PO SCH (10:35)
[2017-04-24] MEDS: CARVEDILOL 12.5 MG TABLET PO SCH ×2 (10:35→21:52)
[2017-04-24] MEDS: FAMOTIDINE 20 MG TABLET PO SCH ×2 (10:35→21:52)
[2017-04-24] MEDS: FUROSEMIDE 80 MG TABLET PO SCH ×2 (10:35→17:58)
[2017-04-24] MEDS: SERTRALINE HCL 50 MG TABLET PO SCH (11:58)
[2017-04-24] MEDS: TRAMADOL HCL 50 MG TABLET PO PRN (12:00)
--- NOTE | 2017-04-24 12:35 | PDOC PROGRESS REPORT ---
Subjective Progress Note for:: 04/24/17 Subjective:: Complains of constipation Physical Exam Vital Signs: Temp Pulse Resp BP Pulse Ox 97.5 F 58 L 14 153/67 H 98 04/24/17 12:00 04/24/17 12:00 04/24/17 12:00 04/24/17 12:00 04/24/17 12:00 Intake & Output 04/23/17 04/24/17 04/25/17 06:59 06:59 06:59 Intake Total 2250 1150 Output Total 1675 1675 Balance 575 -525 Weight 173.1 kg 174.7 kg General appearance: PRESENT: no acute distress Eye exam: PRESENT: conjunctiva pink. ABSENT: scleral icterus Mouth exam: PRESENT: moist, tongue midline Neck exam: ABSENT: JVD Respiratory exam: PRESENT: clear to auscultation eusebia. ABSENT: rales, rhonchi, wheezes Cardiovascular exam: PRESENT: RRR. ABSENT: diastolic murmur, rubs, systolic murmur GI/Abdominal exam: PRESENT: normal bowel sounds, soft. ABSENT: distended, guarding, mass, organolmegaly, rebound, tenderness Extremities exam: PRESENT: pedal edema, +1 edema, other - Status post right BKA. ABSENT: calf tenderness, clubbing Neurological exam: PRESENT: alert, awake, oriented to person, oriented to place , oriented to time, oriented to situation, CN II-XII grossly intact. ABSENT: motor sensory deficit Psychiatric exam: PRESENT: appropriate affect Skin exam: PRESENT: dry, intact, warm. ABSENT: cyanosis, rash Results Laboratory Results: 04/17/17 04:52 04/24/17 05:03 04/24/17 05:03 Sodium 139.0 Potassium 4.9 Chloride 105 Carbon Dioxide 22 Anion Gap 12 BUN 79 H Creatinine 4.92 H Est GFR ( Amer) 16 L Est GFR (Non-Af Amer) 13 L Glucose 167 H Calcium 10.1 Impressions: Renal Ultrasound 04/15/17 00:00 IMPRESSION: NORMAL RENAL AND BLADDER ULTRASOUND. Chest X-Ray 04/16/17 00:00 IMPRESSION: NO ACUTE RADIOGRAPHIC FINDING IN THE CHEST. Assessment & Plan - Diagnosis (1) CKD (chronic kidney disease) Qualifiers: Chronic kidney disease stage: stage 3 (moderate) Qualified Code(s): N18.3 - Chronic kidney disease, stage 3 (moderate) Is this a current diagnosis for this admission?: YesPlan: Patient has acute on chronic renal failure. His baseline creatinine is around 3. He has had nausea and vomiting and dehydration as the cause. Has been evaluated by nephrology. (2) Sciatica Qualifiers: Laterality: unspecified laterality Qualified Code(s): M54.30 - Sciatica, unspecified side Is this a current diagnosis for this admission?: YesPlan: Resolved (3) Peripheral vascular disease Is this a current diagnosis for this admission?: YesPlan: Patient has had a previous below the knee amputation on the right. (4) Obesity Qualifiers: Obesity type: unspecified obesity type Obesity severity: morbid Qualified Code(s): E66.01 - Morbid (severe) obesity due to excess calories Is this a current diagnosis for this admission?: Yes (5) Blindness Is this a current diagnosis for this admission?: Yes (6) CHF (congestive heart failure) Qualifiers: Congestive heart failure type: unspecified congestive heart failure type Congestive heart failure chronicity: acute on chronic Qualified Code(s): I50.9 - Heart failure, unspecified Is this a current diagnosis for this admission?: YesPlan: Has a history of chronic diastolic congestive heart failure. Currently euvolemic (7) HTN (hypertension) Qualifiers: Hypertension type: essential hypertension Qualified Code(s): I10 - Essential (primary) hypertension Is this a current diagnosis for this admission?: Yes (8) Neuropathy Is this a current diagnosis for this admission?: Yes (9) Constipation Is this a current diagnosis for this admission?: YesPlan: Improving - Time Time Spent with patient: 15-24 minutes - Plan Summary Plan Summary: Awaiting for an assisted-living bed to become available for discharge.
[2017-04-24] MEDS: INSULIN LISPRO 100 UNIT/ML 3 ML VIAL SUBCUT PRN (21:52)
[2017-04-24] MEDS: INSULIN GLARGINE,HUM.REC.ANLOG 300 UNIT/3 ML INSULN.PEN SUBCUT SCH (21:53)
[2017-04-25 06:34] LABS: ANION GAP 11 (5-19); BLOOD UREA NITROGEN 78 mg/dL (7-20); CALCIUM 9.8 mg/dL (8.4-10.2); CARBON DIOXIDE 24 mmol/L (22-30); CHLORIDE 104 mmol/L (98-107); CREATININE RESULT 5.06 mg/dL (0.52-1.25); GLUCOSE 161 mg/dL (75-110); POTASSIUM 5.1 mmol/L (3.6-5.0); SODIUM 138.8 mmol/L (137-145)
[2017-04-25] MEDS: HEPARIN SOD (PORCINE) 5,000 UNIT/ML 1 ML SYRINGE SUBCUT SCH ×3 (06:42→21:34)
[2017-04-25] MEDS: INSULIN LISPRO 100 UNIT/ML 3 ML VIAL SUBCUT SCH ×3 (08:19→16:24)
[2017-04-25] MEDS: HYDRALAZINE HCL 50 MG TABLET PO SCH ×2 (10:48→21:33)
[2017-04-25] MEDS: CARVEDILOL 12.5 MG TABLET PO SCH ×2 (10:48→21:33)
[2017-04-25] MEDS: FAMOTIDINE 20 MG TABLET PO SCH ×2 (11:02→21:33)
[2017-04-25] MEDS: FUROSEMIDE 80 MG TABLET PO SCH ×2 (11:03→17:18)
[2017-04-25] MEDS: GABAPENTIN 300 MG CAPSULE PO SCH (11:03)
[2017-04-25] MEDS: SERTRALINE HCL 50 MG TABLET PO SCH (11:47)
--- NOTE | 2017-04-25 12:51 | PDOC PROGRESS REPORT ---
Subjective Subjective:: Complains of worsening edema. Physical Exam Vital Signs: Temp Pulse Resp BP Pulse Ox 97.8 F 65 16 161/75 H 97 04/25/17 11:26 04/25/17 11:26 04/25/17 11:26 04/25/17 11:26 04/25/17 11:26 Intake & Output 04/24/17 04/25/17 04/26/17 06:59 06:59 06:59 Intake Total 1150 1160 Output Total 1675 1300 Balance -525 -140 Weight 174.7 kg 175.3 kg General appearance: PRESENT: no acute distress Eye exam: PRESENT: conjunctiva pink. ABSENT: scleral icterus Ear exam: PRESENT: normal external ear exam Mouth exam: PRESENT: moist, tongue midline Neck exam: ABSENT: carotid bruit, JVD, lymphadenopathy, thyromegaly Respiratory exam: PRESENT: clear to auscultation eusebia. ABSENT: rales, rhonchi, wheezes Cardiovascular exam: PRESENT: RRR. ABSENT: diastolic murmur, rubs, systolic murmur GI/Abdominal exam: PRESENT: normal bowel sounds, soft. ABSENT: distended, guarding, mass, organolmegaly, rebound, tenderness Extremities exam: PRESENT: pedal edema, +1 edema, other - Right BKA. ABSENT: calf tenderness, clubbing Neurological exam: PRESENT: alert, awake, oriented to person, oriented to place , oriented to time, oriented to situation, CN II-XII grossly intact. ABSENT: motor sensory deficit Psychiatric exam: PRESENT: appropriate affect Skin exam: PRESENT: dry, intact, warm. ABSENT: cyanosis, rash Results Laboratory Results: 04/17/17 04:52 04/25/17 05:40 04/25/17 05:40 Sodium 138.8 Potassium 5.1 H Chloride 104 Carbon Dioxide 24 Anion Gap 11 BUN 78 H Creatinine 5.06 H Est GFR ( Amer) 15 L Est GFR (Non-Af Amer) 13 L Glucose 161 H Calcium 9.8 Impressions: Renal Ultrasound 04/15/17 00:00 IMPRESSION: NORMAL RENAL AND BLADDER ULTRASOUND. Chest X-Ray 04/16/17 00:00 IMPRESSION: NO ACUTE RADIOGRAPHIC FINDING IN THE CHEST. Assessment & Plan - Diagnosis (1) CKD (chronic kidney disease) Qualifiers: Chronic kidney disease stage: stage 3 (moderate) Qualified Code(s): N18.3 - Chronic kidney disease, stage 3 (moderate) Is this a current diagnosis for this admission?: YesPlan: Patient has renal failure. He reports he has had worsening edema and we will increase his Lasix dose to his usual dose of 160 mg twice daily. (2) Sciatica Qualifiers: Laterality: unspecified laterality Qualified Code(s): M54.30 - Sciatica, unspecified side Is this a current diagnosis for this admission?: YesPlan: Resolved (3) Peripheral vascular disease Is this a current diagnosis for this admission?: YesPlan: Patient has had a previous below the knee amputation on the right. (4) Obesity Qualifiers: Obesity type: unspecified obesity type Obesity severity: morbid Qualified Code(s): E66.01 - Morbid (severe) obesity due to excess calories Is this a current diagnosis for this admission?: Yes (5) Blindness Is this a current diagnosis for this admission?: Yes (6) CHF (congestive heart failure) Qualifiers: Congestive heart failure type: unspecified congestive heart failure type Congestive heart failure chronicity: acute on chronic Qualified Code(s): I50.9 - Heart failure, unspecified Is this a current diagnosis for this admission?: YesPlan: Has a history of chronic diastolic congestive heart failure. Currently euvolemic (7) HTN (hypertension) Qualifiers: Hypertension type: essential hypertension Qualified Code(s): I10 - Essential (primary) hypertension Is this a current diagnosis for this admission?: Yes (8) Neuropathy Is this a current diagnosis for this admission?: Yes (9) Constipation Is this a current diagnosis for this admission?: YesPlan: Improving - Time Time Spent with patient: 25-34 minutes - Plan Summary Plan Summary: Waiting placement in assisted living.
--- NOTE | 2017-04-25 15:57 | PSYCHOLOGICAL NOTE ---
Psych Note - Psych Note Psych Note: ERLIN DIAMOND is a 42 year old male complicated past medical history including diabetes, chronic renal failure and congestive heart failure who presents with a two-week history of nausea with intermittent vomiting. Psychiatric consult requested for depression. Patient disclosed he has been feeling depressed but denies suicidal ideation. Patient states that he has had a difficult time because she he used to be active and travels quite frequently. He stated "I used to be a fun laura." He continued to state he has been very difficult since he has gotten sick. Patient discussed his thoughts and emotions surrounding his medical diagnosis to include the results of that affecting his relationship with family and friends. Patient has slowly isolated physically however has stayed in touch through phone and Internet. Patient states his daughter is everything to him and he has recently gone through the separation with her mother. Patient disclosed he is lost vision in addition to his leg because of his medical state. Patient states that he had heard about a rehab facility that sounded great however found out today they would not take an insurance. He states "now they are going to send me to a senior living with the old people to ." Patient continued disclosed that he is only in his 40s and he is not ready to . Patient is alert and orientated to person place time and circumstance mood is dysphoric with tearful affect at times. Patient denies suicidal and homicidal ideation. Patient denies auditory visual hallucinations; patient is not demonstrating any behavior congruent to responding to internal stimuli. No delusions are noted. Thought process is organized and linear. Thought content was surrounding medical diagnosis and difficulties. Conversational speech was within normal rate tone and prosody. Eye contact was well-maintained. Intellectual abilities appear to be average to high average range. Attention and concentration are good. Insight, judgment, impulse control are fair. 311 Present F 32.9) unspecified depressive disorder Impression\\plan: Patient is psychiatrically clear for discharge. Patient denies suicidal and homicidal ideation. Patient is not demonstrating any behavior congruent to responding to internal stimuli. Patient does not meet IVC criteria per [place] GS 120 2C. 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 Dr. Hunter was consulted and the care and management of this patient; attending physician is in agreement with recommendations and disposition.
[2017-04-25] MEDS: HYDROCODONE/ACETAMINOPHEN 10-325 MG TABLET PO PRN (21:34)
[2017-04-25] MEDS: INSULIN LISPRO 100 UNIT/ML 3 ML VIAL SUBCUT PRN (21:34)
[2017-04-25] MEDS: INSULIN GLARGINE,HUM.REC.ANLOG 300 UNIT/3 ML INSULN.PEN SUBCUT SCH (21:40)
[2017-04-26 06:26] LABS: HEMATOCRIT 27.3 % (37.9-51.0); HEMOGLOBIN 9.1 g/dL (13.5-17.0); MEAN CORPUSCULAR HEMOGLOBIN 32.1 pg (27.0-33.4); MEAN CORPUSCULAR HGB CONC 33.4 g/dL (32.0-36.0); MEAN CORPUSCULAR VOLUME 96 fl (80-97); RED BLOOD COUNT 2.84 10^6/uL (4.35-5.55); RED CELL DISTRIBUTION WIDTH 13.5 % (11.5-14.0); WHITE BLOOD COUNT 8.6 10^3/uL (4.0-10.5)
[2017-04-26 06:37] LABS: ANION GAP 12 (5-19); BLOOD UREA NITROGEN 85 mg/dL (7-20); CALCIUM 9.5 mg/dL (8.4-10.2); CARBON DIOXIDE 22 mmol/L (22-30); CHLORIDE 105 mmol/L (98-107); GLUCOSE 171 mg/dL (75-110); POTASSIUM 5.3 mmol/L (3.6-5.0); SODIUM 138.9 mmol/L (137-145)
[2017-04-26] MEDS: HEPARIN SOD (PORCINE) 5,000 UNIT/ML 1 ML SYRINGE SUBCUT SCH ×3 (06:42→21:34)
[2017-04-26 07:06] LABS: BAND NEUTROPHILS % (MANUAL) 3 % (3-5); BASOPHILS % (MANUAL) 0 % (0-2); EOSINOPHILS % (MANUAL) 3 % (0-6); LYMPHOCYTES % (MANUAL) 24 % (13-45); NUCLEATED RED BLOOD CELLS 1 /100 WBC (0); RBC MORPHOLOGY COMMENT NORMO-CYTIC/CHROMIC; TOTAL CELLS COUNTED 100; TOXIC VACUOLATION PRESENT
[2017-04-26] MEDS: INSULIN LISPRO 100 UNIT/ML 3 ML VIAL SUBCUT SCH ×3 (08:10→18:30)
[2017-04-26] MEDS: INSULIN LISPRO 100 UNIT/ML 3 ML VIAL SUBCUT PRN ×4 (08:13→21:34)
[2017-04-26] MEDS: HYDRALAZINE HCL 50 MG TABLET PO SCH ×2 (09:17→21:34)
[2017-04-26] MEDS: FUROSEMIDE 80 MG TABLET PO SCH ×2 (09:18→17:16)
[2017-04-26] MEDS: FAMOTIDINE 20 MG TABLET PO SCH ×2 (09:18→21:34)
[2017-04-26] MEDS: GABAPENTIN 300 MG CAPSULE PO SCH (09:18)
[2017-04-26] MEDS: CARVEDILOL 12.5 MG TABLET PO SCH ×2 (09:19→21:34)
--- NOTE | 2017-04-26 09:37 | PDOC PROGRESS REPORT ---
Subjective Progress Note for:: 04/26/17 Subjective:: Denies any complaints Physical Exam Vital Signs: Temp Pulse Resp BP Pulse Ox 98.0 F 63 18 112/57 L 96 04/26/17 07:21 04/26/17 07:21 04/26/17 07:21 04/26/17 07:21 04/26/17 07:21 Intake & Output 04/25/17 04/26/17 04/27/17 06:59 06:59 06:59 Intake Total 1160 590 Output Total 1300 2100 Balance -140 -1510 Weight 175.3 kg 168 kg General appearance: PRESENT: no acute distress Eye exam: PRESENT: conjunctiva pink. ABSENT: scleral icterus Mouth exam: PRESENT: moist, tongue midline Neck exam: ABSENT: JVD Respiratory exam: PRESENT: clear to auscultation eusebia. ABSENT: rales, rhonchi, wheezes Cardiovascular exam: PRESENT: RRR. ABSENT: diastolic murmur, rubs, systolic murmur GI/Abdominal exam: PRESENT: normal bowel sounds, soft. ABSENT: distended, guarding, mass, organolmegaly, rebound, tenderness Extremities exam: PRESENT: other - Status post right BKA. ABSENT: calf tenderness, clubbing, pedal edema Neurological exam: PRESENT: alert, awake, oriented to person, oriented to place , oriented to time, oriented to situation, CN II-XII grossly intact. ABSENT: motor sensory deficit Psychiatric exam: PRESENT: appropriate affect Skin exam: PRESENT: dry, intact, warm. ABSENT: cyanosis, rash Results Laboratory Results: 04/26/17 05:47 04/26/17 05:47 04/26/17 04/26/17 05:47 05:47 WBC 8.6 RBC 2.84 L Hgb 9.1 L Hct 27.3 L MCV 96 MCH 32.1 MCHC 33.4 RDW 13.5 Plt Count 201 Seg Neutrophils % Not Reportable Lymphocytes % Not Reportable Monocytes % Not Reportable Eosinophils % Not Reportable Basophils % Not Reportable Absolute Neutrophils Not Reportable Absolute Lymphocytes Not Reportable Absolute Monocytes Not Reportable Absolute Eosinophils Not Reportable Absolute Basophils Not Reportable Sodium 138.9 Potassium 5.3 H Chloride 105 Carbon Dioxide 22 Anion Gap 12 BUN 85 H Creatinine 5.10 H Est GFR ( Amer) 15 L Est GFR (Non-Af Amer) 13 L Glucose 171 H Calcium 9.5 Impressions: Renal Ultrasound 04/15/17 00:00 IMPRESSION: NORMAL RENAL AND BLADDER ULTRASOUND. Chest X-Ray 04/16/17 00:00 IMPRESSION: NO ACUTE RADIOGRAPHIC FINDING IN THE CHEST. Assessment & Plan - Diagnosis (1) CKD (chronic kidney disease) Qualifiers: Chronic kidney disease stage: stage 3 (moderate) Qualified Code(s): N18.3 - Chronic kidney disease, stage 3 (moderate) Is this a current diagnosis for this admission?: YesPlan: Patient has renal failure. We will continue with his Lasix dose of 160 mg twice daily. (2) Sciatica Qualifiers: Laterality: unspecified laterality Qualified Code(s): M54.30 - Sciatica, unspecified side Is this a current diagnosis for this admission?: YesPlan: Resolved (3) Peripheral vascular disease Is this a current diagnosis for this admission?: YesPlan: Patient has had a previous below the knee amputation on the right. (4) Obesity Qualifiers: Obesity type: unspecified obesity type Obesity severity: morbid Qualified Code(s): E66.01 - Morbid (severe) obesity due to excess calories Is this a current diagnosis for this admission?: Yes (5) Blindness Is this a current diagnosis for this admission?: Yes (6) CHF (congestive heart failure) Qualifiers: Congestive heart failure type: unspecified congestive heart failure type Congestive heart failure chronicity: acute on chronic Qualified Code(s): I50.9 - Heart failure, unspecified Is this a current diagnosis for this admission?: YesPlan: Has a history of chronic diastolic congestive heart failure. Currently euvolemic (7) HTN (hypertension) Qualifiers: Hypertension type: essential hypertension Qualified Code(s): I10 - Essential (primary) hypertension Is this a current diagnosis for this admission?: Yes (8) Neuropathy Is this a current diagnosis for this admission?: Yes (9) Constipation Is this a current diagnosis for this admission?: YesPlan: Resolved. - Time Time Spent with patient: 25-34 minutes - Plan Summary Plan Summary: Waiting for a assisted living bed to become available.
[2017-04-26] MEDS: SERTRALINE HCL 50 MG TABLET PO SCH (11:50)
[2017-04-26] MEDS: INSULIN GLARGINE,HUM.REC.ANLOG 300 UNIT/3 ML INSULN.PEN SUBCUT SCH (21:34)
[2017-04-26] MEDS: HYDROCODONE/ACETAMINOPHEN 10-325 MG TABLET PO PRN (21:40)
[2017-04-27] MEDS: HEPARIN SOD (PORCINE) 5,000 UNIT/ML 1 ML SYRINGE SUBCUT SCH ×3 (06:01→21:16)
[2017-04-27] MEDS: INSULIN LISPRO 100 UNIT/ML 3 ML VIAL SUBCUT SCH ×3 (08:10→17:37)
[2017-04-27] MEDS: GABAPENTIN 300 MG CAPSULE PO SCH (09:03)
[2017-04-27] MEDS: FUROSEMIDE 80 MG TABLET PO SCH ×2 (09:03→17:35)
[2017-04-27] MEDS: FAMOTIDINE 20 MG TABLET PO SCH ×2 (09:03→21:16)
[2017-04-27] MEDS: HYDRALAZINE HCL 50 MG TABLET PO SCH ×2 (09:04→21:16)
[2017-04-27] MEDS: CARVEDILOL 12.5 MG TABLET PO SCH ×2 (09:04→21:16)
[2017-04-27] MEDS: INSULIN LISPRO 100 UNIT/ML 3 ML VIAL SUBCUT PRN (12:39)
[2017-04-27] MEDS: SERTRALINE HCL 50 MG TABLET PO SCH (12:42)
[2017-04-27] MEDS: POLYETHYLENE GLYCOL 3350 POWDER 17 GM/1 PACKET PO PRN (17:35)
--- NOTE | 2017-04-27 18:39 | PDOC PROGRESS REPORT ---
Subjective Progress Note for:: 04/27/17 - ] Subjective:: Denies any complaints Physical Exam Vital Signs: Temp Pulse Resp BP Pulse Ox 98.2 F 67 16 113/49 L 97 04/27/17 15:54 04/27/17 15:54 04/27/17 15:54 04/27/17 15:54 04/27/17 15:54 Intake & Output 04/26/17 04/27/17 04/28/17 06:59 06:59 06:59 Intake Total 590 720 480 Output Total 2100 2050 800 Balance -1510 -1330 -320 Weight 168 kg 169.9 kg General appearance: PRESENT: no acute distress Eye exam: PRESENT: conjunctiva pink. ABSENT: scleral icterus Mouth exam: PRESENT: moist, tongue midline Neck exam: ABSENT: JVD Respiratory exam: PRESENT: clear to auscultation eusebia. ABSENT: rales, rhonchi, wheezes Cardiovascular exam: PRESENT: RRR. ABSENT: diastolic murmur, rubs, systolic murmur Results Laboratory Results: 04/26/17 05:47 04/26/17 05:47 Impressions: Renal Ultrasound 04/15/17 00:00 IMPRESSION: NORMAL RENAL AND BLADDER ULTRASOUND. Chest X-Ray 04/16/17 00:00 IMPRESSION: NO ACUTE RADIOGRAPHIC FINDING IN THE CHEST. Assessment & Plan - Diagnosis (1) CKD (chronic kidney disease) Qualifiers: Chronic kidney disease stage: stage 3 (moderate) Qualified Code(s): N18.3 - Chronic kidney disease, stage 3 (moderate) Is this a current diagnosis for this admission?: YesPlan: Patient has renal failure. We will continue with his Lasix dose of 160 mg twice daily. (2) Sciatica Qualifiers: Laterality: unspecified laterality Qualified Code(s): M54.30 - Sciatica, unspecified side Is this a current diagnosis for this admission?: YesPlan: Resolved (3) Peripheral vascular disease Is this a current diagnosis for this admission?: YesPlan: Patient has had a previous below the knee amputation on the right. (4) Obesity Qualifiers: Obesity type: unspecified obesity type Obesity severity: morbid Qualified Code(s): E66.01 - Morbid (severe) obesity due to excess calories Is this a current diagnosis for this admission?: Yes (5) Blindness Is this a current diagnosis for this admission?: Yes (6) CHF (congestive heart failure) Qualifiers: Congestive heart failure type: unspecified congestive heart failure type Congestive heart failure chronicity: acute on chronic Qualified Code(s): I50.9 - Heart failure, unspecified Is this a current diagnosis for this admission?: YesPlan: Has a history of chronic diastolic congestive heart failure. Currently euvolemic (7) HTN (hypertension) Qualifiers: Hypertension type: essential hypertension Qualified Code(s): I10 - Essential (primary) hypertension Is this a current diagnosis for this admission?: Yes (8) Neuropathy Is this a current diagnosis for this admission?: Yes (9) Constipation Is this a current diagnosis for this admission?: YesPlan: Resolved. - Time Time Spent with patient: Less than 15 minutes - Plan Summary Plan Summary: awaiting placement
[2017-04-27] MEDS: HYDROCODONE/ACETAMINOPHEN 10-325 MG TABLET PO PRN (18:45)
[2017-04-27] MEDS: INSULIN GLARGINE,HUM.REC.ANLOG 300 UNIT/3 ML INSULN.PEN SUBCUT SCH (21:16)
[2017-04-28] MEDS: HEPARIN SOD (PORCINE) 5,000 UNIT/ML 1 ML SYRINGE SUBCUT SCH ×3 (05:59→21:34)
[2017-04-28] MEDS: INSULIN LISPRO 100 UNIT/ML 3 ML VIAL SUBCUT SCH ×3 (08:54→17:34)
[2017-04-28] MEDS: GABAPENTIN 300 MG CAPSULE PO SCH (10:03)
[2017-04-28] MEDS: CARVEDILOL 12.5 MG TABLET PO SCH ×2 (10:03→21:33)
[2017-04-28] MEDS: FAMOTIDINE 20 MG TABLET PO SCH ×2 (10:03→21:34)
[2017-04-28] MEDS: FUROSEMIDE 80 MG TABLET PO SCH ×2 (10:03→17:32)
[2017-04-28] MEDS: HYDRALAZINE HCL 50 MG TABLET PO SCH ×2 (10:03→21:34)
[2017-04-28] MEDS: SERTRALINE HCL 50 MG TABLET PO SCH (11:55)
--- NOTE | 2017-04-28 14:04 | PDOC PROGRESS REPORT ---
Subjective Progress Note for:: 04/28/17 Subjective:: Denies any complaints Physical Exam Vital Signs: Temp Pulse Resp BP Pulse Ox 98.1 F 61 18 135/76 H 99 04/28/17 12:00 04/28/17 12:00 04/28/17 12:00 04/28/17 12:00 04/28/17 12:00 Intake & Output 04/27/17 04/28/17 04/29/17 06:59 06:59 06:59 Intake Total 720 820 Output Total 2050 1700 Balance -1330 -880 Weight 169.9 kg 170.5 kg General appearance: PRESENT: no acute distress Eye exam: PRESENT: conjunctiva pink. ABSENT: scleral icterus Ear exam: PRESENT: normal external ear exam Mouth exam: PRESENT: moist, tongue midline Neck exam: ABSENT: carotid bruit, JVD, lymphadenopathy, thyromegaly Respiratory exam: PRESENT: clear to auscultation eusebia. ABSENT: rales, rhonchi, wheezes Cardiovascular exam: PRESENT: RRR. ABSENT: diastolic murmur, rubs, systolic murmur GI/Abdominal exam: PRESENT: normal bowel sounds, soft. ABSENT: distended, guarding, mass, organolmegaly, rebound, tenderness Extremities exam: PRESENT: other - Patient is status post right BKA. ABSENT: calf tenderness, clubbing, pedal edema Neurological exam: PRESENT: alert, awake, oriented to person, oriented to place , oriented to time, oriented to situation, CN II-XII grossly intact. ABSENT: motor sensory deficit Psychiatric exam: PRESENT: appropriate affect Skin exam: PRESENT: dry, intact, warm. ABSENT: cyanosis, rash Results Laboratory Results: 04/26/17 05:47 04/26/17 05:47 Impressions: Renal Ultrasound 04/15/17 00:00 IMPRESSION: NORMAL RENAL AND BLADDER ULTRASOUND. Chest X-Ray 04/16/17 00:00 IMPRESSION: NO ACUTE RADIOGRAPHIC FINDING IN THE CHEST. Assessment & Plan - Diagnosis (1) CKD (chronic kidney disease) Qualifiers: Chronic kidney disease stage: stage 3 (moderate) Qualified Code(s): N18.3 - Chronic kidney disease, stage 3 (moderate) Is this a current diagnosis for this admission?: YesPlan: Was admitted with acute on chronic renal failure. The patient has been seen by nephrology during his hospitalization. We will continue with his Lasix dose of 160 mg twice daily. (2) Sciatica Qualifiers: Laterality: unspecified laterality Qualified Code(s): M54.30 - Sciatica, unspecified side Is this a current diagnosis for this admission?: YesPlan: Resolved (3) Peripheral vascular disease Is this a current diagnosis for this admission?: YesPlan: Patient has had a previous below the knee amputation on the right. (4) Obesity Qualifiers: Obesity type: unspecified obesity type Obesity severity: morbid Qualified Code(s): E66.01 - Morbid (severe) obesity due to excess calories Is this a current diagnosis for this admission?: Yes (5) Blindness Is this a current diagnosis for this admission?: Yes (6) CHF (congestive heart failure) Qualifiers: Congestive heart failure type: unspecified congestive heart failure type Congestive heart failure chronicity: acute on chronic Qualified Code(s): I50.9 - Heart failure, unspecified Is this a current diagnosis for this admission?: YesPlan: Has a history of chronic diastolic congestive heart failure. Currently euvolemic (7) HTN (hypertension) Qualifiers: Hypertension type: essential hypertension Qualified Code(s): I10 - Essential (primary) hypertension Is this a current diagnosis for this admission?: Yes (8) Neuropathy Is this a current diagnosis for this admission?: Yes (9) Constipation Is this a current diagnosis for this admission?: YesPlan: Resolved. - Time Time Spent with patient: 25-34 minutes - Plan Summary Plan Summary: Admitted with acute on chronic renal failure. Patient is ready for discharge however he has no place to go. His girlfriend he used to live with will not take him back. We are attempting to get him to rehab as he would like to start using the prosthesis he has for his right BKA.
[2017-04-28] MEDS: INSULIN LISPRO 100 UNIT/ML 3 ML VIAL SUBCUT PRN (21:34)
[2017-04-28] MEDS: INSULIN GLARGINE,HUM.REC.ANLOG 300 UNIT/3 ML INSULN.PEN SUBCUT SCH (21:34)
[2017-04-29] MEDS: HEPARIN SOD (PORCINE) 5,000 UNIT/ML 1 ML SYRINGE SUBCUT SCH ×3 (05:38→21:50)
[2017-04-29 06:43] LABS: ANION GAP 13 (5-19); BLOOD UREA NITROGEN 78 mg/dL (7-20); CALCIUM 9.1 mg/dL (8.4-10.2); CARBON DIOXIDE 23 mmol/L (22-30); CHLORIDE 103 mmol/L (98-107); CREATININE RESULT 5.56 mg/dL (0.52-1.25); GLUCOSE 170 mg/dL (75-110); SODIUM 139.2 mmol/L (137-145)
[2017-04-29 07:07] LABS: HEMOGLOBIN 9.3 g/dL (13.5-17.0); HGB HCT DIFFERENCE -0.1; MEAN CORPUSCULAR HEMOGLOBIN 32.2 pg (27.0-33.4); MEAN CORPUSCULAR HGB CONC 33.3 g/dL (32.0-36.0); MEAN CORPUSCULAR VOLUME 97 fl (80-97); RED BLOOD COUNT 2.89 10^6/uL (4.35-5.55); WHITE BLOOD COUNT 9.2 10^3/uL (4.0-10.5)
[2017-04-29 07:27] LABS: BAND NEUTROPHILS % (MANUAL) 4 % (3-5); BASOPHILS % (MANUAL) 0 % (0-2); EOSINOPHILS % (MANUAL) 1 % (0-6); LYMPHOCYTES % (MANUAL) 15 % (13-45); TOTAL CELLS COUNTED 100
[2017-04-29 07:29] LABS: HYPOCHROMASIA SLIGHT; POLYCHROMASIA SLIGHT; TOXIC GRANULATION SLIGHT
[2017-04-29] MEDS: HYDRALAZINE HCL 50 MG TABLET PO SCH ×2 (09:17→21:50)
[2017-04-29] MEDS: INSULIN LISPRO 100 UNIT/ML 3 ML VIAL SUBCUT SCH ×3 (09:17→16:42)
[2017-04-29] MEDS: GABAPENTIN 300 MG CAPSULE PO SCH (09:17)
[2017-04-29] MEDS: FUROSEMIDE 80 MG TABLET PO SCH (09:17)
[2017-04-29] MEDS: FAMOTIDINE 20 MG TABLET PO SCH ×2 (09:17→21:50)
[2017-04-29] MEDS: CARVEDILOL 12.5 MG TABLET PO SCH ×2 (09:18→21:50)
[2017-04-29] MEDS ORDERED: FUROSEMIDE 80 MG TABLET PO SCH (11:16)
--- NOTE | 2017-04-29 11:27 | PDOC PROGRESS REPORT ---
Subjective Progress Note for:: 04/29/17 Subjective:: Patient voiced no complaints. No reported temperature spikes respiratory distress, nausea or vomiting. Patient is debilitated and weak. Starting to use his lower extremity prosthesis. Rehabilitation services recommended acute rehabilitation. Creatinine started to increase. Physical Exam Vital Signs: Temp Pulse Resp BP Pulse Ox 98.0 F 61 12 109/53 L 96 04/29/17 07:51 04/29/17 07:51 04/29/17 07:51 04/29/17 07:51 04/29/17 07:51 Intake & Output 04/28/17 04/29/17 04/30/17 06:59 06:59 06:59 Intake Total 820 1150 Output Total 1700 1750 Balance -880 -600 Weight 170.5 kg 170.5 kg General appearance: PRESENT: no acute distress, morbidly obese Head exam: PRESENT: normocephalic Eye exam: PRESENT: conjunctiva pale Mouth exam: PRESENT: moist, neck supple Neck exam: ABSENT: JVD Respiratory exam: PRESENT: clear to auscultation eusebia Cardiovascular exam: PRESENT: RRR. ABSENT: gallop GI/Abdominal exam: PRESENT: normal bowel sounds, soft. ABSENT: distended - Obese Extremities exam: PRESENT: other - BKA on the right, trace edema on the left. Neurological exam: PRESENT: alert, awake, oriented to situation Skin exam: PRESENT: dry, warm. ABSENT: cyanosis Results Laboratory Results: 04/29/17 05:42 04/29/17 05:42 04/29/17 04/29/17 05:42 05:42 WBC 9.2 RBC 2.89 L Hgb 9.3 L Hct 28.0 L MCV 97 MCH 32.2 MCHC 33.3 RDW 14.0 Plt Count 220 Seg Neutrophils % Not Reportable Lymphocytes % Not Reportable Monocytes % Not Reportable Eosinophils % Not Reportable Basophils % Not Reportable Absolute Neutrophils Not Reportable Absolute Lymphocytes Not Reportable Absolute Monocytes Not Reportable Absolute Eosinophils Not Reportable Absolute Basophils Not Reportable Sodium 139.2 Potassium 5.0 Chloride 103 Carbon Dioxide 23 Anion Gap 13 BUN 78 H Creatinine 5.56 H Est GFR ( Amer) 14 L Est GFR (Non-Af Amer) 11 L Glucose 170 H Calcium 9.1 Impressions: Renal Ultrasound 04/15/17 00:00 IMPRESSION: NORMAL RENAL AND BLADDER ULTRASOUND. Chest X-Ray 04/16/17 00:00 IMPRESSION: NO ACUTE RADIOGRAPHIC FINDING IN THE CHEST. Assessment & Plan - Diagnosis (1) DEREK (acute kidney injury) Is this a current diagnosis for this admission?: Yes (2) Situational depression Is this a current diagnosis for this admission?: Yes (3) Diarrhea Qualifiers: Diarrhea type: unspecified type Qualified Code(s): R19.7 - Diarrhea , unspecified Is this a current diagnosis for this admission?: Yes (4) Sciatica Qualifiers: Laterality: unspecified laterality Qualified Code(s): M54.30 - Sciatica, unspecified side Is this a current diagnosis for this admission?: Yes (5) HTN (hypertension) Qualifiers: Hypertension type: essential hypertension Qualified Code(s): I10 - Essential (primary) hypertension Is this a current diagnosis for this admission?: Yes (6) Anemia Qualifiers: Anemia type: unspecified type Qualified Code(s): D64.9 - Anemia, unspecified Is this a current diagnosis for this admission?: Yes (7) Obesity Qualifiers: Obesity type: unspecified obesity type Obesity severity: morbid Qualified Code(s): E66.01 - Morbid (severe) obesity due to excess calories Is this a current diagnosis for this admission?: Yes (8) Peripheral vascular disease Is this a current diagnosis for this admission?: Yes (9) CHF (congestive heart failure) Qualifiers: Congestive heart failure type: unspecified congestive heart failure type Congestive heart failure chronicity: acute on chronic Qualified Code(s): I50.9 - Heart failure, unspecified Is this a current diagnosis for this admission?: Yes (10) Neuropathy Is this a current diagnosis for this admission?: Yes (11) Diabetes mellitus type 1 with hyperosmolarity Qualifiers: Diabetes mellitus complication detail: without coma Qualified Code(s ): E10.69 - Type 1 diabetes mellitus with other specified complication; E10.65 - Type 1 diabetes mellitus with hyperglycemia (12) Hyperlipidemia Qualifiers: Hyperlipidemia type: unspecified Qualified Code(s): E78.5 - Hyperlipidemia, unspecified Is this a current diagnosis for this admission?: Yes (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 Discontinue intravenous fluid. Decrease Lasix dose to half. Recheck creatinine in the morning. Continue supportive care. Awaiting rehabilitation.
[2017-04-29 12:14] LABS: PATH REVIEW PATHOLOGIST REVIEWED
[2017-04-29] MEDS: SERTRALINE HCL 50 MG TABLET PO SCH (13:17)
[2017-04-29] MEDS: HYDROCODONE/ACETAMINOPHEN 10-325 MG TABLET PO PRN (18:31)
[2017-04-29] MEDS: INSULIN LISPRO 100 UNIT/ML 3 ML VIAL SUBCUT PRN (21:50)
[2017-04-29] MEDS: INSULIN GLARGINE,HUM.REC.ANLOG 300 UNIT/3 ML INSULN.PEN SUBCUT SCH (21:50)
[2017-04-30] MEDS: HEPARIN SOD (PORCINE) 5,000 UNIT/ML 1 ML SYRINGE SUBCUT SCH ×3 (06:05→22:13)
[2017-04-30 06:17] LABS: ANION GAP 13 (5-19); BLOOD UREA NITROGEN 80 mg/dL (7-20); CARBON DIOXIDE 23 mmol/L (22-30); CHLORIDE 103 mmol/L (98-107); CREATININE RESULT 5.98 mg/dL (0.52-1.25); GLUCOSE 171 mg/dL (75-110); SODIUM 138.8 mmol/L (137-145)
[2017-04-30] MEDS: INSULIN LISPRO 100 UNIT/ML 3 ML VIAL SUBCUT SCH ×3 (08:00→18:02)
--- NOTE | 2017-04-30 10:45 | PDOC PROGRESS REPORT ---
Subjective Progress Note for:: 04/30/17 Subjective:: Patient voiced no complaints. No reported temperature spikes respiratory distress, nausea or vomiting. Starting to use his lower extremity prosthesis. Rehabilitation services recommended acute rehabilitation. Creatinine continues to increase. Patient denies any diarrhea, dizziness, lightheadedness. Physical Exam Vital Signs: Temp Pulse Resp BP Pulse Ox 97.6 F 62 12 128/59 H 96 04/30/17 08:09 04/30/17 08:09 04/30/17 08:09 04/30/17 08:09 04/30/17 08:09 Intake & Output 04/29/17 04/30/17 05/01/17 06:59 06:59 06:59 Intake Total 1150 2057 Output Total 1750 2049 Balance -600 8 Weight 170.5 kg 170.2 kg General appearance: PRESENT: no acute distress, obese Head exam: PRESENT: normocephalic Eye exam: PRESENT: conjunctiva pink, EOMI Mouth exam: PRESENT: moist, neck supple Neck exam: ABSENT: JVD Respiratory exam: PRESENT: clear to auscultation eusebia Cardiovascular exam: PRESENT: RRR. ABSENT: gallop GI/Abdominal exam: PRESENT: soft. ABSENT: distended, tenderness Extremities exam: PRESENT: other - Trace edema on the left. Below knee amputation on the right. Neurological exam: PRESENT: alert, awake, oriented to situation Skin exam: PRESENT: dry, warm. ABSENT: cyanosis Results Laboratory Results: 04/29/17 05:42 04/30/17 05:27 04/29/17 04/30/17 05:42 05:27 WBC 9.2 RBC 2.89 L Hgb 9.3 L Hct 28.0 L MCV 97 MCH 32.2 MCHC 33.3 RDW 14.0 Plt Count 220 Sodium 138.8 Potassium 5.0 Chloride 103 Carbon Dioxide 23 Anion Gap 13 BUN 80 H Creatinine 5.98 H Est GFR ( Amer) 13 L Est GFR (Non-Af Amer) 11 L Glucose 171 H Calcium 9.0 Impressions: Renal Ultrasound 04/15/17 00:00 IMPRESSION: NORMAL RENAL AND BLADDER ULTRASOUND. Chest X-Ray 04/16/17 00:00 IMPRESSION: NO ACUTE RADIOGRAPHIC FINDING IN THE CHEST. Assessment & Plan - Diagnosis (1) DEREK (acute kidney injury) Is this a current diagnosis for this admission?: Yes (2) Situational depression Is this a current diagnosis for this admission?: Yes (3) Diarrhea Qualifiers: Diarrhea type: unspecified type Qualified Code(s): R19.7 - Diarrhea , unspecified Is this a current diagnosis for this admission?: Yes (4) Sciatica Qualifiers: Laterality: unspecified laterality Qualified Code(s): M54.30 - Sciatica, unspecified side Is this a current diagnosis for this admission?: Yes (5) HTN (hypertension) Qualifiers: Hypertension type: essential hypertension Qualified Code(s): I10 - Essential (primary) hypertension Is this a current diagnosis for this admission?: Yes (6) Anemia Qualifiers: Anemia type: unspecified type Qualified Code(s): D64.9 - Anemia, unspecified Is this a current diagnosis for this admission?: Yes (7) Obesity Qualifiers: Obesity type: unspecified obesity type Obesity severity: morbid Qualified Code(s): E66.01 - Morbid (severe) obesity due to excess calories Is this a current diagnosis for this admission?: Yes (8) Peripheral vascular disease Is this a current diagnosis for this admission?: Yes (9) CHF (congestive heart failure) Qualifiers: Congestive heart failure type: unspecified congestive heart failure type Congestive heart failure chronicity: acute on chronic Qualified Code(s): I50.9 - Heart failure, unspecified Is this a current diagnosis for this admission?: Yes (10) Neuropathy Is this a current diagnosis for this admission?: Yes (11) Diabetes mellitus type 1 with hyperosmolarity Qualifiers: Diabetes mellitus complication detail: without coma Qualified Code(s ): E10.69 - Type 1 diabetes mellitus with other specified complication; E10.65 - Type 1 diabetes mellitus with hyperglycemia (12) Hyperlipidemia Qualifiers: Hyperlipidemia type: unspecified Qualified Code(s): E78.5 - Hyperlipidemia, unspecified Is this a current diagnosis for this admission?: Yes (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 Patient has been educated about his concern regarding edema and his renal failure. I have explained to him the plan to hold the Lasix for now until creatinine stabilizes and at that time we can resume it at a lower dose. I encouraged him to increase his fluid intake. He has refused intravenous fluids. Awaiting rehabilitation.
[2017-04-30] MEDS: CARVEDILOL 12.5 MG TABLET PO SCH ×2 (11:46→22:13)
[2017-04-30] MEDS: HYDRALAZINE HCL 50 MG TABLET PO SCH ×2 (11:46→22:13)
[2017-04-30] MEDS: SERTRALINE HCL 50 MG TABLET PO SCH (11:46)
[2017-04-30] MEDS: GABAPENTIN 300 MG CAPSULE PO SCH (11:46)
[2017-04-30] MEDS: FAMOTIDINE 20 MG TABLET PO SCH ×2 (11:47→22:13)
--- NOTE | 2017-04-30 16:41 | PDOC PROGRESS REPORT ---
Subjective Progress Note for:: 04/30/17 Subjective:: Seen today. He is waiting for placement. He denies any history of chest pain shortness of breath. No history of nausea vomiting. Labs were reviewed with the patient which is showing creeping creatinine.Patient also complains of difficulty to urinate. No history of dysuria fever chills. Physical Exam Vital Signs: Temp Pulse Resp BP Pulse Ox 97.6 F 62 12 128/59 H 96 04/30/17 08:09 04/30/17 08:09 04/30/17 08:09 04/30/17 08:09 04/30/17 08:09 Intake & Output 04/29/17 04/30/17 05/01/17 06:59 06:59 06:59 Intake Total 1150 8 Output Total 1750 0 Balance -600 8 Weight 170.5 kg 170.2 kg General appearance: PRESENT: no acute distress Respiratory exam: PRESENT: clear to auscultation eusebia. ABSENT: crackles, rhonchi Cardiovascular exam: PRESENT: +S1, +S2, systolic murmur GI/Abdominal exam: PRESENT: normal bowel sounds, soft. ABSENT: diminished bowel sounds, distended, guarding, organomegaly, tenderness Extremities exam: PRESENT: pedal edema Neurological exam: PRESENT: alert, awake, oriented to person, oriented to place , oriented to time Results Laboratory Results: 04/29/17 05:42 04/30/17 05:27 04/30/17 05:27 Sodium 138.8 Potassium 5.0 Chloride 103 Carbon Dioxide 23 Anion Gap 13 BUN 80 H Creatinine 5.98 H Est GFR ( Amer) 13 L Est GFR (Non-Af Amer) 11 L Glucose 171 H Calcium 9.0 Impressions: Renal Ultrasound 04/15/17 00:00 IMPRESSION: NORMAL RENAL AND BLADDER ULTRASOUND. Chest X-Ray 04/16/17 00:00 IMPRESSION: NO ACUTE RADIOGRAPHIC FINDING IN THE CHEST. Assessment & Plan - Diagnosis (1) DEREK (acute kidney injury) Is this a current diagnosis for this admission?: YesPlan: Patient showing creeping creatinine with early fluid overload.Agree with holding off on the Lasix and IV fluids for the moment. Might need to be started on Lasix at a low dose in the ensuing 2 days depending on labs. (2) Blindness Is this a current diagnosis for this admission?: Yes (3) Obesity Qualifiers: Obesity type: unspecified obesity type Obesity severity: morbid Qualified Code(s): E66.01 - Morbid (severe) obesity due to excess calories Is this a current diagnosis for this admission?: Yes (4) Peripheral vascular disease Is this a current diagnosis for this admission?: Yes (5) Sciatica Qualifiers: Laterality: unspecified laterality Qualified Code(s): M54.30 - Sciatica, unspecified side Is this a current diagnosis for this admission?: Yes (6) HTN (hypertension) Qualifiers: Hypertension type: essential hypertension Qualified Code(s): I10 - Essential (primary) hypertension Is this a current diagnosis for this admission?: YesPlan: Well-controlled (7) Chronic kidney disease, stage IV (severe) Plan: Acute worsening. Monitor. No indications for renal replacements. (8) Anemia Qualifiers: Anemia type: unspecified type Qualified Code(s): D64.9 - Anemia, unspecified Is this a current diagnosis for this admission?: YesPlan: Stable. On erythropoietin. (9) Proteinuria due to type 2 diabetes mellitus Plan: Monitor. Advised tight control.
[2017-04-30] MEDS: EPOETIN ALFA INJ 20000 UNIT/1 ML VIAL (RENAL) SUBCUT SCH (18:46)
[2017-04-30] MEDS: INSULIN GLARGINE,HUM.REC.ANLOG 300 UNIT/3 ML INSULN.PEN SUBCUT SCH (22:13)
[2017-04-30] MEDS: INSULIN LISPRO 100 UNIT/ML 3 ML VIAL SUBCUT PRN (22:14)
[2017-05-01] MEDS: HEPARIN SOD (PORCINE) 5,000 UNIT/ML 1 ML SYRINGE SUBCUT SCH ×3 (05:19→22:43)
[2017-05-01 07:08] LABS: ANION GAP 14 (5-19); BLOOD UREA NITROGEN 78 mg/dL (7-20); CALCIUM 8.7 mg/dL (8.4-10.2); CARBON DIOXIDE 22 mmol/L (22-30); CHLORIDE 103 mmol/L (98-107); CREATININE RESULT 5.56 mg/dL (0.52-1.25); GLUCOSE 176 mg/dL (75-110); SODIUM 139.1 mmol/L (137-145)
[2017-05-01] MEDS: INSULIN LISPRO 100 UNIT/ML 3 ML VIAL SUBCUT SCH ×3 (08:04→15:58)
[2017-05-01] MEDS: INSULIN LISPRO 100 UNIT/ML 3 ML VIAL SUBCUT PRN (08:04)
[2017-05-01] MEDS: CARVEDILOL 12.5 MG TABLET PO SCH ×2 (09:37→22:43)
[2017-05-01] MEDS: HYDRALAZINE HCL 50 MG TABLET PO SCH ×2 (09:38→22:43)
[2017-05-01] MEDS: FAMOTIDINE 20 MG TABLET PO SCH ×2 (09:39→22:43)
[2017-05-01] MEDS: GABAPENTIN 300 MG CAPSULE PO SCH (09:39)
--- NOTE | 2017-05-01 10:45 | PDOC PROGRESS REPORT ---
Subjective Progress Note for:: 05/01/17 Subjective:: Denies any shortness of breath chills or fever. No abdominal pain nausea or vomiting. No chest pain or shortness of breath. Voiding freely. No PND orthopnea, no increasing lower extremity edema. Physical Exam Vital Signs: Temp Pulse Resp BP Pulse Ox 98.1 F 69 16 113/69 95 05/01/17 00:00 05/01/17 00:00 05/01/17 00:00 05/01/17 00:00 05/01/17 00:00 Intake & Output 04/30/17 05/01/17 05/02/17 06:59 06:59 06:59 Intake Total 2057 1000 Output Total 2049 2299 Balance 8 -1300 Weight 170.2 kg 169.8 kg General appearance: PRESENT: no acute distress, cooperative, morbidly obese Head exam: PRESENT: normocephalic Eye exam: PRESENT: conjunctiva pale Mouth exam: PRESENT: moist, neck supple Neck exam: ABSENT: JVD Respiratory exam: PRESENT: clear to auscultation eusebia Cardiovascular exam: PRESENT: RRR. ABSENT: gallop GI/Abdominal exam: PRESENT: hypoactive bowel sounds, soft. 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 ABSENT: cyanosis Results Laboratory Results: 04/29/17 05:42 05/01/17 06:21 05/01/17 06:21 Sodium 139.1 Potassium 5.0 Chloride 103 Carbon Dioxide 22 Anion Gap 14 BUN 78 H Creatinine 5.56 H Est GFR ( Amer) 14 L Est GFR (Non-Af Amer) 11 L Glucose 176 H Calcium 8.7 Impressions: Renal Ultrasound 04/15/17 00:00 IMPRESSION: NORMAL RENAL AND BLADDER ULTRASOUND. Chest X-Ray 04/16/17 00:00 IMPRESSION: NO ACUTE RADIOGRAPHIC FINDING IN THE CHEST. Assessment & Plan - Diagnosis (1) DEREK (acute kidney injury) Is this a current diagnosis for this admission?: Yes (2) Situational depression Is this a current diagnosis for this admission?: Yes (3) Diarrhea Qualifiers: Diarrhea type: unspecified type Qualified Code(s): R19.7 - Diarrhea , unspecified Is this a current diagnosis for this admission?: Yes (4) Sciatica Qualifiers: Laterality: unspecified laterality Qualified Code(s): M54.30 - Sciatica, unspecified side Is this a current diagnosis for this admission?: Yes (5) HTN (hypertension) Qualifiers: Hypertension type: essential hypertension Qualified Code(s): I10 - Essential (primary) hypertension Is this a current diagnosis for this admission?: Yes (6) Anemia Qualifiers: Anemia type: unspecified type Qualified Code(s): D64.9 - Anemia, unspecified Is this a current diagnosis for this admission?: Yes (7) Obesity Qualifiers: Obesity type: unspecified obesity type Obesity severity: morbid Qualified Code(s): E66.01 - Morbid (severe) obesity due to excess calories Is this a current diagnosis for this admission?: Yes (8) Peripheral vascular disease Is this a current diagnosis for this admission?: Yes (9) CHF (congestive heart failure) Qualifiers: Congestive heart failure type: unspecified congestive heart failure type Congestive heart failure chronicity: acute on chronic Qualified Code(s): I50.9 - Heart failure, unspecified Is this a current diagnosis for this admission?: Yes (10) Neuropathy Is this a current diagnosis for this admission?: Yes (11) Diabetes mellitus type 1 with hyperosmolarity Qualifiers: Diabetes mellitus complication detail: without coma Qualified Code(s ): E10.69 - Type 1 diabetes mellitus with other specified complication; E10.65 - Type 1 diabetes mellitus with hyperglycemia (12) Hyperlipidemia Qualifiers: Hyperlipidemia type: unspecified Qualified Code(s): E78.5 - Hyperlipidemia, unspecified Is this a current diagnosis for this admission?: Yes (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 Recheck creatinine in the morning if it continues to trend down we will resume at 40 mg daily of Lasix. In the meantime awaiting acute rehabilitation bed.
[2017-05-01] MEDS: SERTRALINE HCL 50 MG TABLET PO SCH (13:58)
[2017-05-01] MEDS: INSULIN GLARGINE,HUM.REC.ANLOG 300 UNIT/3 ML INSULN.PEN SUBCUT SCH (22:43)
[2017-05-02 05:07] LABS: ANION GAP 12 (5-19); BLOOD UREA NITROGEN 74 mg/dL (7-20); CALCIUM 8.5 mg/dL (8.4-10.2); CARBON DIOXIDE 22 mmol/L (22-30); CHLORIDE 103 mmol/L (98-107); CREATININE RESULT 5.48 mg/dL (0.52-1.25); GLUCOSE 116 mg/dL (75-110); POTASSIUM 4.8 mmol/L (3.6-5.0); SODIUM 137.3 mmol/L (137-145)
[2017-05-02] MEDS: HEPARIN SOD (PORCINE) 5,000 UNIT/ML 1 ML SYRINGE SUBCUT SCH ×3 (05:46→23:51)
[2017-05-02] MEDS: INSULIN LISPRO 100 UNIT/ML 3 ML VIAL SUBCUT SCH ×3 (08:26→17:35)
[2017-05-02] MEDS: HYDRALAZINE HCL 50 MG TABLET PO SCH ×2 (09:52→23:51)
[2017-05-02] MEDS: FAMOTIDINE 20 MG TABLET PO SCH ×2 (09:52→23:51)
[2017-05-02] MEDS: GABAPENTIN 300 MG CAPSULE PO SCH (09:52)
[2017-05-02] MEDS: CARVEDILOL 12.5 MG TABLET PO SCH ×2 (09:53→23:50)
--- NOTE | 2017-05-02 10:59 | PDOC PROGRESS REPORT ---
Subjective Progress Note for:: 05/02/17 Subjective:: Denies any shortness of breath chills or fever. No abdominal pain nausea or vomiting. No chest pain or shortness of breath. No PND orthopnea, no increasing lower extremity edema. Family at bedside. Physical Exam Vital Signs: Temp Pulse Resp BP Pulse Ox 98.5 F 63 22 H 117/57 L 95 05/02/17 07:46 05/02/17 07:46 05/02/17 07:46 05/02/17 07:46 05/02/17 07:46 Intake & Output 05/01/17 05/02/17 05/03/17 06:59 06:59 06:59 Intake Total 1000 450 Output Total 2300 350 Balance -1300 100 Weight 169.8 kg 168.5 kg General appearance: PRESENT: no acute distress, cooperative, morbidly obese Head exam: PRESENT: normocephalic Mouth exam: PRESENT: moist, neck supple Neck exam: ABSENT: JVD Respiratory exam: PRESENT: clear to auscultation eusebia. ABSENT: rhonchi, wheezes Cardiovascular exam: PRESENT: RRR. ABSENT: gallop GI/Abdominal exam: PRESENT: soft. ABSENT: distended - obese Extremities exam: PRESENT: pedal edema - Left, other - bka R Neurological exam: PRESENT: alert, awake, oriented to situation Results Laboratory Results: 04/29/17 05:42 05/02/17 04:29 05/02/17 04:29 Sodium 137.3 Potassium 4.8 Chloride 103 Carbon Dioxide 22 Anion Gap 12 BUN 74 H Creatinine 5.48 H Est GFR ( Amer) 14 L Est GFR (Non-Af Amer) 12 L Glucose 116 H Calcium 8.5 Impressions: Renal Ultrasound 04/15/17 00:00 IMPRESSION: NORMAL RENAL AND BLADDER ULTRASOUND. Chest X-Ray 04/16/17 00:00 IMPRESSION: NO ACUTE RADIOGRAPHIC FINDING IN THE CHEST. Assessment & Plan - Diagnosis (1) DEREK (acute kidney injury) Is this a current diagnosis for this admission?: Yes (2) Situational depression Is this a current diagnosis for this admission?: Yes (3) Diarrhea Qualifiers: Diarrhea type: unspecified type Qualified Code(s): R19.7 - Diarrhea , unspecified Is this a current diagnosis for this admission?: Yes (4) Sciatica Qualifiers: Laterality: unspecified laterality Qualified Code(s): M54.30 - Sciatica, unspecified side Is this a current diagnosis for this admission?: Yes (5) HTN (hypertension) Qualifiers: Hypertension type: essential hypertension Qualified Code(s): I10 - Essential (primary) hypertension Is this a current diagnosis for this admission?: Yes (6) Anemia Qualifiers: Anemia type: unspecified type Qualified Code(s): D64.9 - Anemia, unspecified Is this a current diagnosis for this admission?: Yes (7) Obesity Qualifiers: Obesity type: unspecified obesity type Obesity severity: morbid Qualified Code(s): E66.01 - Morbid (severe) obesity due to excess calories Is this a current diagnosis for this admission?: Yes (8) Peripheral vascular disease Is this a current diagnosis for this admission?: Yes (9) CHF (congestive heart failure) Qualifiers: Congestive heart failure type: unspecified congestive heart failure type Congestive heart failure chronicity: acute on chronic Qualified Code(s): I50.9 - Heart failure, unspecified Is this a current diagnosis for this admission?: Yes (10) Neuropathy Is this a current diagnosis for this admission?: Yes (11) Diabetes mellitus type 1 with hyperosmolarity Qualifiers: Diabetes mellitus complication detail: without coma Qualified Code(s ): E10.69 - Type 1 diabetes mellitus with other specified complication; E10.65 - Type 1 diabetes mellitus with hyperglycemia (12) Hyperlipidemia Qualifiers: Hyperlipidemia type: unspecified Qualified Code(s): E78.5 - Hyperlipidemia, unspecified Is this a current diagnosis for this admission?: Yes (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 Cont to minitor creatinine. Awaiting rehabilitation bed.
[2017-05-02] MEDS: SERTRALINE HCL 50 MG TABLET PO SCH (11:32)
[2017-05-02] MEDS: INSULIN GLARGINE,HUM.REC.ANLOG 300 UNIT/3 ML INSULN.PEN SUBCUT SCH (23:52)
[2017-05-03] MEDS: HEPARIN SOD (PORCINE) 5,000 UNIT/ML 1 ML SYRINGE SUBCUT SCH ×3 (07:51→23:52)
[2017-05-03] MEDS: INSULIN LISPRO 100 UNIT/ML 3 ML VIAL SUBCUT SCH ×3 (08:46→16:30)
[2017-05-03] MEDS: INSULIN LISPRO 100 UNIT/ML 3 ML VIAL SUBCUT PRN ×2 (08:47→11:32)
--- NOTE | 2017-05-03 09:28 | PDOC PROGRESS REPORT ---
Subjective Progress Note for:: 05/03/17 Subjective:: Patient voices no complaints. No chills or fever, no shortness of breath or chest pain. Voiding freely. Patient report that after program planner and he is girlfriend had a conversation regarding discharge plans after rehabilitation, she agreed that he can return back in her place but only after the patient had rehabilitation at the facility. Physical Exam Vital Signs: Temp Pulse Resp BP Pulse Ox 97.7 F 62 12 130/64 H 98 05/03/17 07:48 05/03/17 07:48 05/03/17 07:48 05/03/17 07:48 05/03/17 07:48 Intake & Output 05/02/17 05/03/17 05/04/17 06:59 06:59 06:59 Intake Total 450 890 Output Total 350 1150 Balance 100 -260 Weight 168.5 kg 168.5 kg General appearance: PRESENT: no acute distress, morbidly obese Head exam: PRESENT: normocephalic Eye exam: PRESENT: EOMI Mouth exam: PRESENT: moist, neck supple Respiratory exam: PRESENT: clear to auscultation eusebia Cardiovascular exam: PRESENT: RRR GI/Abdominal exam: PRESENT: distended - Obese, soft. ABSENT: tenderness Extremities exam: PRESENT: other - Trace edema on the left Neurological exam: PRESENT: alert, awake, oriented to situation Skin exam: PRESENT: dry, warm. ABSENT: cyanosis Results Laboratory Results: 04/29/17 05:42 05/02/17 04:29 Impressions: Renal Ultrasound 04/15/17 00:00 IMPRESSION: NORMAL RENAL AND BLADDER ULTRASOUND. Chest X-Ray 04/16/17 00:00 IMPRESSION: NO ACUTE RADIOGRAPHIC FINDING IN THE CHEST. Assessment & Plan - Diagnosis (1) DEREK (acute kidney injury) Is this a current diagnosis for this admission?: Yes (2) Situational depression Is this a current diagnosis for this admission?: Yes (3) Diarrhea Qualifiers: Diarrhea type: unspecified type Qualified Code(s): R19.7 - Diarrhea , unspecified Is this a current diagnosis for this admission?: Yes (4) Sciatica Qualifiers: Laterality: unspecified laterality Qualified Code(s): M54.30 - Sciatica, unspecified side Is this a current diagnosis for this admission?: Yes (5) HTN (hypertension) Qualifiers: Hypertension type: essential hypertension Qualified Code(s): I10 - Essential (primary) hypertension Is this a current diagnosis for this admission?: Yes (6) Anemia Qualifiers: Anemia type: unspecified type Qualified Code(s): D64.9 - Anemia, unspecified Is this a current diagnosis for this admission?: Yes (7) Obesity Qualifiers: Obesity type: unspecified obesity type Obesity severity: morbid Qualified Code(s): E66.01 - Morbid (severe) obesity due to excess calories Is this a current diagnosis for this admission?: Yes (8) Peripheral vascular disease Is this a current diagnosis for this admission?: Yes (9) CHF (congestive heart failure) Qualifiers: Congestive heart failure type: unspecified congestive heart failure type Congestive heart failure chronicity: acute on chronic Qualified Code(s): I50.9 - Heart failure, unspecified Is this a current diagnosis for this admission?: Yes (10) Neuropathy Is this a current diagnosis for this admission?: Yes (11) Diabetes mellitus type 1 with hyperosmolarity Qualifiers: Diabetes mellitus complication detail: without coma Qualified Code(s ): E10.69 - Type 1 diabetes mellitus with other specified complication; E10.65 - Type 1 diabetes mellitus with hyperglycemia (12) Hyperlipidemia Qualifiers: Hyperlipidemia type: unspecified Qualified Code(s): E78.5 - Hyperlipidemia, unspecified Is this a current diagnosis for this admission?: Yes (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 Recheck creatinine in the morning. Awaiting rehabilitation bed.
[2017-05-03] MEDS: CARVEDILOL 12.5 MG TABLET PO SCH ×2 (10:00→23:41)
[2017-05-03] MEDS: HYDRALAZINE HCL 50 MG TABLET PO SCH ×2 (10:03→23:52)
[2017-05-03] MEDS: FUROSEMIDE 40 MG TABLET PO SCH (10:04)
[2017-05-03] MEDS: FAMOTIDINE 20 MG TABLET PO SCH ×2 (10:04→23:52)
[2017-05-03] MEDS: GABAPENTIN 300 MG CAPSULE PO SCH (10:04)
[2017-05-03] MEDS: SERTRALINE HCL 50 MG TABLET PO SCH (11:32)
[2017-05-03] MEDS: HYDROCODONE/ACETAMINOPHEN 10-325 MG TABLET PO PRN (17:33)
[2017-05-03] MEDS: INSULIN GLARGINE,HUM.REC.ANLOG 300 UNIT/3 ML INSULN.PEN SUBCUT SCH (23:52)
[2017-05-04 06:37] LABS: ANION GAP 10 (5-19); BLOOD UREA NITROGEN 66 mg/dL (7-20); CARBON DIOXIDE 23 mmol/L (22-30); CHLORIDE 105 mmol/L (98-107); GLUCOSE 147 mg/dL (75-110); POTASSIUM 4.9 mmol/L (3.6-5.0); SODIUM 138.2 mmol/L (137-145)
[2017-05-04] MEDS: HEPARIN SOD (PORCINE) 5,000 UNIT/ML 1 ML SYRINGE SUBCUT SCH ×3 (06:48→21:45)
[2017-05-04] MEDS: INSULIN LISPRO 100 UNIT/ML 3 ML VIAL SUBCUT SCH ×3 (09:04→19:47)
[2017-05-04] MEDS: FAMOTIDINE 20 MG TABLET PO SCH ×2 (09:05→21:45)
[2017-05-04] MEDS: HYDRALAZINE HCL 50 MG TABLET PO SCH ×2 (09:05→21:45)
[2017-05-04] MEDS: FUROSEMIDE 40 MG TABLET PO SCH ×2 (09:05→19:48)
[2017-05-04] MEDS: GABAPENTIN 300 MG CAPSULE PO SCH (09:07)
[2017-05-04] MEDS: CARVEDILOL 12.5 MG TABLET PO SCH ×2 (09:07→21:45)
[2017-05-04] MEDS: POLYETHYLENE GLYCOL 3350 POWDER 17 GM/1 PACKET PO PRN (09:25)
[2017-05-04] MEDS ORDERED: FUROSEMIDE 40 MG TABLET PO ONE (11:15)
[2017-05-04] MEDS: SERTRALINE HCL 50 MG TABLET PO SCH (11:58)
[2017-05-04] MEDS: INSULIN LISPRO 100 UNIT/ML 3 ML VIAL SUBCUT PRN ×2 (11:58→21:45)
[2017-05-04] MEDS: HYDROCODONE/ACETAMINOPHEN 10-325 MG TABLET PO PRN (14:13)
--- NOTE | 2017-05-04 15:17 | RADIOLOGY REPORT (SQ) ---
EXAM DESCRIPTION: CHEST SINGLE VIEW COMPLETED DATE/TIME: 05/04/2017 2:50 pm REASON FOR STUDY: SOB COMPARISON: 04/16/2017 EXAM PARAMETERS: NUMBER OF VIEWS: One view. TECHNIQUE: Single frontal radiographic view of the chest acquired. RADIATION DOSE: NA LIMITATIONS: None. FINDINGS: LUNGS AND PLEURA: No opacities, masses or pneumothorax. No pleural effusion. MEDIASTINUM AND HILAR STRUCTURES: No masses. Contour normal. HEART AND VASCULAR STRUCTURES: Heart normal in size. Normal vasculature. BONES: No acute findings. HARDWARE: None in the chest. OTHER: No other significant finding. IMPRESSION: NO ACUTE RADIOGRAPHIC FINDING IN THE CHEST. TECHNICAL DOCUMENTATION: JOB ID: [id number]
[2017-05-04] MEDS: INSULIN GLARGINE,HUM.REC.ANLOG 300 UNIT/3 ML INSULN.PEN SUBCUT SCH (21:44)
[2017-05-05] MEDS: HEPARIN SOD (PORCINE) 5,000 UNIT/ML 1 ML SYRINGE SUBCUT SCH ×3 (05:32→21:25)
[2017-05-05 07:11] LABS: ANION GAP 12 (5-19); BLOOD UREA NITROGEN 64 mg/dL (7-20); CALCIUM 8.3 mg/dL (8.4-10.2); CARBON DIOXIDE 22 mmol/L (22-30); CHLORIDE 105 mmol/L (98-107); CREATININE RESULT 5.31 mg/dL (0.52-1.25); GLUCOSE 108 mg/dL (75-110); POTASSIUM 5.2 mmol/L (3.6-5.0); SODIUM 139.4 mmol/L (137-145)
[2017-05-05] MEDS: INSULIN LISPRO 100 UNIT/ML 3 ML VIAL SUBCUT SCH ×3 (08:06→18:01)
[2017-05-05] MEDS: HYDRALAZINE HCL 50 MG TABLET PO SCH (09:30)
[2017-05-05] MEDS: FUROSEMIDE 40 MG TABLET PO SCH (09:31)
[2017-05-05] MEDS: CARVEDILOL 12.5 MG TABLET PO SCH (09:31)
[2017-05-05] MEDS: GABAPENTIN 300 MG CAPSULE PO SCH (09:31)
[2017-05-05] MEDS: FAMOTIDINE 20 MG TABLET PO SCH ×2 (09:31→21:26)
[2017-05-05] MEDS: POLYETHYLENE GLYCOL 3350 POWDER 17 GM/1 PACKET PO PRN (09:33)
[2017-05-05] MEDS ORDERED: FUROSEMIDE 40 MG TABLET PO SCH (10:56)
--- NOTE | 2017-05-05 11:03 | PDOC PROGRESS REPORT ---
Subjective Progress Note for:: 05/05/17 Subjective:: Patient is adamant about his Lasix at 160 mg twice a day. Patient tries to decrease oral intake of fluids due to lower dose of Lasix. No reported respiratory distress, temperature spikes, PND orthopnea. No chest pain or shortness of breath. No nausea or vomiting. Physical Exam Vital Signs: Temp Pulse Resp BP Pulse Ox 97.7 F 53 L 16 146/67 H 99 05/05/17 07:00 05/05/17 07:00 05/05/17 07:00 05/05/17 07:00 05/05/17 07:00 Intake & Output 05/04/17 05/05/17 05/06/17 06:59 06:59 06:59 Intake Total 740 690 Output Total 1250 0 Balance -510 690 Weight 167.9 kg 169 kg General appearance: PRESENT: no acute distress, morbidly obese Head exam: PRESENT: normocephalic Eye exam: PRESENT: conjunctiva pale Mouth exam: PRESENT: moist, neck supple Neck exam: ABSENT: JVD Respiratory exam: PRESENT: clear to auscultation eusebia - Anteriorly. ABSENT: wheezes Cardiovascular exam: PRESENT: RRR. ABSENT: gallop GI/Abdominal exam: PRESENT: distended, soft - Obese. 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 Chest X-Ray 05/04/17 00:00 IMPRESSION: NO ACUTE RADIOGRAPHIC FINDING IN THE CHEST. Assessment & Plan - Diagnosis (1) DEREK (acute kidney injury) Is this a current diagnosis for this admission?: Yes (2) Situational depression Is this a current diagnosis for this admission?: Yes (3) Diarrhea Qualifiers: Diarrhea type: unspecified type Qualified Code(s): R19.7 - Diarrhea , unspecified Is this a current diagnosis for this admission?: Yes (4) Sciatica Qualifiers: Laterality: unspecified laterality Qualified Code(s): M54.30 - Sciatica, unspecified side Is this a current diagnosis for this admission?: Yes (5) HTN (hypertension) Qualifiers: Hypertension type: essential hypertension Qualified Code(s): I10 - Essential (primary) hypertension Is this a current diagnosis for this admission?: Yes (6) Anemia Qualifiers: Anemia type: unspecified type Qualified Code(s): D64.9 - Anemia, unspecified Is this a current diagnosis for this admission?: Yes (7) Obesity Qualifiers: Obesity type: unspecified obesity type Obesity severity: morbid Qualified Code(s): E66.01 - Morbid (severe) obesity due to excess calories Is this a current diagnosis for this admission?: Yes (8) Peripheral vascular disease Is this a current diagnosis for this admission?: Yes (9) CHF (congestive heart failure) Qualifiers: Congestive heart failure type: unspecified congestive heart failure type Congestive heart failure chronicity: acute on chronic Qualified Code(s): I50.9 - Heart failure, unspecified Is this a current diagnosis for this admission?: Yes (10) Neuropathy Is this a current diagnosis for this admission?: Yes (11) Diabetes mellitus type 1 with hyperosmolarity Qualifiers: Diabetes mellitus complication detail: without coma Qualified Code(s ): E10.69 - Type 1 diabetes mellitus with other specified complication; E10.65 - Type 1 diabetes mellitus with hyperglycemia (12) Hyperlipidemia Qualifiers: Hyperlipidemia type: unspecified Qualified Code(s): E78.5 - Hyperlipidemia, unspecified Is this a current diagnosis for this admission?: Yes (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 He agreed to try 80 mg of Lasix twice a day which I told him not to cut off his fluid intake as well. He is agreeable with the plan. He was girlfriend agreed to take him home once cleared by a rehabilitation facility. Rehabilitation facility reluctant to take him initially here to discharge plans after completion of therapy. systems planner was informed that the patient's girlfriend is willing to take him home only after he completed acute PT.
[2017-05-05] MEDS: SERTRALINE HCL 50 MG TABLET PO SCH (11:46)
[2017-05-05] MEDS: INSULIN LISPRO 100 UNIT/ML 3 ML VIAL SUBCUT PRN (11:50)
[2017-05-05] MEDS: FUROSEMIDE 80 MG TABLET PO SCH (18:01)
[2017-05-05] MEDS: INSULIN GLARGINE,HUM.REC.ANLOG 300 UNIT/3 ML INSULN.PEN SUBCUT SCH (22:28)
[2017-05-06] MEDS: HYDRALAZINE HCL 50 MG TABLET PO SCH ×3 (02:01→21:25)
[2017-05-06] MEDS: CARVEDILOL 12.5 MG TABLET PO SCH ×3 (02:01→21:25)
[2017-05-06] MEDS: HEPARIN SOD (PORCINE) 5,000 UNIT/ML 1 ML SYRINGE SUBCUT SCH ×3 (05:27→21:26)
[2017-05-06 06:39] LABS: ANION GAP 12 (5-19); BLOOD UREA NITROGEN 62 mg/dL (7-20); CALCIUM 8.1 mg/dL (8.4-10.2); CARBON DIOXIDE 22 mmol/L (22-30); CHLORIDE 105 mmol/L (98-107); CREATININE RESULT 5.05 mg/dL (0.52-1.25); GLUCOSE 127 mg/dL (75-110); POTASSIUM 5.3 mmol/L (3.6-5.0); SODIUM 139.3 mmol/L (137-145)
[2017-05-06] MEDS: INSULIN LISPRO 100 UNIT/ML 3 ML VIAL SUBCUT PRN ×2 (08:36→12:47)
[2017-05-06] MEDS: INSULIN LISPRO 100 UNIT/ML 3 ML VIAL SUBCUT SCH ×3 (08:36→17:24)
[2017-05-06] MEDS: GABAPENTIN 300 MG CAPSULE PO SCH (11:03)
[2017-05-06] MEDS: FUROSEMIDE 80 MG TABLET PO SCH ×2 (11:05→17:24)
[2017-05-06] MEDS: FAMOTIDINE 20 MG TABLET PO SCH ×2 (11:05→21:25)
--- NOTE | 2017-05-06 12:27 | PDOC PROGRESS REPORT ---
Subjective Progress Note for:: 05/06/17 Subjective:: Denies any complaints Physical Exam Vital Signs: Temp Pulse Resp BP Pulse Ox 97.5 F 62 16 138/59 H 99 05/06/17 08:28 05/06/17 08:28 05/06/17 08:28 05/06/17 08:28 05/06/17 08:28 Intake & Output 05/05/17 05/06/17 05/07/17 06:59 06:59 06:59 Intake Total 690 990 Output Total 0 5 Balance 690 -1035 Weight 169 kg 170.6 kg General appearance: PRESENT: no acute distress Eye exam: PRESENT: conjunctiva pink. ABSENT: scleral icterus Mouth exam: PRESENT: moist, tongue midline Neck exam: ABSENT: JVD Respiratory exam: PRESENT: clear to auscultation eusebia. ABSENT: rales, rhonchi, wheezes Cardiovascular exam: PRESENT: RRR. ABSENT: diastolic murmur, rubs, systolic murmur GI/Abdominal exam: PRESENT: normal bowel sounds, soft. ABSENT: distended, guarding, mass, organolmegaly, rebound, tenderness Extremities exam: PRESENT: other - Right BKA. ABSENT: calf tenderness, clubbing , pedal edema Neurological exam: PRESENT: alert, awake, oriented to person, oriented to place , oriented to time, oriented to situation, CN II-XII grossly intact. ABSENT: motor sensory deficit Psychiatric exam: PRESENT: appropriate affect Skin exam: PRESENT: dry, intact, warm. ABSENT: cyanosis, rash Results Laboratory Results: 04/29/17 05:42 05/06/17 05:52 05/06/17 05:52 Sodium 139.3 Potassium 5.3 H Chloride 105 Carbon Dioxide 22 Anion Gap 12 BUN 62 H Creatinine 5.05 H Est GFR ( Amer) 15 L Est GFR (Non-Af Amer) 13 L Glucose 127 H Calcium 8.1 L Impressions: Renal Ultrasound 04/15/17 00:00 IMPRESSION: NORMAL RENAL AND BLADDER ULTRASOUND. Chest X-Ray 05/04/17 00:00 IMPRESSION: NO ACUTE RADIOGRAPHIC FINDING IN THE CHEST. Assessment & Plan - Diagnosis (1) CKD (chronic kidney disease) Qualifiers: Chronic kidney disease stage: stage 3 (moderate) Qualified Code(s): N18.3 - Chronic kidney disease, stage 3 (moderate) Is this a current diagnosis for this admission?: YesPlan: Was admitted with acute on chronic renal failure. The patient has been seen by nephrology during his hospitalization. Continue with Venkatesh (2) Sciatica Qualifiers: Laterality: unspecified laterality Qualified Code(s): M54.30 - Sciatica, unspecified side Is this a current diagnosis for this admission?: YesPlan: Resolved (3) Peripheral vascular disease Is this a current diagnosis for this admission?: YesPlan: Patient has had a previous below the knee amputation on the right. (4) Obesity Qualifiers: Obesity type: unspecified obesity type Obesity severity: morbid Qualified Code(s): E66.01 - Morbid (severe) obesity due to excess calories Is this a current diagnosis for this admission?: Yes (5) Blindness Is this a current diagnosis for this admission?: Yes (6) CHF (congestive heart failure) Qualifiers: Congestive heart failure type: unspecified congestive heart failure type Congestive heart failure chronicity: acute on chronic Qualified Code(s): I50.9 - Heart failure, unspecified Is this a current diagnosis for this admission?: YesPlan: Has a history of chronic diastolic congestive heart failure. Currently euvolemic (7) HTN (hypertension) Qualifiers: Hypertension type: essential hypertension Qualified Code(s): I10 - Essential (primary) hypertension Is this a current diagnosis for this admission?: Yes (8) Neuropathy Is this a current diagnosis for this admission?: Yes (9) Constipation Is this a current diagnosis for this admission?: YesPlan: Resolved. - Time Time Spent with patient: 15-24 minutes - Inpatient Certification Medical Necessity: Need Close Monitoring Due to Risk of Patient Decompensation - Plan Summary Plan Summary: Awaiting rehabilitation bed.
[2017-05-06] MEDS: SERTRALINE HCL 50 MG TABLET PO SCH (12:47)
[2017-05-06] MEDS ORDERED: INSULIN GLARGINE,HUM.REC.ANLOG 1,000 UNIT/10 ML UNIT SUBCUT ONE (21:19)
[2017-05-06] MEDS: INSULIN GLARGINE,HUM.REC.ANLOG 300 UNIT/3 ML INSULN.PEN SUBCUT SCH (21:26)
[2017-05-07] MEDS: HEPARIN SOD (PORCINE) 5,000 UNIT/ML 1 ML SYRINGE SUBCUT SCH ×3 (05:32→21:58)
[2017-05-07] MEDS: INSULIN LISPRO 100 UNIT/ML 3 ML VIAL SUBCUT SCH ×3 (10:14→16:55)
[2017-05-07] MEDS: CARVEDILOL 12.5 MG TABLET PO SCH ×2 (10:20→21:58)
[2017-05-07] MEDS: FUROSEMIDE 80 MG TABLET PO SCH ×2 (10:20→18:10)
[2017-05-07] MEDS: FAMOTIDINE 20 MG TABLET PO SCH ×2 (10:20→21:58)
[2017-05-07] MEDS: HYDRALAZINE HCL 50 MG TABLET PO SCH ×2 (10:20→21:58)
[2017-05-07] MEDS: GABAPENTIN 300 MG CAPSULE PO SCH (10:20)
--- NOTE | 2017-05-07 12:04 | PDOC PROGRESS REPORT ---
Subjective Progress Note for:: 05/07/17 Subjective:: Denies any complaints Physical Exam Vital Signs: Temp Pulse Resp BP Pulse Ox 97.7 F 63 16 135/53 H 99 05/07/17 07:31 05/07/17 07:31 05/07/17 07:31 05/07/17 07:31 05/07/17 07:31 Intake & Output 05/06/17 05/07/17 05/08/17 06:59 06:59 06:59 Intake Total 990 790 Output Total 2024 1450 Balance -1035 -660 Weight 170.6 kg 170.6 kg General appearance: PRESENT: no acute distress Eye exam: PRESENT: conjunctiva pink. ABSENT: scleral icterus Mouth exam: PRESENT: moist, tongue midline Neck exam: ABSENT: JVD Respiratory exam: PRESENT: clear to auscultation eusebia. ABSENT: rales, rhonchi, wheezes Cardiovascular exam: PRESENT: RRR. ABSENT: diastolic murmur, rubs, systolic murmur GI/Abdominal exam: PRESENT: normal bowel sounds, soft. ABSENT: distended, guarding, mass, organolmegaly, rebound, tenderness Extremities exam: PRESENT: other - Right BKA. ABSENT: calf tenderness, clubbing , pedal edema Neurological exam: PRESENT: alert, awake, oriented to person, oriented to place , oriented to time, oriented to situation, CN II-XII grossly intact. ABSENT: motor sensory deficit Psychiatric exam: PRESENT: appropriate affect Skin exam: PRESENT: dry, intact, warm. ABSENT: cyanosis, rash Results Laboratory Results: 04/29/17 05:42 05/06/17 05:52 Impressions: Renal Ultrasound 04/15/17 00:00 IMPRESSION: NORMAL RENAL AND BLADDER ULTRASOUND. Chest X-Ray 05/04/17 00:00 IMPRESSION: NO ACUTE RADIOGRAPHIC FINDING IN THE CHEST. Assessment & Plan - Diagnosis (1) CKD (chronic kidney disease) Qualifiers: Chronic kidney disease stage: stage 3 (moderate) Qualified Code(s): N18.3 - Chronic kidney disease, stage 3 (moderate) Is this a current diagnosis for this admission?: YesPlan: Was admitted with acute on chronic renal failure. The patient has been seen by nephrology during his hospitalization. Continue with Lasix (2) Sciatica Qualifiers: Laterality: unspecified laterality Qualified Code(s): M54.30 - Sciatica, unspecified side Is this a current diagnosis for this admission?: YesPlan: Resolved (3) Peripheral vascular disease Is this a current diagnosis for this admission?: YesPlan: Patient has had a previous below the knee amputation on the right. (4) Obesity Qualifiers: Obesity type: unspecified obesity type Obesity severity: morbid Qualified Code(s): E66.01 - Morbid (severe) obesity due to excess calories Is this a current diagnosis for this admission?: Yes (5) Blindness Is this a current diagnosis for this admission?: Yes (6) CHF (congestive heart failure) Qualifiers: Congestive heart failure type: unspecified congestive heart failure type Congestive heart failure chronicity: acute on chronic Qualified Code(s): I50.9 - Heart failure, unspecified Is this a current diagnosis for this admission?: YesPlan: Has a history of chronic diastolic congestive heart failure. Currently euvolemic (7) HTN (hypertension) Qualifiers: Hypertension type: essential hypertension Qualified Code(s): I10 - Essential (primary) hypertension Is this a current diagnosis for this admission?: Yes (8) Neuropathy Is this a current diagnosis for this admission?: Yes (9) Constipation Is this a current diagnosis for this admission?: YesPlan: Resolved. - Time Time Spent with patient: 25-34 minutes - Plan Summary Plan Summary: Awaiting placement in rehab.
[2017-05-07] MEDS: SERTRALINE HCL 50 MG TABLET PO SCH (12:43)
[2017-05-07] MEDS: EPOETIN ALFA INJ 20000 UNIT/1 ML VIAL (RENAL) SUBCUT SCH (18:10)
[2017-05-07] MEDS: INSULIN GLARGINE,HUM.REC.ANLOG 300 UNIT/3 ML INSULN.PEN SUBCUT SCH (21:58)
[2017-05-08] MEDS ORDERED: DIPHENHYDRAMINE HCL 25 MG/10 ML UDC PO ONE (01:30)
[2017-05-08] MEDS: HEPARIN SOD (PORCINE) 5,000 UNIT/ML 1 ML SYRINGE SUBCUT SCH ×3 (05:48→21:49)
[2017-05-08 06:05] LABS: ABSOLUTE EOSINOPHILS # (AUTO) 0.3 10^3/uL (0.0-0.6); ABSOLUTE LYMPHOCYTES (AUTO) 2.2 10^3/uL (0.5-4.7); ABSOLUTE MONOCYTES (AUTO) 0.8 10^3/uL (0.1-1.4); ABSOLUTE NEUT (AUTO) 5.3 10^3/uL (1.7-8.2); BASOPHILS % (AUTO) 0.5 % (0-2); EOSINOPHILS % (AUTO) 3.3 % (0-6); HEMATOCRIT 29.1 % (37.9-51.0); HEMOGLOBIN 9.5 g/dL (13.5-17.0); HGB HCT DIFFERENCE -0.6; LYMPHOCYTES % (AUTO) 25.5 % (13-45); MEAN CORPUSCULAR HEMOGLOBIN 31.8 pg (27.0-33.4); MEAN CORPUSCULAR HGB CONC 32.5 g/dL (32.0-36.0); MEAN CORPUSCULAR VOLUME 98 fl (80-97); MONOCYTES % (AUTO) 9.1 % (3-13); RED BLOOD COUNT 2.97 10^6/uL (4.35-5.55); RED CELL DISTRIBUTION WIDTH 14.4 % (11.5-14.0); SEGMENTED NEUTROPHILS % (AUTO) 61.6 % (42-78); WHITE BLOOD COUNT 8.6 10^3/uL (4.0-10.5)
[2017-05-08 06:18] LABS: ANION GAP 11 (5-19); BLOOD UREA NITROGEN 63 mg/dL (7-20); CALCIUM 8.2 mg/dL (8.4-10.2); CARBON DIOXIDE 25 mmol/L (22-30); CHLORIDE 105 mmol/L (98-107); CREATININE RESULT 5.45 mg/dL (0.52-1.25); GLUCOSE 133 mg/dL (75-110); POTASSIUM 5.4 mmol/L (3.6-5.0); SODIUM 140.8 mmol/L (137-145)
[2017-05-08] MEDS: INSULIN LISPRO 100 UNIT/ML 3 ML VIAL SUBCUT SCH ×3 (08:42→17:48)
[2017-05-08] MEDS: INSULIN LISPRO 100 UNIT/ML 3 ML VIAL SUBCUT PRN ×2 (08:43→12:47)
--- NOTE | 2017-05-08 10:32 | PDOC PROGRESS REPORT ---
Subjective Progress Note for:: 05/08/17 Subjective:: Denies any complaints Physical Exam Vital Signs: Temp Pulse Resp BP Pulse Ox 98.6 F 60 17 158/66 H 98 05/07/17 21:01 05/07/17 21:01 05/07/17 21:01 05/07/17 21:01 05/07/17 21:01 Intake & Output 05/07/17 05/08/17 05/09/17 06:59 06:59 06:59 Intake Total 790 1870 Output Total 1450 1500 Balance -660 370 Weight 170.6 kg 170.6 kg General appearance: PRESENT: no acute distress Eye exam: PRESENT: conjunctiva pink. ABSENT: scleral icterus Mouth exam: PRESENT: moist, tongue midline Neck exam: ABSENT: JVD Respiratory exam: PRESENT: clear to auscultation eusebia. ABSENT: rales, rhonchi, wheezes Cardiovascular exam: PRESENT: RRR. ABSENT: diastolic murmur, rubs, systolic murmur GI/Abdominal exam: PRESENT: normal bowel sounds, soft. ABSENT: distended, guarding, mass, organolmegaly, rebound, tenderness Extremities exam: PRESENT: other - Right BKA. ABSENT: calf tenderness, clubbing , pedal edema Neurological exam: PRESENT: alert, awake, oriented to person, oriented to place , oriented to time, oriented to situation, CN II-XII grossly intact. ABSENT: motor sensory deficit Psychiatric exam: PRESENT: appropriate affect Skin exam: PRESENT: dry, intact, warm. ABSENT: cyanosis, rash Results Laboratory Results: 05/08/17 05:12 05/08/17 05:12 05/08/17 05/08/17 05:12 05:12 WBC 8.6 RBC 2.97 L Hgb 9.5 L Hct 29.1 L MCV 98 H MCH 31.8 MCHC 32.5 RDW 14.4 H Plt Count 281 Seg Neutrophils % 61.6 Lymphocytes % 25.5 Monocytes % 9.1 Eosinophils % 3.3 Basophils % 0.5 Absolute Neutrophils 5.3 Absolute Lymphocytes 2.2 Absolute Monocytes 0.8 Absolute Eosinophils 0.3 Absolute Basophils 0.0 Sodium 140.8 Potassium 5.4 H Chloride 105 Carbon Dioxide 25 Anion Gap 11 BUN 63 H Creatinine 5.45 H Est GFR ( Amer) 14 L Est GFR (Non-Af Amer) 12 L Glucose 133 H Calcium 8.2 L Impressions: Renal Ultrasound 04/15/17 00:00 IMPRESSION: NORMAL RENAL AND BLADDER ULTRASOUND. Chest X-Ray 05/04/17 00:00 IMPRESSION: NO ACUTE RADIOGRAPHIC FINDING IN THE CHEST. Assessment & Plan - Diagnosis (1) CKD (chronic kidney disease) Qualifiers: Chronic kidney disease stage: stage 3 (moderate) Qualified Code(s): N18.3 - Chronic kidney disease, stage 3 (moderate) Is this a current diagnosis for this admission?: YesPlan: Was admitted with acute on chronic renal failure. The patient has been seen by nephrology during his hospitalization. Continue with Lasix (2) Sciatica Qualifiers: Laterality: unspecified laterality Qualified Code(s): M54.30 - Sciatica, unspecified side Is this a current diagnosis for this admission?: YesPlan: Resolved (3) Peripheral vascular disease Is this a current diagnosis for this admission?: YesPlan: Patient has had a previous below the knee amputation on the right. (4) Obesity Qualifiers: Obesity type: unspecified obesity type Obesity severity: morbid Qualified Code(s): E66.01 - Morbid (severe) obesity due to excess calories Is this a current diagnosis for this admission?: Yes (5) Blindness Is this a current diagnosis for this admission?: Yes (6) CHF (congestive heart failure) Qualifiers: Congestive heart failure type: unspecified congestive heart failure type Congestive heart failure chronicity: acute on chronic Qualified Code(s): I50.9 - Heart failure, unspecified Is this a current diagnosis for this admission?: YesPlan: Has a history of chronic diastolic congestive heart failure. Currently euvolemic (7) HTN (hypertension) Qualifiers: Hypertension type: essential hypertension Qualified Code(s): I10 - Essential (primary) hypertension Is this a current diagnosis for this admission?: Yes (8) Neuropathy Is this a current diagnosis for this admission?: Yes (9) Constipation Is this a current diagnosis for this admission?: YesPlan: Resolved. - Time Time Spent with patient: 25-34 minutes - Plan Summary Plan Summary: Awaiting rehab placement
[2017-05-08] MEDS: FUROSEMIDE 80 MG TABLET PO SCH ×2 (10:35→17:46)
[2017-05-08] MEDS: FAMOTIDINE 20 MG TABLET PO SCH ×2 (10:38→21:48)
[2017-05-08] MEDS: GABAPENTIN 300 MG CAPSULE PO SCH (10:38)
[2017-05-08] MEDS: HYDRALAZINE HCL 50 MG TABLET PO SCH ×2 (10:38→21:48)
[2017-05-08] MEDS: CARVEDILOL 12.5 MG TABLET PO SCH ×2 (10:39→21:48)
[2017-05-08] MEDS: SERTRALINE HCL 50 MG TABLET PO SCH (11:48)
[2017-05-08] MEDS: ARIPIPRAZOLE 5 MG TABLET PO SCH (21:48)
[2017-05-08] MEDS: INSULIN GLARGINE,HUM.REC.ANLOG 300 UNIT/3 ML INSULN.PEN SUBCUT SCH (21:49)
[2017-05-09] MEDS: HEPARIN SOD (PORCINE) 5,000 UNIT/ML 1 ML SYRINGE SUBCUT SCH ×3 (05:39→21:30)
[2017-05-09] MEDS: FUROSEMIDE 80 MG TABLET PO SCH ×2 (09:17→18:00)
[2017-05-09] MEDS: CARVEDILOL 12.5 MG TABLET PO SCH ×2 (09:18→21:30)
[2017-05-09] MEDS: GABAPENTIN 300 MG CAPSULE PO SCH (09:18)
[2017-05-09] MEDS: FAMOTIDINE 20 MG TABLET PO SCH ×2 (09:18→21:31)
[2017-05-09] MEDS: HYDRALAZINE HCL 50 MG TABLET PO SCH ×2 (09:18→21:31)
[2017-05-09] MEDS: INSULIN LISPRO 100 UNIT/ML 3 ML VIAL SUBCUT SCH ×3 (09:19→18:01)
[2017-05-09] MEDS: SERTRALINE HCL 50 MG TABLET PO SCH (12:13)
[2017-05-09] MEDS: INSULIN LISPRO 100 UNIT/ML 3 ML VIAL SUBCUT PRN ×2 (12:14→18:02)
--- NOTE | 2017-05-09 14:15 | PDOC PROGRESS REPORT ---
Subjective Progress Note for:: 05/09/17 Subjective:: Patient told the nursing staff last night that he was considering suicide again. Physical Exam Vital Signs: Temp Pulse Resp BP Pulse Ox 98.4 F 69 20 110/70 100 05/09/17 13:20 05/09/17 13:20 05/09/17 13:20 05/09/17 13:20 05/09/17 13:20 Intake & Output 05/08/17 05/09/17 05/10/17 06:59 06:59 06:59 Intake Total 1870 1480 Output Total 1500 1050 Balance 370 430 Weight 170.6 kg 170.6 kg General appearance: PRESENT: no acute distress Eye exam: PRESENT: conjunctiva pink. ABSENT: scleral icterus Mouth exam: PRESENT: moist, tongue midline Neck exam: ABSENT: JVD Respiratory exam: PRESENT: clear to auscultation eusebia. ABSENT: rales, rhonchi, wheezes Cardiovascular exam: PRESENT: RRR. ABSENT: diastolic murmur, rubs, systolic murmur GI/Abdominal exam: PRESENT: normal bowel sounds, soft. ABSENT: distended, guarding, mass, organolmegaly, rebound, tenderness Extremities exam: PRESENT: other - Status post right BKA. ABSENT: calf tenderness, clubbing, pedal edema Neurological exam: PRESENT: alert, awake, oriented to person, oriented to place , oriented to time, oriented to situation, CN II-XII grossly intact. ABSENT: motor sensory deficit Psychiatric exam: PRESENT: depressed Skin exam: PRESENT: dry, intact, warm. ABSENT: cyanosis, rash Results Laboratory Results: 05/08/17 05:12 05/08/17 05:12 Impressions: Renal Ultrasound 04/15/17 00:00 IMPRESSION: NORMAL RENAL AND BLADDER ULTRASOUND. Chest X-Ray 05/04/17 00:00 IMPRESSION: NO ACUTE RADIOGRAPHIC FINDING IN THE CHEST. Assessment & Plan - Diagnosis (1) CKD (chronic kidney disease) Qualifiers: Chronic kidney disease stage: stage 3 (moderate) Qualified Code(s): N18.3 - Chronic kidney disease, stage 3 (moderate) Is this a current diagnosis for this admission?: YesPlan: Was admitted with acute on chronic renal failure. The patient has been seen by nephrology during his hospitalization. Continue with Lasix (2) Sciatica Qualifiers: Laterality: unspecified laterality Qualified Code(s): M54.30 - Sciatica, unspecified side Is this a current diagnosis for this admission?: YesPlan: Resolved (3) Peripheral vascular disease Is this a current diagnosis for this admission?: YesPlan: Patient has had a previous below the knee amputation on the right. (4) Obesity Qualifiers: Obesity type: unspecified obesity type Obesity severity: morbid Qualified Code(s): E66.01 - Morbid (severe) obesity due to excess calories Is this a current diagnosis for this admission?: Yes (5) Blindness Is this a current diagnosis for this admission?: Yes (6) CHF (congestive heart failure) Qualifiers: Congestive heart failure type: unspecified congestive heart failure type Congestive heart failure chronicity: acute on chronic Qualified Code(s): I50.9 - Heart failure, unspecified Is this a current diagnosis for this admission?: YesPlan: Has a history of chronic diastolic congestive heart failure. Currently euvolemic (7) HTN (hypertension) Qualifiers: Hypertension type: essential hypertension Qualified Code(s): I10 - Essential (primary) hypertension Is this a current diagnosis for this admission?: Yes (8) Neuropathy Is this a current diagnosis for this admission?: Yes (9) Constipation Is this a current diagnosis for this admission?: YesPlan: Resolved. (10) Depression Is this a current diagnosis for this admission?: YesPlan: Psychiatry has been consulted - Time Time Spent with patient: 25-34 minutes - Inpatient Certification Medical Necessity: Need Close Monitoring Due to Risk of Patient Decompensation
[2017-05-09] MEDS: INSULIN GLARGINE,HUM.REC.ANLOG 300 UNIT/3 ML INSULN.PEN SUBCUT SCH (21:30)
[2017-05-09] MEDS: ARIPIPRAZOLE 5 MG TABLET PO SCH (21:31)
[2017-05-10] MEDS: HEPARIN SOD (PORCINE) 5,000 UNIT/ML 1 ML SYRINGE SUBCUT SCH ×3 (05:29→21:45)
[2017-05-10] MEDS: INSULIN LISPRO 100 UNIT/ML 3 ML VIAL SUBCUT SCH ×3 (08:09→18:20)
[2017-05-10] MEDS: INSULIN LISPRO 100 UNIT/ML 3 ML VIAL SUBCUT PRN ×2 (08:10→12:55)
--- NOTE | 2017-05-10 10:39 | PDOC PROGRESS REPORT ---
Subjective Progress Note for:: 05/10/17 Subjective:: Patient complains of a rash on his left talbot. Physical Exam Vital Signs: Temp Pulse Resp BP Pulse Ox 97.7 F 66 15 127/57 H 97 05/10/17 07:58 05/10/17 07:58 05/10/17 07:58 05/10/17 07:58 05/10/17 07:58 Intake & Output 05/09/17 05/10/17 05/11/17 06:59 06:59 06:59 Intake Total 1480 940 Output Total 1050 1290 Balance 430 -350 Weight 170.6 kg 168.4 kg General appearance: PRESENT: no acute distress Eye exam: PRESENT: conjunctiva pink. ABSENT: scleral icterus Mouth exam: PRESENT: moist, tongue midline Neck exam: ABSENT: JVD Respiratory exam: PRESENT: clear to auscultation eusebia. ABSENT: rales, rhonchi, wheezes Cardiovascular exam: PRESENT: RRR. ABSENT: diastolic murmur, rubs, systolic murmur GI/Abdominal exam: PRESENT: normal bowel sounds, soft. ABSENT: distended, guarding, mass, organolmegaly, rebound, tenderness Extremities exam: ABSENT: calf tenderness, clubbing, pedal edema Neurological exam: PRESENT: alert, awake, oriented to person, oriented to place , oriented to time, oriented to situation, CN II-XII grossly intact. ABSENT: motor sensory deficit Psychiatric exam: PRESENT: appropriate affect Skin exam: PRESENT: other - Erythematous rash on the left talbot consistent with dermatitis. Results Laboratory Results: 05/08/17 05:12 05/08/17 05:12 Impressions: Renal Ultrasound 04/15/17 00:00 IMPRESSION: NORMAL RENAL AND BLADDER ULTRASOUND. Chest X-Ray 05/04/17 00:00 IMPRESSION: NO ACUTE RADIOGRAPHIC FINDING IN THE CHEST. Assessment & Plan - Diagnosis (1) CKD (chronic kidney disease) Qualifiers: Chronic kidney disease stage: stage 3 (moderate) Qualified Code(s): N18.3 - Chronic kidney disease, stage 3 (moderate) Is this a current diagnosis for this admission?: YesPlan: Was admitted with acute on chronic renal failure. The patient has been seen by nephrology during his hospitalization. Continue with Lasix. His weight is stable (2) Sciatica Qualifiers: Laterality: unspecified laterality Qualified Code(s): M54.30 - Sciatica, unspecified side Is this a current diagnosis for this admission?: YesPlan: Resolved (3) Peripheral vascular disease Is this a current diagnosis for this admission?: YesPlan: Patient has had a previous below the knee amputation on the right. (4) Obesity Qualifiers: Obesity type: unspecified obesity type Obesity severity: morbid Qualified Code(s): E66.01 - Morbid (severe) obesity due to excess calories Is this a current diagnosis for this admission?: Yes (5) Blindness Is this a current diagnosis for this admission?: Yes (6) CHF (congestive heart failure) Qualifiers: Congestive heart failure type: unspecified congestive heart failure type Congestive heart failure chronicity: acute on chronic Qualified Code(s): I50.9 - Heart failure, unspecified Is this a current diagnosis for this admission?: YesPlan: Has a history of chronic diastolic congestive heart failure. Currently euvolemic (7) HTN (hypertension) Qualifiers: Hypertension type: essential hypertension Qualified Code(s): I10 - Essential (primary) hypertension Is this a current diagnosis for this admission?: Yes (8) Neuropathy Is this a current diagnosis for this admission?: Yes (9) Constipation Is this a current diagnosis for this admission?: YesPlan: Resolved. (10) Depression Is this a current diagnosis for this admission?: YesPlan: Psychiatry has been consulted (11) Dermatitis Is this a current diagnosis for this admission?: YesPlan: We will give triamcinolone cream. - Time Time Spent with patient: 15-24 minutes - Plan Summary Plan Summary: Waiting on rehab placement.
[2017-05-10] MEDS: HYDRALAZINE HCL 50 MG TABLET PO SCH ×2 (11:13→21:45)
[2017-05-10] MEDS: FUROSEMIDE 80 MG TABLET PO SCH ×2 (11:14→18:17)
[2017-05-10] MEDS: CARVEDILOL 12.5 MG TABLET PO SCH ×2 (11:15→21:44)
[2017-05-10] MEDS: FAMOTIDINE 20 MG TABLET PO SCH ×2 (11:15→21:44)
[2017-05-10] MEDS: GABAPENTIN 300 MG CAPSULE PO SCH (11:15)
[2017-05-10] MEDS: HYDROCODONE/ACETAMINOPHEN 10-325 MG TABLET PO PRN (13:08)
[2017-05-10] MEDS ORDERED: CITALOPRAM HYDROBROMIDE 20 MG TABLET PO ONE (14:00)
--- NOTE | 2017-05-10 15:24 | PSYCHOLOGICAL NOTE ---
Psych Note - Psych Note Psych Note: ERLIN DIAMOND is a 42 year old male complicated past medical history including diabetes, chronic renal failure and congestive heart failure who presents with a two-week history of nausea with intermittent vomiting. Psychiatric consult requested for depression. Patient states he has no new concerns. Patient is observed with his daughter. Patient is very proud of his daughter and as previously noted in first evaluation patient is very close with her. Patient states his significant other and him are trying to work on things however the other day she was going to go on a date. Patient felt very upset about this. Patient continued disclosed that he did not feel any difference with the medication that was given to him for depression. Patient denies plan for suicide; hasa passive suicidal ideation when sad. Patient is alert and orientated to person place time and circumstance. mood is manic with congruent affect. Clinician notes patient is visiting with his daughter. patient endorses passive suicidal ideation with no plan, means or intent. Denies homicidal ideation. Patient denies auditory visual hallucinations; patient is not demonstrating any behavior congruent to responding to internal stimuli. No delusions are noted. Thought process is organized and linear. Conversational speech was within normal rate tone and prosody. Eye contact was well-maintained. Intellectual abilities appear to be average to high average range. Attention and concentration are good. Insight, judgment, impulse control are fair. 311 (F32.9) unspecified depressive disorder Impression\plan: Patient is psychiatrically clear for discharge. Discloses passive suicidal ideation with no plan means or intent patient is not demonstrating any behavior congruent to responding to internal stimuli. Patient does not meet IVC criteria per [place] GS 122C. 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 Dr. Hunter was consulted and the care and management of this patient; attending physician is in agreement with recommendations and disposition.
[2017-05-10] MEDS: TRIAMCINOLONE ACETONIDE 0.1% CREAM 15 GM TOP PRN (18:29)
[2017-05-10] MEDS: INSULIN GLARGINE,HUM.REC.ANLOG 300 UNIT/3 ML INSULN.PEN SUBCUT SCH (21:46)
[2017-05-11] MEDS: HEPARIN SOD (PORCINE) 5,000 UNIT/ML 1 ML SYRINGE SUBCUT SCH ×3 (05:02→21:34)
[2017-05-11] MEDS: ACETAMINOPHEN 325 MG TABLET PO PRN (05:03)
[2017-05-11] MEDS: TRIAMCINOLONE ACETONIDE 0.1% CREAM 15 GM TOP PRN (08:08)
[2017-05-11] MEDS: INSULIN LISPRO 100 UNIT/ML 3 ML VIAL SUBCUT PRN ×2 (08:33→13:42)
[2017-05-11] MEDS: INSULIN LISPRO 100 UNIT/ML 3 ML VIAL SUBCUT SCH ×3 (08:33→17:28)
[2017-05-11] MEDS: CITALOPRAM HYDROBROMIDE 20 MG TABLET PO SCH (09:38)
[2017-05-11] MEDS: FUROSEMIDE 80 MG TABLET PO SCH ×2 (09:38→17:28)
[2017-05-11] MEDS: GABAPENTIN 300 MG CAPSULE PO SCH (09:38)
[2017-05-11] MEDS: FAMOTIDINE 20 MG TABLET PO SCH ×2 (09:39→21:35)
[2017-05-11] MEDS: HYDRALAZINE HCL 50 MG TABLET PO SCH ×2 (09:39→21:35)
[2017-05-11] MEDS: CARVEDILOL 12.5 MG TABLET PO SCH ×2 (10:25→21:36)
--- NOTE | 2017-05-11 11:05 | PDOC PROGRESS REPORT ---
Subjective Progress Note for:: 05/11/17 Subjective:: Patient complains of a rash on his left talbot. Physical Exam Vital Signs: Temp Pulse Resp BP Pulse Ox 97.6 F 60 15 128/62 H 97 05/11/17 07:16 05/11/17 07:16 05/11/17 07:16 05/11/17 07:16 05/11/17 07:16 Intake & Output 05/10/17 05/11/17 05/12/17 06:59 06:59 06:59 Intake Total 940 1050 Output Total 1290 2250 Balance -350 -1200 Weight 168.4 kg 372.2 kg General appearance: PRESENT: no acute distress Eye exam: PRESENT: conjunctiva pink. ABSENT: scleral icterus Mouth exam: PRESENT: moist, tongue midline Neck exam: ABSENT: JVD Respiratory exam: PRESENT: clear to auscultation eusebia. ABSENT: rales, rhonchi, wheezes Cardiovascular exam: PRESENT: RRR. ABSENT: diastolic murmur, rubs, systolic murmur GI/Abdominal exam: PRESENT: normal bowel sounds, soft. ABSENT: distended, guarding, mass, organolmegaly, rebound, tenderness Extremities exam: PRESENT: other - Right BKA.. ABSENT: calf tenderness, clubbing, pedal edema Neurological exam: PRESENT: alert, awake, oriented to person, oriented to place , oriented to time, oriented to situation, CN II-XII grossly intact. ABSENT: motor sensory deficit Psychiatric exam: PRESENT: appropriate affect Skin exam: PRESENT: other - Erythematous lesion on the right talbot. Results Laboratory Results: 05/08/17 05:12 05/08/17 05:12 Impressions: Renal Ultrasound 04/15/17 00:00 IMPRESSION: NORMAL RENAL AND BLADDER ULTRASOUND. Chest X-Ray 05/04/17 00:00 IMPRESSION: NO ACUTE RADIOGRAPHIC FINDING IN THE CHEST. Assessment & Plan - Diagnosis (1) CKD (chronic kidney disease) Qualifiers: Chronic kidney disease stage: stage 3 (moderate) Qualified Code(s): N18.3 - Chronic kidney disease, stage 3 (moderate) Is this a current diagnosis for this admission?: YesPlan: Was admitted with acute on chronic renal failure. The patient has been seen by nephrology during his hospitalization. Continue with Lasix. His weight is stable (2) Sciatica Qualifiers: Laterality: unspecified laterality Qualified Code(s): M54.30 - Sciatica, unspecified side Is this a current diagnosis for this admission?: YesPlan: Resolved (3) Peripheral vascular disease Is this a current diagnosis for this admission?: YesPlan: Patient has had a previous below the knee amputation on the right. (4) Obesity Qualifiers: Obesity type: unspecified obesity type Obesity severity: morbid Qualified Code(s): E66.01 - Morbid (severe) obesity due to excess calories Is this a current diagnosis for this admission?: Yes (5) Blindness Is this a current diagnosis for this admission?: Yes (6) CHF (congestive heart failure) Qualifiers: Congestive heart failure type: unspecified congestive heart failure type Congestive heart failure chronicity: acute on chronic Qualified Code(s): I50.9 - Heart failure, unspecified Is this a current diagnosis for this admission?: YesPlan: Has a history of chronic diastolic congestive heart failure. Currently euvolemic (7) HTN (hypertension) Qualifiers: Hypertension type: essential hypertension Qualified Code(s): I10 - Essential (primary) hypertension Is this a current diagnosis for this admission?: Yes (8) Neuropathy Is this a current diagnosis for this admission?: Yes (9) Constipation Is this a current diagnosis for this admission?: YesPlan: Resolved. (10) Depression Is this a current diagnosis for this admission?: YesPlan: Denies any thoughts of suicide (11) Dermatitis Is this a current diagnosis for this admission?: YesPlan: Continue with triamcinolone cream. - Time Time Spent with patient: 15-24 minutes - Plan Summary Plan Summary: Awaiting placement in rehab
[2017-05-11] MEDS: INSULIN GLARGINE,HUM.REC.ANLOG 300 UNIT/3 ML INSULN.PEN SUBCUT SCH (21:31)
[2017-05-11] MEDS: HYDROCODONE/ACETAMINOPHEN 10-325 MG TABLET PO PRN (21:34)
[2017-05-12] MEDS: HYDROCODONE/ACETAMINOPHEN 10-325 MG TABLET PO PRN (02:46)
[2017-05-12] MEDS: HEPARIN SOD (PORCINE) 5,000 UNIT/ML 1 ML SYRINGE SUBCUT SCH ×3 (06:24→23:15)
[2017-05-12] MEDS: INSULIN LISPRO 100 UNIT/ML 3 ML VIAL SUBCUT SCH ×3 (09:35→18:47)
[2017-05-12] MEDS: FAMOTIDINE 20 MG TABLET PO SCH ×2 (09:36→23:14)
[2017-05-12] MEDS: HYDRALAZINE HCL 50 MG TABLET PO SCH ×2 (09:37→23:14)
[2017-05-12] MEDS: CITALOPRAM HYDROBROMIDE 20 MG TABLET PO SCH (09:38)
[2017-05-12] MEDS: GABAPENTIN 300 MG CAPSULE PO SCH (09:38)
[2017-05-12] MEDS: FUROSEMIDE 80 MG TABLET PO SCH ×2 (09:42→18:47)
--- NOTE | 2017-05-12 10:51 | PDOC PROGRESS REPORT ---
Subjective Progress Note for:: 05/12/17 Subjective:: Patient complains of a rash on his left talbot. Physical Exam Vital Signs: Temp Pulse Resp BP Pulse Ox 97.7 F 57 L 16 131/74 H 100 05/12/17 08:00 05/12/17 08:00 05/12/17 08:00 05/12/17 08:00 05/12/17 08:00 Intake & Output 05/11/17 05/12/17 05/13/17 06:59 06:59 06:59 Intake Total 1050 1730 Output Total 2250 2075 Balance -1200 -345 Weight 372.2 kg 168.2 kg General appearance: PRESENT: no acute distress Eye exam: PRESENT: conjunctiva pink. ABSENT: scleral icterus Mouth exam: PRESENT: moist, tongue midline Neck exam: ABSENT: JVD Respiratory exam: PRESENT: clear to auscultation eusebia. ABSENT: rales, rhonchi, wheezes Cardiovascular exam: PRESENT: RRR. ABSENT: diastolic murmur, rubs, systolic murmur GI/Abdominal exam: PRESENT: normal bowel sounds, soft. ABSENT: distended, guarding, mass, organolmegaly, rebound, tenderness Extremities exam: PRESENT: other - Right BKA. ABSENT: calf tenderness, clubbing , pedal edema Neurological exam: PRESENT: alert, awake, oriented to person, oriented to place , oriented to time, oriented to situation, CN II-XII grossly intact. ABSENT: motor sensory deficit Psychiatric exam: PRESENT: appropriate affect Skin exam: PRESENT: dry, intact, warm. ABSENT: cyanosis, rash Results Laboratory Results: 05/08/17 05:12 05/08/17 05:12 Impressions: Renal Ultrasound 04/15/17 00:00 IMPRESSION: NORMAL RENAL AND BLADDER ULTRASOUND. Chest X-Ray 05/04/17 00:00 IMPRESSION: NO ACUTE RADIOGRAPHIC FINDING IN THE CHEST. Assessment & Plan - Diagnosis (1) CKD (chronic kidney disease) Qualifiers: Chronic kidney disease stage: stage 3 (moderate) Qualified Code(s): N18.3 - Chronic kidney disease, stage 3 (moderate) Is this a current diagnosis for this admission?: YesPlan: Was admitted with acute on chronic renal failure. The patient has been seen by nephrology during his hospitalization. Continue with Lasix. His weight is stable (2) Sciatica Qualifiers: Laterality: unspecified laterality Qualified Code(s): M54.30 - Sciatica, unspecified side Is this a current diagnosis for this admission?: YesPlan: Resolved (3) Peripheral vascular disease Is this a current diagnosis for this admission?: YesPlan: Patient has had a previous below the knee amputation on the right. (4) Obesity Qualifiers: Obesity type: unspecified obesity type Obesity severity: morbid Qualified Code(s): E66.01 - Morbid (severe) obesity due to excess calories Is this a current diagnosis for this admission?: Yes (5) Blindness Is this a current diagnosis for this admission?: Yes (6) CHF (congestive heart failure) Qualifiers: Congestive heart failure type: unspecified congestive heart failure type Congestive heart failure chronicity: acute on chronic Qualified Code(s): I50.9 - Heart failure, unspecified Is this a current diagnosis for this admission?: YesPlan: Has a history of chronic diastolic congestive heart failure. Currently euvolemic (7) HTN (hypertension) Qualifiers: Hypertension type: essential hypertension Qualified Code(s): I10 - Essential (primary) hypertension Is this a current diagnosis for this admission?: Yes (8) Neuropathy Is this a current diagnosis for this admission?: Yes (9) Constipation Is this a current diagnosis for this admission?: YesPlan: Resolved. (10) Depression Is this a current diagnosis for this admission?: YesPlan: Denies any thoughts of suicide (11) Dermatitis Is this a current diagnosis for this admission?: YesPlan: Continue with triamcinolone cream. - Time Time Spent with patient: 15-24 minutes - Plan Summary Plan Summary: Will discharge to rehab when a bed becomes available.
[2017-05-12] MEDS: CARVEDILOL 12.5 MG TABLET PO SCH ×2 (13:31→23:12)
[2017-05-12] MEDS: INSULIN GLARGINE,HUM.REC.ANLOG 300 UNIT/3 ML INSULN.PEN SUBCUT SCH (23:16)
[2017-05-13] MEDS: HEPARIN SOD (PORCINE) 5,000 UNIT/ML 1 ML SYRINGE SUBCUT SCH ×3 (05:20→21:12)
[2017-05-13 07:19] LABS: ABSOLUTE EOSINOPHILS # (AUTO) 0.2 10^3/uL (0.0-0.6); ABSOLUTE LYMPHOCYTES (AUTO) 1.8 10^3/uL (0.5-4.7); ABSOLUTE MONOCYTES (AUTO) 0.7 10^3/uL (0.1-1.4); ABSOLUTE NEUT (AUTO) 4.1 10^3/uL (1.7-8.2); BASOPHILS % (AUTO) 0.5 % (0-2); EOSINOPHILS % (AUTO) 2.6 % (0-6); HEMATOCRIT 31.3 % (37.9-51.0); HEMOGLOBIN 9.9 g/dL (13.5-17.0); HGB HCT DIFFERENCE -1.6; LYMPHOCYTES % (AUTO) 26.5 % (13-45); MEAN CORPUSCULAR HEMOGLOBIN 31.5 pg (27.0-33.4); MEAN CORPUSCULAR HGB CONC 31.7 g/dL (32.0-36.0); MEAN CORPUSCULAR VOLUME 100 fl (80-97); RED BLOOD COUNT 3.14 10^6/uL (4.35-5.55); RED CELL DISTRIBUTION WIDTH 14.8 % (11.5-14.0); SEGMENTED NEUTROPHILS % (AUTO) 60.4 % (42-78); WHITE BLOOD COUNT 6.8 10^3/uL (4.0-10.5)
[2017-05-13 07:37] LABS: ANION GAP 12 (5-19); BLOOD UREA NITROGEN 52 mg/dL (7-20); CALCIUM 7.8 mg/dL (8.4-10.2); CARBON DIOXIDE 24 mmol/L (22-30); CHLORIDE 106 mmol/L (98-107); CREATININE RESULT 4.97 mg/dL (0.52-1.25); GLUCOSE 126 mg/dL (75-110); POTASSIUM 5.1 mmol/L (3.6-5.0); SODIUM 141.9 mmol/L (137-145)
[2017-05-13] MEDS: ONDANSETRON 4 MG TAB.RAPDIS PO PRN (08:13)
[2017-05-13] MEDS: INSULIN LISPRO 100 UNIT/ML 3 ML VIAL SUBCUT SCH ×3 (08:24→16:36)
[2017-05-13] MEDS: POLYETHYLENE GLYCOL 3350 POWDER 17 GM/1 PACKET PO PRN (08:26)
[2017-05-13] MEDS: CITALOPRAM HYDROBROMIDE 20 MG TABLET PO SCH (11:17)
[2017-05-13] MEDS: INSULIN LISPRO 100 UNIT/ML 3 ML VIAL SUBCUT PRN (11:17)
[2017-05-13] MEDS: FAMOTIDINE 20 MG TABLET PO SCH ×2 (11:20→21:10)
[2017-05-13] MEDS: GABAPENTIN 300 MG CAPSULE PO SCH (11:20)
[2017-05-13] MEDS: CARVEDILOL 12.5 MG TABLET PO SCH ×2 (11:20→21:10)
[2017-05-13] MEDS: HYDRALAZINE HCL 50 MG TABLET PO SCH ×2 (11:21→21:09)
[2017-05-13] MEDS: FUROSEMIDE 80 MG TABLET PO SCH ×2 (11:21→17:17)
--- NOTE | 2017-05-13 13:02 | PDOC PROGRESS REPORT ---
Subjective Progress Note for:: 05/13/17 Subjective:: Patient states that he is having difficulty fitting into prosthetic right lower extremity secondary to swelling. Patient denies fever, chills, headache, new focal weakness, chest pain, shortness of breath, abdominal pain, nausea, vomiting, diarrhea, constipation. Physical Exam Vital Signs: Temp Pulse Resp BP Pulse Ox 97.8 F 62 12 128/64 H 99 05/13/17 07:36 05/13/17 07:36 05/13/17 07:36 05/13/17 07:36 05/13/17 07:36 Intake & Output 05/12/17 05/13/17 05/14/17 06:59 06:59 06:59 Intake Total 1730 1040 Output Total 3442 1695 Balance -345 -1585 Weight 168.2 kg 167.6 kg GENERAL: No acute distress HEENT: Conjunctiva clear, nonicteric, moist mucous membranes, no JVD, midline trachea RESPIRATORY: Clear to auscultation bilaterally, no wheezes, no rhonchi CARDIAC: Regular rate and rhythm, no murmurs/gallops/rubs ABDOMEN: Soft, nondistended, nontender, positive bowel sounds, no rebound, no guarding EXTREMETIES: Status post right below the knee amputation, pitting edema in left leg NEUROLOGIC: Alert, oriented to person/place/time, CN's grossly intact, no focal deficits SKIN: No rash, wounds PSYCH: Normal mood, normal affect Results Laboratory Results: 05/13/17 06:58 05/13/17 06:58 05/13/17 05/13/17 06:58 06:58 WBC 6.8 RBC 3.14 L Hgb 9.9 L Hct 31.3 L MCV 100 H MCH 31.5 MCHC 31.7 L RDW 14.8 H Plt Count 292 Seg Neutrophils % 60.4 Lymphocytes % 26.5 Monocytes % 10.0 Eosinophils % 2.6 Basophils % 0.5 Absolute Neutrophils 4.1 Absolute Lymphocytes 1.8 Absolute Monocytes 0.7 Absolute Eosinophils 0.2 Absolute Basophils 0.0 Sodium 141.9 Potassium 5.1 H Chloride 106 Carbon Dioxide 24 Anion Gap 12 BUN 52 H Creatinine 4.97 H Est GFR ( Amer) 16 L Est GFR (Non-Af Amer) 13 L Glucose 126 H Calcium 7.8 L Impressions: Renal Ultrasound 04/15/17 00:00 IMPRESSION: NORMAL RENAL AND BLADDER ULTRASOUND. Chest X-Ray 05/04/17 00:00 IMPRESSION: NO ACUTE RADIOGRAPHIC FINDING IN THE CHEST. Assessment & Plan - Diagnosis (1) History of right below knee amputation Is this a current diagnosis for this admission?: YesPlan: Patient is having difficulty fitting in prosthesis secondary to edema. Continue physical therapy. Awaiting rehab placement. (2) Diabetes Is this a current diagnosis for this admission?: YesPlan: Continue Lantus. Sliding scale insulin. 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 Patient still a little edematous so I will increase Lasix to 120 mg twice daily. (5) Peripheral vascular disease Is this a current diagnosis for this admission?: Yes (6) HTN (hypertension) Qualifiers: Hypertension type: essential hypertension Qualified Code(s): I10 - Essential (primary) hypertension Is this a current diagnosis for this admission?: Yes (7) Neuropathy Is this a current diagnosis for this admission?: Yes - Time Time Spent with patient: 15-24 minutes Anticipated discharge: Acute Rehab Within: when bed available
[2017-05-13] MEDS: INSULIN GLARGINE,HUM.REC.ANLOG 300 UNIT/3 ML INSULN.PEN SUBCUT SCH (21:13)
[2017-05-14] MEDS: HEPARIN SOD (PORCINE) 5,000 UNIT/ML 1 ML SYRINGE SUBCUT SCH ×2 (05:46→15:43)
[2017-05-14 06:15] LABS: ABSOLUTE EOSINOPHILS # (AUTO) 0.2 10^3/uL (0.0-0.6); ABSOLUTE LYMPHOCYTES (AUTO) 1.9 10^3/uL (0.5-4.7); ABSOLUTE MONOCYTES (AUTO) 0.7 10^3/uL (0.1-1.4); ABSOLUTE NEUT (AUTO) 4.3 10^3/uL (1.7-8.2); BASOPHILS % (AUTO) 0.7 % (0-2); HEMATOCRIT 31.2 % (37.9-51.0); HGB HCT DIFFERENCE -1.2; LYMPHOCYTES % (AUTO) 26.3 % (13-45); MEAN CORPUSCULAR HEMOGLOBIN 32.1 pg (27.0-33.4); MEAN CORPUSCULAR HGB CONC 32.1 g/dL (32.0-36.0); MEAN CORPUSCULAR VOLUME 100 fl (80-97); MONOCYTES % (AUTO) 9.8 % (3-13); RED BLOOD COUNT 3.12 10^6/uL (4.35-5.55); RED CELL DISTRIBUTION WIDTH 14.7 % (11.5-14.0); SEGMENTED NEUTROPHILS % (AUTO) 60.2 % (42-78); WHITE BLOOD COUNT 7.2 10^3/uL (4.0-10.5)
[2017-05-14 06:43] LABS: ANION GAP 13 (5-19); BLOOD UREA NITROGEN 54 mg/dL (7-20); CALCIUM 7.9 mg/dL (8.4-10.2); CARBON DIOXIDE 24 mmol/L (22-30); CHLORIDE 104 mmol/L (98-107); CREATININE RESULT 5.43 mg/dL (0.52-1.25); GLUCOSE 108 mg/dL (75-110); POTASSIUM 5.4 mmol/L (3.6-5.0); SODIUM 140.8 mmol/L (137-145)
[2017-05-14] MEDS: INSULIN LISPRO 100 UNIT/ML 3 ML VIAL SUBCUT SCH ×3 (08:10→16:49)
[2017-05-14] MEDS: GABAPENTIN 300 MG CAPSULE PO SCH (09:56)
[2017-05-14] MEDS: FUROSEMIDE 80 MG TABLET PO SCH ×2 (09:57→17:43)
[2017-05-14] MEDS: CITALOPRAM HYDROBROMIDE 20 MG TABLET PO SCH (09:58)
[2017-05-14] MEDS: HYDRALAZINE HCL 50 MG TABLET PO SCH ×2 (09:58→21:40)
[2017-05-14] MEDS: FAMOTIDINE 20 MG TABLET PO SCH ×2 (09:59→21:40)
[2017-05-14] MEDS: CARVEDILOL 12.5 MG TABLET PO SCH ×2 (09:59→21:39)
--- NOTE | 2017-05-14 15:07 | PDOC PROGRESS REPORT ---
Subjective Progress Note for:: 05/14/17 Subjective:: Patient has no new complaints. Patient denies fever, chills, headache, new focal weakness, chest pain, shortness of breath, abdominal pain, nausea, vomiting, diarrhea, constipation. Physical Exam Vital Signs: Temp Pulse Resp BP Pulse Ox 98.0 F 65 18 144/63 H 97 05/14/17 12:05 05/14/17 12:05 05/14/17 12:05 05/14/17 12:05 05/14/17 12:05 Intake & Output 05/13/17 05/14/17 05/15/17 06:59 06:59 06:59 Intake Total 1040 808 Output Total 2625 800 Balance -1585 8 Weight 167.6 kg 168.7 kg GENERAL: No acute distress HEENT: Conjunctiva clear, nonicteric, moist mucous membranes, no JVD, midline trachea RESPIRATORY: Clear to auscultation bilaterally, no wheezes, no rhonchi CARDIAC: Regular rate and rhythm, no murmurs/gallops/rubs ABDOMEN: Soft, nondistended, nontender, positive bowel sounds, no rebound, no guarding EXTREMETIES: Status post right below the knee amputation, trace edema in left leg NEUROLOGIC: Alert, oriented to person/place/time, CN's grossly intact, no focal deficits SKIN: No rash, wounds PSYCH: Normal mood, normal affect Results Laboratory Results: 05/14/17 05:34 05/14/17 05:34 05/14/17 05/14/17 05:34 05:34 WBC 7.2 RBC 3.12 L Hgb 10.0 L Hct 31.2 L MCV 100 H MCH 32.1 MCHC 32.1 RDW 14.7 H Plt Count 282 Seg Neutrophils % 60.2 Lymphocytes % 26.3 Monocytes % 9.8 Eosinophils % 3.0 Basophils % 0.7 Absolute Neutrophils 4.3 Absolute Lymphocytes 1.9 Absolute Monocytes 0.7 Absolute Eosinophils 0.2 Absolute Basophils 0.0 Sodium 140.8 Potassium 5.4 H Chloride 104 Carbon Dioxide 24 Anion Gap 13 BUN 54 H Creatinine 5.43 H Est GFR ( Amer) 14 L Est GFR (Non-Af Amer) 12 L Glucose 108 Calcium 7.9 L Impressions: Renal Ultrasound 04/15/17 00:00 IMPRESSION: NORMAL RENAL AND BLADDER ULTRASOUND. Chest X-Ray 05/04/17 00:00 IMPRESSION: NO ACUTE RADIOGRAPHIC FINDING IN THE CHEST. Assessment & Plan - Diagnosis (1) History of right below knee amputation Is this a current diagnosis for this admission?: YesPlan: Patient is having difficulty fitting in prosthesis secondary to edema. Continue physical therapy. Awaiting rehab placement. (2) Diabetes Is this a current diagnosis for this admission?: YesPlan: Continue Lantus. Sliding scale insulin. Check hemoglobin A1c in a.m. 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 Continue Lasix to 120 mg twice daily. Patient is followed by Dr. Strong of nephrology. (5) Peripheral vascular disease Is this a current diagnosis for this admission?: Yes (6) HTN (hypertension) Qualifiers: Hypertension type: essential hypertension Qualified Code(s): I10 - Essential (primary) hypertension Is this a current diagnosis for this admission?: YesPlan: Decrease Coreg to 12.5 mg twice daily secondary to bradycardia. Continue hydralazine. Add Imdur 30 mg daily. (7) Neuropathy Is this a current diagnosis for this admission?: Yes - Time Time Spent with patient: 25-34 minutes
[2017-05-14] MEDS: EPOETIN ALFA INJ 20000 UNIT/1 ML VIAL (RENAL) SUBCUT SCH (17:43)
[2017-05-14] MEDS: INSULIN GLARGINE,HUM.REC.ANLOG 300 UNIT/3 ML INSULN.PEN SUBCUT SCH (21:40)
[2017-05-15 05:09] LABS: ABSOLUTE EOSINOPHILS # (AUTO) 0.2 10^3/uL (0.0-0.6); ABSOLUTE LYMPHOCYTES (AUTO) 2.2 10^3/uL (0.5-4.7); ABSOLUTE MONOCYTES (AUTO) 0.7 10^3/uL (0.1-1.4); ABSOLUTE NEUT (AUTO) 4.5 10^3/uL (1.7-8.2); BASOPHILS % (AUTO) 0.6 % (0-2); EOSINOPHILS % (AUTO) 2.3 % (0-6); HEMATOCRIT 29.5 % (37.9-51.0); HEMOGLOBIN 9.8 g/dL (13.5-17.0); HGB HCT DIFFERENCE -0.1; LYMPHOCYTES % (AUTO) 28.6 % (13-45); MEAN CORPUSCULAR HEMOGLOBIN 32.8 pg (27.0-33.4); MEAN CORPUSCULAR HGB CONC 33.2 g/dL (32.0-36.0); MEAN CORPUSCULAR VOLUME 99 fl (80-97); MONOCYTES % (AUTO) 9.7 % (3-13); RED BLOOD COUNT 2.98 10^6/uL (4.35-5.55); RED CELL DISTRIBUTION WIDTH 14.2 % (11.5-14.0); SEGMENTED NEUTROPHILS % (AUTO) 58.8 % (42-78); WHITE BLOOD COUNT 7.7 10^3/uL (4.0-10.5)
[2017-05-15 05:28] LABS: ANION GAP 10 (5-19); BLOOD UREA NITROGEN 53 mg/dL (7-20); CALCIUM 7.8 mg/dL (8.4-10.2); CARBON DIOXIDE 26 mmol/L (22-30); CHLORIDE 105 mmol/L (98-107); CREATININE RESULT 5.41 mg/dL (0.52-1.25); GLUCOSE 104 mg/dL (75-110); POTASSIUM 5.3 mmol/L (3.6-5.0); SODIUM 141.4 mmol/L (137-145)
[2017-05-15] MEDS: INSULIN LISPRO 100 UNIT/ML 3 ML VIAL SUBCUT SCH ×3 (07:46→17:37)
[2017-05-15] MEDS: CARVEDILOL 12.5 MG TABLET PO SCH ×2 (09:20→22:08)
[2017-05-15] MEDS: HYDRALAZINE HCL 50 MG TABLET PO SCH ×2 (09:20→22:05)
[2017-05-15] MEDS: FUROSEMIDE 80 MG TABLET PO SCH ×2 (09:21→17:37)
[2017-05-15] MEDS: CITALOPRAM HYDROBROMIDE 20 MG TABLET PO SCH (09:21)
[2017-05-15] MEDS: GABAPENTIN 300 MG CAPSULE PO SCH (09:21)
[2017-05-15] MEDS ORDERED: INSULIN LISPRO 100 UNIT/ML 3 ML VIAL SUBCUT PRN (09:57)
[2017-05-15] MEDS ORDERED: ISOSORBIDE MONONITRATE 30 MG TAB.ER.24H PO SCH (10:00)
--- NOTE | 2017-05-15 10:08 | PDOC TRANSFER SUMMARY ---
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 Is this a current diagnosis for this admission?: Yes (4) Chronic kidney disease, stage IV (severe) Is this a current diagnosis for this admission?: Yes (5) Peripheral vascular disease Is this a current diagnosis for this admission?: Yes (6) HTN (hypertension) Is this a current diagnosis for this admission?: Yes (7) Neuropathy Is this a current diagnosis for this admission?: Yes - Additional Information Resuscitation Status: Full Code Discharge Diet: Cardiac, Diabetic Discharge Activity: Activity As Tolerated Home Medications: Calcium Acetate [Phoslo 667 mg Capsule] 2,668 mg PO MEALS 04/15/17 Omeprazole 40 mg PO DAILY 04/15/17 Pravastatin Sodium [Pravachol] 40 mg PO QHS 04/15/17 Promethazine HCl [Phenergan 25 mg Tablet] 25 mg PO Q6HP PRN 04/15/17 Tramadol HCl [Ultram 50 mg Tablet] 50 mg PO Q6HP PRN 04/15/17 Acetaminophen [Tylenol 325 mg Tablet] 650 mg PO Q6HP PRN tablet 05/15/17 Carvedilol [Coreg 12.5 mg Tablet] 12.5 mg PO Q12 tablet 05/15/17 Citalopram Hydrobromide [Celexa 20 mg Tablet] 10 mg PO DAILY tablet 05/15/17 Epoetin Irvin [Procrit Inj 20,000 Unit/1 ml Vial (Renal)] 20,000 unit SUBCUT We@ 1800 ml 05/15/17 Furosemide [Lasix 80 mg Tablet] 120 mg PO BID tablet 05/15/17 Gabapentin [Neurontin 300 mg Capsule] 600 mg PO DAILY capsule 05/15/17 Hydralazine HCl [Apresoline 50 mg Tablet] 50 mg PO Q12 tablet 05/15/17 Hydrocodone/Acetaminophen [[place] 10-325 mg Tablet] 1 tab PO Q4HP PRN #10 tablet 05/15/17 Insulin Aspart [Novolog Insulin 100 Unit/1 ml 10 ml] 0 unit SUBCUT .SLD SCALE # 10 ml 05/15/17 Insulin Aspart [Novolog Insulin 100 Unit/1 ml 10 ml] 10 unit SUBCUT AC #10 ml Insulin Glargine,Hum.rec.anlog [Lantus Insulin 100 Unit/mL] 30 unit SUBCUT QHS insuln.pen 05/15/17 Insulin Lispro [Humalog Insulin (Lispro) 100 unit/mL] 10 unit SUBCUT AC unit Isosorbide Mononitrate [Imdur 30 mg Tablet.er] 30 mg PO DAILY tab.er.24h Polyethylene Glycol 3350 [Miralax Powder 17 gm/Packet] 17 gm PO DAILYP PRN powd.pack 05/15/17 Triamcinolone Acetonide [Aristocort 0.1% Cream] 1 applic TOP BIDP PRN tube History of Present Illness Admission Date/PCP: 04/14/17 17:28 ELSIE OCONNOR DO Patient complains of: Nausea and vomiting History of Present Illness: ERLIN DIAMOND is a 42 year old male complicated past medical history including diabetes, chronic renal failure and congestive heart failure who presents with a two-week history of nausea with intermittent vomiting. The patient reports he had difficulty tolerating p.o. for the last several days. He also has had decreased urinary output and was found to have acute on chronic renal failure. The patient also complains of low back pain that radiates in the sciatic nerve distribution on the left. He denies any trauma. He denies any bowel or bladder incontinence. Having fevers or chills. He reports that he has never discussed whether or not he would want dialysis done. He denies any orthopnea or PND. He denies any lower extremity edema. Hospital Course Hospital Course: Patient was admitted for acute on chronic renal failure. He has chronic kidney disease stage IV at baseline that is followed by Dr. Strong of nephrology. His creatinine on admission was 7.40 and he was thought to be volume depleted at that time. He was administer IV fluids and his creatinine improved to 5.4 at discharge. He did become somewhat volume overloaded later in admission and his Lasix was restarted at a slightly lower dose of 120 mg twice daily. He will need to follow-up with Dr. Strong of nephrology. He has been started on erythropoietin for anemia associated with chronic renal failure. Iron level was normal. Patient has peripheral vascular disease and has had recent right below the knee amputation. He has right lower extremity prosthesis already made. He has resulting ambulatory dysfunction and needs ongoing rehabilitative care. He has been accepted to [facility]. With respect to his diabetes he has been on insulin regimen mentioned above and his diabetes is well controlled at time of discharge. His hemoglobin A1c on is 7.3. His diabetes is complicated by peripheral vascular disease, chronic renal failure, retinopathy and right eye blindness. He also has partial vision loss in the left eye as well. Physical Exam Vital Signs: Temp Pulse Resp BP Pulse Ox 98.4 F 59 L 16 119/58 L 100 05/15/17 08:00 05/15/17 08:00 05/15/17 08:00 05/15/17 08:00 05/15/17 08:00 Intake & Output 05/14/17 05/15/17 05/16/17 06:59 06:59 06:59 Intake Total 808 1300 Output Total 800 1400 Balance 8 -100 Weight 168.7 kg 165.6 kg GENERAL: No acute distress HEENT: Conjunctiva clear, nonicteric, moist mucous membranes, no JVD, midline trachea RESPIRATORY: Clear to auscultation bilaterally, no wheezes, no rhonchi CARDIAC: Regular rate and rhythm, no murmurs/gallops/rubs ABDOMEN: Soft, nondistended, nontender, positive bowel sounds, no rebound, no guarding EXTREMETIES: Status post right below the knee amputation, trace edema in left leg NEUROLOGIC: Alert, oriented to person/place/time, CN's grossly intact, no focal deficits SKIN: No rash, wounds PSYCH: Normal mood, normal affect Results Laboratory Results: 05/15/17 04:38 05/15/17 04:38 05/15/17 05/15/17 04:38 04:38 WBC 7.7 RBC 2.98 L Hgb 9.8 L Hct 29.5 L MCV 99 H MCH 32.8 MCHC 33.2 RDW 14.2 H Plt Count 267 Seg Neutrophils % 58.8 Lymphocytes % 28.6 Monocytes % 9.7 Eosinophils % 2.3 Basophils % 0.6 Absolute Neutrophils 4.5 Absolute Lymphocytes 2.2 Absolute Monocytes 0.7 Absolute Eosinophils 0.2 Absolute Basophils 0.0 Sodium 141.4 Potassium 5.3 H Chloride 105 Carbon Dioxide 26 Anion Gap 10 BUN 53 H Creatinine 5.41 H Est GFR ( Amer) 14 L Est GFR (Non-Af Amer) 12 L Glucose 104 Calcium 7.8 L Labs- Last Values WBC 7.7 10^3/uL (4.0-10.5) 05/15/17 04:38 RBC 2.98 10^6/uL (4.35-5.55) L 05/15/17 04:38 Hgb 9.8 g/dL (13.5-17.0) L 05/15/17 04:38 Hct 29.5 % (37.9-51.0) L 05/15/17 04:38 MCV 99 fl (80-97) H 05/15/17 04:38 MCH 32.8 pg (27.0-33.4) 05/15/17 04:38 MCHC 33.2 g/dL (32.0-36.0) 05/15/17 04:38 RDW 14.2 % (11.5-14.0) H 05/15/17 04:38 Plt Count 267 10^3/uL (150-450) 05/15/17 04:38 Total Counted 100 04/29/17 05:42 Seg Neutrophils % 58.8 % (42-78) 05/15/17 04:38 Seg Neuts % (Manual) 71 % (42-78) 04/29/17 05:42 Band Neutrophils % 4 % (3-5) 04/29/17 05:42 Lymphocytes % 28.6 % (13-45) 05/15/17 04:38 Lymphocytes % (Manual) 15 % (13-45) 04/29/17 05:42 Atypical Lymphs % 2 % (0) 04/14/17 15:45 Monocytes % 9.7 % (3-13) 05/15/17 04:38 Monocytes % (Manual) 6 % (3-13) 04/29/17 05:42 Eosinophils % 2.3 % (0-6) 05/15/17 04:38 Eosinophils % (Manual) 1 % (0-6) 04/29/17 05:42 Basophils % 0.6 % (0-2) 05/15/17 04:38 Basophils % (Manual) 0 % (0-2) 04/29/17 05:42 Metamyelocytes % 3 % (0) H 04/29/17 05:42 Absolute Neutrophils 4.5 10^3/uL (1.7-8.2) 05/15/17 04:38 Abs Neuts (Manual) 7.2 10^3/uL (1.7-8.2) 04/29/17 05:42 Absolute Lymphocytes 2.2 10^3/uL (0.5-4.7) 05/15/17 04:38 Abs Lymphs (Manual) 1.4 10^3/uL (0.5-4.7) 04/29/17 05:42 Absolute Monocytes 0.7 10^3/uL (0.1-1.4) 05/15/17 04:38 Abs Monocytes (Manual) 0.6 10^3/uL (0.1-1.4) 04/29/17 05:42 Absolute Eosinophils 0.2 10^3/uL (0.0-0.6) 05/15/17 04:38 Absolute Eos (Manual) 0.1 10^3/uL (0.0-0.6) 04/29/17 05:42 Absolute Basophils 0.0 10^3/uL (0.0-0.2) 05/15/17 04:38 Abs Basophils (Manual) 0.0 10^3/uL (0.0-0.2) 04/29/17 05:42 Nucleated RBCs 1 /100 WBC (0) 04/26/17 05:47 Toxic Granulation SLIGHT 04/29/17 05:42 Toxic Vacuolation PRESENT 04/26/17 05:47 Platelet Comment ADEQUATE 04/29/17 05:42 Polychromasia SLIGHT 04/29/17 05:42 Hypochromasia SLIGHT 04/29/17 05:42 RBC Morph Comment NORMO-CYTIC/CHROMIC 04/26/17 05:47 Retic Count (auto) 2.17 % (0.66-2.85) 04/16/17 05:35 Absolute Retic 0.067 10^6/uL (0.028-0.122) 04/16/17 05:35 Sodium 141.4 mmol/L (137-145) 05/15/17 04:38 Potassium 5.3 mmol/L (3.6-5.0) H 05/15/17 04:38 Chloride 105 mmol/L (98-107) 05/15/17 04:38 Carbon Dioxide 26 mmol/L (22-30) 05/15/17 04:38 Anion Gap 10 (5-19) 05/15/17 04:38 BUN 53 mg/dL (7-20) H 05/15/17 04:38 Creatinine 5.41 mg/dL (0.52-1.25) H 05/15/17 04:38 Est GFR ( Amer) 14 (>60) L 05/15/17 04:38 Est GFR (Non-Af Amer) 12 (>60) L 05/15/17 04:38 Glucose 104 mg/dL (75-110) 05/15/17 04:38 POC Glucose 124 mg/dL (70-110) H 05/15/17 05:52 Hemoglobin A1c % 7.3 % (4.7-6.0) H 05/15/17 04:38 Calcium 7.8 mg/dL (8.4-10.2) L 05/15/17 04:38 Phosphorus 5.3 mg/dL (2.5-4.5) H 04/16/17 05:35 Iron 176.6 ug/dL (49-181) 04/16/17 05:35 TIBC 219 ug/dL (250-450) L 04/16/17 05:35 % Saturation 81 % 04/16/17 05:35 Transferrin 169 mg/dL (200-370) L 04/16/17 05:35 Ferritin 548.00 ng/mL (17.9-464.0) H 04/16/17 05:35 Total Bilirubin 0.5 mg/dL (0.2-1.3) 04/15/17 05:44 Direct Bilirubin 0.4 mg/dL (0.0-0.4) 04/15/17 05:44 Indirect Bilirubin Not Reportable 04/15/17 05:44 Neonat Total Bilirubin Not Reportable 04/15/17 05:44 AST 21 U/L (17-59) 04/15/17 05:44 ALT 48 U/L (21-72) 04/15/17 05:44 Alkaline Phosphatase 63 U/L (38-126) 04/15/17 05:44 Total Protein 5.6 g/dL (6.0-8.5) L 04/17/17 04:52 Albumin 3.0 g/dL (2.9-4.4) 04/17/17 04:52 Globulin 2.6 g/dL (2.2-3.9) 04/17/17 04:52 Albumin/Globulin Ratio 1.2 (0.7-1.7) 04/17/17 04:52 Sdnzi-0-Ieuhctkqq 0.9 g/dL (0.4-1.0) 04/17/17 04:52 Beta Globulins 0.8 g/dL (0.7-1.3) 04/17/17 04:52 Gamma Globulins 0.8 g/dL (0.4-1.8) 04/17/17 04:52 M-Carlos Not Observed g/dL (Not Observed) 04/17/17 04:52 PEP Note Comment (.) 04/17/17 04:52 PEP Interpretation Comment (.) 04/17/17 04:52 Vitamin B12 827.0 pg/mL (239-931) 04/16/17 05:35 Folate 7.36 ng/mL (>2.76) 04/16/17 05:35 PTH Intact 18 pg/mL (15-65) 04/16/17 05:35 Urine Color YELLOW 04/14/17 17:00 Urine Appearance SLIGHTLY-CLOUDY 04/14/17 17:00 Urine pH 5.0 (5.0-9.0) 04/14/17 17:00 Ur Specific [employer] 1.012 04/14/17 17:00 Urine Protein >=500 mg/dL (NEGATIVE) H 04/14/17 17:00 Urine Glucose (UA) >=500 mg/dL (NEGATIVE) H 04/14/17 17:00 Urine Ketones NEGATIVE mg/dL (NEGATIVE) 04/14/17 17:00 Urine Blood SMALL (NEGATIVE) H 04/14/17 17:00 Urine Nitrite NEGATIVE (NEGATIVE) 04/14/17 17:00 Urine Bilirubin NEGATIVE (NEGATIVE) 04/14/17 17:00 Urine Urobilinogen NEGATIVE mg/dL (<2.0) 04/14/17 17:00 Ur Leukocyte Esterase NEGATIVE (NEGATIVE) 04/14/17 17:00 Urine WBC (Auto) 3 /HPF 04/14/17 17:00 Urine RBC (Auto) 1 /HPF 04/14/17 17:00 U Hyaline Cast (Auto) 1 /LPF 04/14/17 17:00 Urine Bacteria (Auto) TRACE /HPF 04/14/17 17:00 Squamous Epi Cells Auto 1 /HPF 04/14/17 17:00 Amorphous Sediment Auto TRACE /HPF 04/14/17 17:00 Urine Mucus (Auto) RARE /LPF 04/14/17 17:00 Urine Creatinine 109.3 mg/dL (22-328) 04/17/17 06:37 Protein/Creatinin Ratio 3.5 mg/mg (0.0-0.2) H 04/17/17 06:37 Urine Total Protein 382.4 mg/dL (<12) H 04/17/17 06:37 Urine Ascorbic Acid NEGATIVE (NEGATIVE) 04/14/17 17:00 Slides for Path Review PATHOLOGIST REVIEWED 04/29/17 05:42 Impressions: Renal Ultrasound 04/15/17 00:00 IMPRESSION: NORMAL RENAL AND BLADDER ULTRASOUND. Chest X-Ray 05/04/17 00:00 IMPRESSION: NO ACUTE RADIOGRAPHIC FINDING IN THE CHEST. Transfer Plan - Time Spent with Patient Time spent with patient: Greater than 30 Minutes Qualifiers PATEINT BEING DISCHARGED WITH ANY OF THE FOLLOWING DIAGNOSIS?: No
--- NOTE | 2017-05-15 10:12 | PDOC PROGRESS REPORT ---
Subjective Progress Note for:: 05/15/17 Subjective:: Patient has no new complaints. Patient denies fever, chills, headache, new focal weakness, chest pain, shortness of breath, abdominal pain, nausea, vomiting, diarrhea, constipation. Physical Exam Vital Signs: Temp Pulse Resp BP Pulse Ox 98.4 F 59 L 16 119/58 L 100 05/15/17 08:00 05/15/17 08:00 05/15/17 08:00 05/15/17 08:00 05/15/17 08:00 Intake & Output 05/14/17 05/15/17 05/16/17 06:59 06:59 06:59 Intake Total 808 1300 Output Total 800 1400 Balance 8 -100 Weight 168.7 kg 165.6 kg GENERAL: No acute distress HEENT: Conjunctiva clear, nonicteric, moist mucous membranes, no JVD, midline trachea RESPIRATORY: Clear to auscultation bilaterally, no wheezes, no rhonchi CARDIAC: Regular rate and rhythm, no murmurs/gallops/rubs ABDOMEN: Soft, nondistended, nontender, positive bowel sounds, no rebound, no guarding EXTREMETIES: Status post right below the knee amputation, trace edema in left leg NEUROLOGIC: Alert, oriented to person/place/time, CN's grossly intact, no focal deficits SKIN: No rash, wounds PSYCH: Normal mood, normal affect Results Laboratory Results: 05/15/17 04:38 05/15/17 04:38 05/15/17 05/15/17 04:38 04:38 WBC 7.7 RBC 2.98 L Hgb 9.8 L Hct 29.5 L MCV 99 H MCH 32.8 MCHC 33.2 RDW 14.2 H Plt Count 267 Seg Neutrophils % 58.8 Lymphocytes % 28.6 Monocytes % 9.7 Eosinophils % 2.3 Basophils % 0.6 Absolute Neutrophils 4.5 Absolute Lymphocytes 2.2 Absolute Monocytes 0.7 Absolute Eosinophils 0.2 Absolute Basophils 0.0 Sodium 141.4 Potassium 5.3 H Chloride 105 Carbon Dioxide 26 Anion Gap 10 BUN 53 H Creatinine 5.41 H Est GFR ( Amer) 14 L Est GFR (Non-Af Amer) 12 L Glucose 104 Calcium 7.8 L Impressions: Renal Ultrasound 04/15/17 00:00 IMPRESSION: NORMAL RENAL AND BLADDER ULTRASOUND. Chest X-Ray 05/04/17 00:00 IMPRESSION: NO ACUTE RADIOGRAPHIC FINDING IN THE CHEST. Assessment & Plan - Diagnosis (1) History of right below knee amputation Is this a current diagnosis for this admission?: YesPlan: Patient is having difficulty fitting in prosthesis secondary to edema. Continue physical therapy. Patient has been accepted to [facility] and we will arrange transportation the morning. (2) Diabetes Is this a current diagnosis for this admission?: YesPlan: Continue scheduled Humalog and Lantus. Sliding scale insulin. Hemoglobin A1c 7.3. 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 Continue Lasix to 120 mg twice daily. Patient is followed by Dr. Strong of nephrology. (5) Peripheral vascular disease Is this a current diagnosis for this admission?: Yes (6) HTN (hypertension) Qualifiers: Hypertension type: essential hypertension Qualified Code(s): I10 - Essential (primary) hypertension Is this a current diagnosis for this admission?: YesPlan: Decreased Coreg to 12.5 mg twice daily secondary to bradycardia. Continue hydralazine, Imdur 30 mg daily. (7) Neuropathy Is this a current diagnosis for this admission?: Yes (8) Anemia Qualifiers: Anemia type: unspecified type Qualified Code(s): D64.9 - Anemia, unspecified Is this a current diagnosis for this admission?: YesPlan: Secondary to chronic kidney disease. Continue erythropoietin weekly. Iron stores normal. - Time Time Spent with patient: 25-34 minutes Anticipated discharge: Acute Rehab Within: within 24 hours
[2017-05-15] MEDS: INSULIN GLARGINE,HUM.REC.ANLOG 300 UNIT/3 ML INSULN.PEN SUBCUT SCH (22:08)
[2017-05-16 08:15] VITALS: BP 137/50
--- NOTE | 2017-05-16 08:54 | PDOC PROGRESS REPORT ---
Subjective Progress Note for:: 05/16/17 Subjective:: Patient has no new complaints. He is going to rehab this morning. Patient denies fever, chills, headache, new focal weakness, chest pain, shortness of breath, abdominal pain, nausea, vomiting, diarrhea, constipation. Physical Exam Vital Signs: Temp Pulse Resp BP Pulse Ox 97.7 F 65 15 137/50 H 99 05/16/17 07:32 05/16/17 07:32 05/16/17 07:32 05/16/17 07:32 05/16/17 07:32 Intake & Output 05/15/17 05/16/17 05/17/17 06:59 06:59 06:59 Intake Total 1300 1525 Output Total 1400 1925 Balance -100 -400 Weight 165.6 kg 164.4 kg GENERAL: No acute distress HEENT: Conjunctiva clear, nonicteric, moist mucous membranes, no JVD, midline trachea RESPIRATORY: Clear to auscultation bilaterally, no wheezes, no rhonchi CARDIAC: Regular rate and rhythm, no murmurs/gallops/rubs ABDOMEN: Soft, nondistended, nontender, positive bowel sounds, no rebound, no guarding EXTREMETIES: Status post right below the knee amputation, trace edema in left leg NEUROLOGIC: Alert, oriented to person/place/time, CN's grossly intact, no focal deficits SKIN: No rash, wounds PSYCH: Normal mood, normal affect Results Laboratory Results: 05/15/17 04:38 05/15/17 04:38 Impressions: Renal Ultrasound 04/15/17 00:00 IMPRESSION: NORMAL RENAL AND BLADDER ULTRASOUND. Chest X-Ray 05/04/17 00:00 IMPRESSION: NO ACUTE RADIOGRAPHIC FINDING IN THE CHEST. Assessment & Plan - Diagnosis (1) History of right below knee amputation Is this a current diagnosis for this admission?: YesPlan: Patient is having difficulty fitting in prosthesis secondary to edema. Continue physical therapy. Stable for transfer to acute rehab this morning. 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 Is this a current diagnosis for this admission?: Yes (4) Chronic kidney disease, stage IV (severe) Is this a current diagnosis for this admission?: Yes (5) Peripheral vascular disease Is this a current diagnosis for this admission?: Yes (6) HTN (hypertension) Qualifiers: Hypertension type: essential hypertension Qualified Code(s): I10 - Essential (primary) hypertension Is this a current diagnosis for this admission?: Yes (7) Neuropathy Is this a current diagnosis for this admission?: Yes (8) Anemia Qualifiers: Anemia type: unspecified type Qualified Code(s): D64.9 - Anemia, unspecified Is this a current diagnosis for this admission?: Yes - Time Time Spent with patient: 15-24 minutes Anticipated discharge: Acute Rehab
== END 2017-05-16 09:21 | disposition other institution (70) | DRG 683 ==
LOC: ER 13:14 → EH 17:28 → UNDOADMIN 17:38 → EH 18:51 → 4S 18:51 → 4N 05-13 18:42
PROVIDERS: ADMIT Internal Medicine; ATTEND Internal Medicine
DX: N17.9 Acute kidney failure, unspecified (principal); I13.0 Hypertensive heart and chronic kidney disease with heart failure and stage 1 through stage 4 chronic kidney disease, or unspecified chronic kidney disease; Z68.42 Body mass index [BMI] 45.0-49.9, adult; E86.0 Dehydration; E10.65 Type 1 diabetes mellitus with hyperglycemia; E10.22 Type 1 diabetes mellitus with diabetic chronic kidney disease; N18.4 Chronic kidney disease, stage 4 (severe); I50.9 Heart failure, unspecified; E10.40 Type 1 diabetes mellitus with diabetic neuropathy, unspecified; E10.319 Type 1 diabetes mellitus with unspecified diabetic retinopathy without macular edema; H54.0 Blindness, both eyes; I73.9 Peripheral vascular disease, unspecified; E78.5 Hyperlipidemia, unspecified; K21.9 Gastro-esophageal reflux disease without esophagitis; M54.30 Sciatica, unspecified side; K59.00 Constipation, unspecified; M19.90 Unspecified osteoarthritis, unspecified site; F32.9 Major depressive disorder, single episode, unspecified; M54.5 Low back pain; E66.01 Morbid (severe) obesity due to excess calories; Z79.899 Other long term (current) drug therapy; Z79.4 Long term (current) use of insulin; Z89.511 Acquired absence of right leg below knee; Z87.891 Personal history of nicotine dependence
CPT/HCPCS: 36415; 71010; 76775; 80048; 80053; 81001; 82570; 82607; 82728; 82746; 82962; 83036; 83540; 83550; 83970; 84100; 84156; 84165; 84466; 85025; 85027; 85045; 93005; 93010; 96361; 96374; 99285; G8978-GP; G8979-GP; J1644; J1815; J2270; J2405; J2920; J3490; J7030; Q4081; S0119

== ENCOUNTER 2017-06-13 21:48 | Emergency (ER) | payer MEDICAID ==
[2017-06-13 22:09] VITALS: BP 178/70
--- NOTE | 2017-06-13 23:47 | ER Document Report ---
ED General - General Chief Complaint: Medication Refill Stated Complaint: medication refill Time Seen by Provider: 06/13/17 23:45 Notes: 42-year-old male with diabetes and multiple complications including recent amputation just discharged from [facility] at 1 PM after rehabilitation presents asking for medications. His girlfriend was supposed to fill all of his prescriptions" she lied" so he does not have any of his meds. He feels "lethargic" but this is not much different than when he was discharged. No other complaints. Does not have any money for his co-pays but does have insurance. TRAVEL OUTSIDE OF THE [place] IN LAST 30 DAYS: No - Related Data Allergies/Adverse Reactions: No Known Allergies Allergy (Verified 12/27/15 16:34) Past Medical History - General Information source: Patient - Social History Smoking Status: Unknown if Ever Smoked Family History: Reviewed & Not Pertinent Patient has suicidal ideation: No Patient has homicidal ideation: No - Past Medical History Cardiac Medical History: Reports: Hx Congestive Heart Failure - Diastolic dysfunction, Hx Hypercholesterolemia, Hx Hypertension, Hx Peripheral Vascular Disease Pulmonary Medical History: Neurological Medical History: Endocrine Medical History: Reports: Hx Diabetes Mellitus Type 1, Hx Diabetes Mellitus Type 2 Renal/ Medical History: Denies: Hx Peritoneal Dialysis Malignancy Medical History: GI Medical History: Reports: Hx Gastroesophageal Reflux Disease Musculoskeltal Medical History: Reports Hx Arthritis Psychiatric Medical History: Reports: Hx Depression Traumatic Medical History: Infectious Medical History: Past Surgical History: Reports: Hx Orthopedic Surgery - left foot, Other - 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 - Immunizations Hx Diphtheria, Pertussis, Tetanus Vaccination: No Review of Systems - Review of Systems Notes: REVIEW OF SYSTEMS GEN: Fatigue ENT: Denies sore throat, nasal discharge, ear pain EYES: Denies blurry vision, eye pain, discharge CV: Denies chest pain, palpitations, edema RESP: Denies cough, shortness of breath, wheezing GI: Denies abdominal pain, nausea, vomiting, diarrhea MSK: Denies joint pain/swelling, edema, right leg pain SKIN: Denies rash, skin lesions LYMPH: Denies swollen glands/lymph nodes NEURO: Denies headache, focal weakness or numbness, dizziness PSYCH: Denies depression, suicidal or homicidal ideation PHYSICAL EXAMINATION General: No acute distress, well-nourished. Obese. Head: Atraumatic, normocephalic ENT: Mouth normal, oropharynx moist, no exudates or tonsillar enlargement Eyes: Conjunctiva normal, blind in right eye Neck: No JVD, supple, no guarding CVS: Normal rate, regular rhythm, no murmurs Resp: No resp distress, equal and normal breath sounds bilaterally GI: Nondistended, soft, no tenderness to palpation, no rebound or guarding Ext: No deformities, n right below-knee amputation with prosthesis in place Back: No CVA or midline TTP Skin: No rash, warm Lymphatic: No lymphadeopathy noted Neuro: Awake, alert. Face symmetric. GCS 15. Physical Exam - Vital signs Vitals: Temp Pulse Resp BP Pulse Ox 98.7 F 79 20 178/70 H 97 06/13/17 22:06 06/13/17 22:06 06/13/17 22:06 06/13/17 22:06 06/13/17 22:06 Course - Re-evaluation Re-evalutation: 06/13/17 23:47 Chronic medical issues just discharge with no medical emergencies. Social issues including cannot take his meds. Blood sugar normal here. Referral to social work. Discharged in stable condition. I have discussed with the patient there likely diagnosis, aftercare plan, follow -up plans and my usual and customary return precautions. They verbalized understanding of this. - Vital Signs Vital signs: Temp Pulse Resp BP Pulse Ox 98.7 F 79 20 178/70 H 97 06/13/17 22:06 06/13/17 22:06 06/13/17 22:06 06/13/17 22:06 06/13/17 22:06 Discharge - Discharge Clinical Impression: Diabetes Fatigue Qualifiers: Fatigue type: other Qualified Code(s): R53.83 - Other fatigue Condition: Good Disposition: HOME, SELF-CARE Additional Instructions: We are not able to dispense any of her medications tonight. Please speak with her primary care provider about figuring out a way to get your medicines.
== END 2017-06-14 00:02 | disposition home or self-care (01) ==
LOC: ER 21:48
DX: E11.51 Type 2 diabetes mellitus with diabetic peripheral angiopathy without gangrene (principal); R53.83 Other fatigue; I10 Essential (primary) hypertension; Z89.511 Acquired absence of right leg below knee; Z59.9 Problem related to housing and economic circumstances, unspecified
CPT/HCPCS: 82962; 99281

== ENCOUNTER 2017-06-14 10:06 | Emergency (ER) | payer OTHER, MEDICAID ==
--- NOTE | 2017-06-14 10:38 | ER Document Report ---
ED Psych Disorder / Suicide <CASSIE HANDLEY - Last Filed: 06/14/17 13:46> - General Mode of Arrival: Stretcher Information source: Patient TRAVEL OUTSIDE OF THE [place] IN LAST 30 DAYS: No - HPI Patient complains to provider of: Suicidal ideation Onset: Yesterday Onset was: Sudden Quality of pain: No pain Suicide Risk Factors: Depressed, Male Normal mood: No Associated symptoms: Depressed, Flat affect Similar symptoms previously: Yes Recently seen / treated by doctor: Yes <HERBERTH MARION - Last Filed: 06/14/17 17:49> - General Chief Complaint: Psych Problem Stated Complaint: SUICIDE IDEATIONS Time Seen by Provider: 06/14/17 10:10 - HPI Notes: Patient is he is overwhelmed and does not know what to think. Disclosed that he signed himself out of rehab early because he was concerned about his daughter. He stated that he spoke with his ex-girlfriend and found out that she could not find a certified genetic counselor and was going to leave her home alone while she went to work. He continues states that he was concerned his daughter is only 7. He continued disclosed that he started the process of checking out when he found out that his ex-girlfriend found a certified genetic counselor at the last minute. He stated that by that time is too late to stop the discharge. He continued to state that he had already interviewed to go to [facility] he was released from the rehab in [place]. He continued to state that his ex-girlfriend verified the discharge plan stating that she would help him and get his medications however when they got home she stated that she did not have the money to do it. He continued to state that he just "does not know what to think anymore." Patient is alert and orientated to person place time and circumstance. Mood is dysphoric with tearful affect. Patient does not verbally endorse suicidal ideation with clinician stating "I just do not know what to think anymore." Denies homicidal ideation. No delusions are noted. Patient denies auditory and visual hallucinations; patient is not demonstrating any behavior congruent with responding to internal stimuli. Thought process is currently organized and linear. Eye contact is poor patient notes patient is almost completely blind. Attention and concentration is fair. Insight, judgment and impulse control is poor. 311 (F32.9) unspecified depressive disorder Impression\\plan: Patient is considered psychiatrically clear for discharge. Patient does not meet IVC criteria per [place] GS 122C. Patient is well-known to this clinician. Patient is unable to care for himself because of medical diagnosis and complications. Patient is blind and an amputee. Patient to clinician previously he has had difficulty adjusting to the loss of his leg and was sent for rehab for assistance in learning to walk again. Patient has passive suicidal ideation that comes and goes. Patient is recommended for outpatient mental health services. Dr. Hunter was consulted and the care management of this patient; attending physician in agreement with recommendations and disposition. (CASSIE HANDLEY) Patient is a 42-year-old male with multiple medical problems who presents to the emergency room this morning complaining of suicidal ideation, he reports that his ex-girlfriend of 2-3 months problems to help him get his medications when he was discharged from rehab recently, but she did not do so and now he has no medications at home, he has a history of depression that was recently diagnosed, he has no other support networks in the community, and therefore now he wishes to kill himself, he has no specific plan to do so he just no longer has a desire to live, patient denies any injury or pain, has a history of diabetes and hypertension, with a right-sided BKA, is in generally poor state of health with chronic kidney disease as well, was recently hospitalized at this facility for medical reasons and then transferred to rehab center for 1 month's time to regain his strength (HERBERTH MARION) - Related Data Allergies/Adverse Reactions: No Known Allergies Allergy (Verified 12/27/15 16:34) Past Medical History - General Information source: Patient - Social History Smoking Status: Never Smoker Family History: Reviewed & Not Pertinent - Past Medical History Cardiac Medical History: Reports: Hx Congestive Heart Failure - Diastolic dysfunction, Hx Hypercholesterolemia, Hx Hypertension, Hx Peripheral Vascular Disease Pulmonary Medical History: Neurological Medical History: Endocrine Medical History: Reports: Hx Diabetes Mellitus Type 1, Hx Diabetes Mellitus Type 2 Renal/ Medical History: Denies: Hx Peritoneal Dialysis Malignancy Medical History: GI Medical History: Reports: Hx Gastroesophageal Reflux Disease Musculoskeltal Medical History: Reports Hx Arthritis Psychiatric Medical History: Reports: Hx Depression Traumatic Medical History: Infectious Medical History: Past Surgical History: Reports: Hx Orthopedic Surgery - left foot, Other - 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 - Immunizations Hx Diphtheria, Pertussis, Tetanus Vaccination: No <HERBERTH MARION - Last Filed: 06/14/17 17:49> Review of Systems - Review of Systems Constitutional: No symptoms reported EENT: No symptoms reported Cardiovascular: No symptoms reported Respiratory: No symptoms reported Gastrointestinal: No symptoms reported Genitourinary: No symptoms reported Male Genitourinary: No symptoms reported Musculoskeletal: No symptoms reported Skin: No symptoms reported Hematologic/Lymphatic: No symptoms reported Neurological/Psychological: See HPI -: Yes All other systems reviewed and negative <HERBERTH MARION - Last Filed: 06/14/17 17:49> Physical Exam <CASSIE HANDLEY - Last Filed: 06/14/17 13:46> - Vital signs Interpretation: Hypertensive - General General appearance: Alert In distress: None - HEENT Head: Normocephalic, Atraumatic Cornea: Opacified - right side Eyelashes: Normal Pupils: PERRL Mucous membranes: Normal Pharynx: Normal Neck: Normal - Respiratory Respiratory status: No respiratory distress Chest status: Nontender Breath sounds: Normal Chest palpation: Normal - Cardiovascular Rhythm: Regular Heart sounds: Normal auscultation Murmur: No - Abdominal Inspection: Normal Distension: No distension Bowel sounds: Normal Tenderness: Nontender Organomegaly: No organomegaly - Back Back: Normal, Nontender - Extremities General upper extremity: Nontender, Normal color, Normal ROM, Normal temperature General lower extremity: No: Ruben's sign - Neurological Neuro grossly intact: Yes Cognition: Normal Orientation: AAOx4 Edcouch Coma Scale Eye Opening: Spontaneous Derrick Coma Scale Verbal: Oriented Derrick Coma Scale Motor: Obeys Commands Derrick Coma Scale Total: 15 Speech: Normal Sensory: Normal - Psychological Associated symptoms: Depressed, Flat affect - Skin Skin Temperature: Warm Skin Moisture: Dry Skin Color: Pale <HERBERTH MARION - Last Filed: 06/14/17 17:49> - Vital signs Vitals: Temp Pulse Resp BP Pulse Ox 97.6 F 74 21 H 188/61 H 97 06/14/17 10:22 06/14/17 10:22 06/14/17 10:22 06/14/17 10:22 06/14/17 10:22 - Extremities Notes: Right BKA, left lower extremity is wrapped in bandaging (HERBERTH MARION) Course - Laboratory Result Diagrams: 06/14/17 10:45 06/14/17 10:45 <CASSIE HANDLEY - Last Filed: 06/14/17 13:46> - Laboratory Result Diagrams: 06/14/17 10:45 06/14/17 10:45 - EKG Interpretation by Me EKG shows normal: Sinus rhythm Rate: Normal Rhythm: NSR <HERBERTH MARION - Last Filed: 06/14/17 17:49> - Re-evaluation Re-evalutation: 06/14/17 14:37 Patient was discussed with mental health school social worker, Bhupendra, who knows patient well, reports he has passive suicidal ideation and no needs to commit suicide, no IVC paperwork required at this point in time, recommends consulting social work for discharge planning as patient likely cannot return home by himself due to his medical conditions and inability to care for himself at home Patient was discussed with Caitlin discharge planning school social worker, who was filled on on the details of patient's current condition, requested that she follow up in attempt to find placement for patient, she was then transferred to the nurse caring for patient (HERBERTH MARION) - Vital Signs Vital signs: Temp Pulse Resp BP Pulse Ox 97.6 F 74 21 H 188/61 H 97 06/14/17 10:22 06/14/17 10:22 06/14/17 10:22 06/14/17 10:22 06/14/17 10:22 - Laboratory Laboratory results interpreted by me: 06/14/17 06/14/17 06/14/17 10:45 10:45 14:46 RBC 3.37 L Hgb 10.9 L Hct 33.4 L MCV 99 H RDW 14.5 H Seg Neutrophils % 80.6 H Lymphocytes % 10.2 L Sodium 145.3 H Potassium 5.1 H Chloride 112 H BUN 48 H Creatinine 4.04 H Est GFR ( Amer) 20 L Est GFR (Non-Af Amer) 17 L Glucose 155 H POC Glucose Calcium 8.3 L AST 14 L Total Protein 5.9 L Albumin 3.4 L Urine Protein >=500 H Urine Glucose (UA) >=500 H Urine Ketones TRACE H Urine Blood SMALL H Salicylates < 1.0 L Acetaminophen < 10 L 06/14/17 17:06 RBC Hgb Hct MCV RDW Seg Neutrophils % Lymphocytes % Sodium Potassium Chloride BUN Creatinine Est GFR ( Amer) Est GFR (Non-Af Amer) Glucose POC Glucose 186 H Calcium AST Total Protein Albumin Urine Protein Urine Glucose (UA) Urine Ketones Urine Blood Salicylates Acetaminophen Discharge <CASSIE HANDLEY - Last Filed: 06/14/17 13:46> <HERBERTH MARION - Last Filed: 06/14/17 17:49> - Discharge Clinical Impression: Blindness, Chronic kidney disease, stage IV (severe), Cellulitis of right lower extremity, Depression, History of right below knee amputation CKD (chronic kidney disease) Qualifiers: Chronic kidney disease stage: stage 3 (moderate) Qualified Code(s): N18.3 - Chronic kidney disease, stage 3 (moderate) Obesity Qualifiers: Obesity type: unspecified obesity type Qualified Code(s): E66.01 - Morbid ( severe) obesity due to excess calories Condition: Stable Disposition: HOME, SELF-CARE
[2017-06-14 11:12] LABS: ABSOLUTE EOSINOPHILS # (AUTO) 0.2 10^3/uL (0.0-0.6); ABSOLUTE LYMPHOCYTES (AUTO) 0.9 10^3/uL (0.5-4.7); ABSOLUTE MONOCYTES (AUTO) 0.6 10^3/uL (0.1-1.4); ABSOLUTE NEUT (AUTO) 7.4 10^3/uL (1.7-8.2); BASOPHILS % (AUTO) 0.4 % (0-2); EOSINOPHILS % (AUTO) 2.2 % (0-6); HEMATOCRIT 33.4 % (37.9-51.0); HEMOGLOBIN 10.9 g/dL (13.5-17.0); HGB HCT DIFFERENCE -0.7; LYMPHOCYTES % (AUTO) 10.2 % (13-45); MEAN CORPUSCULAR HEMOGLOBIN 32.4 pg (27.0-33.4); MEAN CORPUSCULAR HGB CONC 32.6 g/dL (32.0-36.0); MEAN CORPUSCULAR VOLUME 99 fl (80-97); MONOCYTES % (AUTO) 6.6 % (3-13); RED BLOOD COUNT 3.37 10^6/uL (4.35-5.55); RED CELL DISTRIBUTION WIDTH 14.5 % (11.5-14.0); SEGMENTED NEUTROPHILS % (AUTO) 80.6 % (42-78); WHITE BLOOD COUNT 9.1 10^3/uL (4.0-10.5)
[2017-06-14 11:36] LABS: ALANINE AMINOTRANSFERASE 23 U/L (21-72); ALBUMIN 3.4 g/dL (3.5-5.0); ALKALINE PHOSPHATASE 74 U/L (38-126); ANION GAP 10 (5-19); ASPARTATE AMINO TRANSFERASE 14 U/L (17-59); BILIRUBIN,DIRECT 0.4 mg/dL (0.0-0.4); BILIRUBIN,TOTAL 0.6 mg/dL (0.2-1.3); BLOOD UREA NITROGEN 48 mg/dL (7-20); CALCIUM 8.3 mg/dL (8.4-10.2); CARBON DIOXIDE 23 mmol/L (22-30); CHLORIDE 112 mmol/L (98-107); CREATININE RESULT 4.04 mg/dL (0.52-1.25); GLUCOSE 155 mg/dL (75-110); POTASSIUM 5.1 mmol/L (3.6-5.0); SODIUM 145.3 mmol/L (137-145); TOTAL PROTEIN 5.9 g/dL (6.3-8.2)
[2017-06-14 11:37] LABS: ALCOHOL < 10 mg/dL (NONE DETECTED)
[2017-06-14] MEDS ORDERED: TUBERCULIN,PURIF.PROT.DERIV. 5 TU/0.1 ML TEST 1 ML VIAL ID ONE (13:49)
[2017-06-14 15:08] LABS: APPEARANCE,URINE CLEAR; BILIRUBIN,URINE NEGATIVE (NEGATIVE); GLUCOSE, URINE >=500 mg/dL (NEGATIVE); KETONES,URINE TRACE mg/dL (NEGATIVE); LEUKOCYTE ESTERASE,URINE NEGATIVE (NEGATIVE); NITRITE,URINE NEGATIVE (NEGATIVE); PROTEIN,URINE >=500 mg/dL (NEGATIVE); URINE SPECIFIC GRAVITY 1.009; UROBILINOGEN,URINE NEGATIVE mg/dL (<2.0)
--- NOTE | 2017-06-14 15:19 | EKG REPORT ---
SEVERITY:- NORMAL ECG - SINUS RHYTHM : Confirmed by: Arlette Gonzalez MD 14-Jun-2017 15:19:07
[2017-06-14 15:22] LABS: URINE BARBITURATES SCREEN NEGATIVE; URINE METHADONE SCREEN NEGATIVE; URINE OPIATES LOW NEGATIVE; URINE PHENCYCLIDINE SCREEN NEGATIVE
[2017-06-14] MEDS ORDERED: POLYETHYLENE GLYCOL 3350 POWDER 17 GM/1 PACKET PO PRN (16:14)
[2017-06-14] MEDS ORDERED: ACETAMINOPHEN 325 MG TABLET PO PRN (16:14)
[2017-06-14] MEDS ORDERED: TRIAMCINOLONE ACETONIDE 0.1% CREAM 15 GM TOP PRN (16:14)
[2017-06-14] MEDS ORDERED: INSULIN LISPRO 100 UNIT/ML 3 ML VIAL SUBCUT SCH (16:30)
[2017-06-14] MEDS: TRAMADOL HCL 50 MG TABLET PO PRN (17:29)
[2017-06-14] MEDS: PROMETHAZINE HCL 25 MG TABLET PO PRN (17:30)
[2017-06-14] MEDS: HYDROCODONE/ACETAMINOPHEN 10-325 MG TABLET PO PRN (17:30)
[2017-06-14] MEDS ORDERED: DEXTROSE 50%-WATER SYRINGE 25 GM/50 ML DOSE IV PRN (17:41)
[2017-06-14] MEDS ORDERED: GLUCAGON,HUMAN RECOMB 1 MG INJ IM PRN (17:41)
[2017-06-14] MEDS ORDERED: DEXTROSE 40% GEL 15 GM TUBE PO PRN (17:41)
[2017-06-14] MEDS ORDERED: DEXTROSE 40% GEL 15 GM TUBE X 2 PO PRN (17:41)
[2017-06-14] MEDS ORDERED: DEXTROSE 50%-WATER SYRINGE 12.5 GM/25 ML DOSE IV PRN (17:41)
[2017-06-14] MEDS ORDERED: FUROSEMIDE 80 MG TABLET ONE (17:55)
[2017-06-14] MEDS ORDERED: CALCIUM ACETATE 667 MG CAPSULE ONE (17:56)
[2017-06-14] MEDS ORDERED: FUROSEMIDE 80 MG TABLET PO SCH (18:00)
[2017-06-14] MEDS: CALCIUM ACETATE 667 MG CAPSULE PO SCH (18:05)
[2017-06-14] MEDS ORDERED: INSULIN GLARGINE,HUM.REC.ANLOG 300 UNIT/3 ML INSULN.PEN SUBCUT ONE (21:13)
[2017-06-14] MEDS: INSULIN GLARGINE,HUM.REC.ANLOG 300 UNIT/3 ML INSULN.PEN SUBCUT SCH (21:30)
[2017-06-14] MEDS: ATORVASTATIN CALCIUM 10 MG TABLET PO SCH (21:32)
[2017-06-14] MEDS: CARVEDILOL 12.5 MG TABLET PO SCH (21:33)
[2017-06-14] MEDS: HYDRALAZINE HCL 50 MG TABLET PO SCH (21:44)
[2017-06-15] MEDS ORDERED: LIDOCAINE 5% (700 MG) TRANSDERMAL ADH..PATCH TP ONE (01:34)
[2017-06-15] MEDS: TRAMADOL HCL 50 MG TABLET PO PRN ×2 (01:42→08:03)
[2017-06-15] MEDS ORDERED: INSULIN LISPRO 100 UNIT/ML 3 ML VIAL SUBCUT SCH (08:00)
[2017-06-15] MEDS: HYDROCODONE/ACETAMINOPHEN 10-325 MG TABLET PO PRN ×2 (08:00→16:00)
[2017-06-15] MEDS: INSULIN LISPRO 100 UNIT/ML 3 ML VIAL SUBCUT SCH ×3 (08:03→16:03)
[2017-06-15] MEDS: CALCIUM ACETATE 667 MG CAPSULE PO SCH ×3 (08:15→17:16)
[2017-06-15] MEDS: GABAPENTIN 300 MG CAPSULE PO SCH (09:24)
[2017-06-15] MEDS: CITALOPRAM HYDROBROMIDE 20 MG TABLET PO SCH (09:25)
[2017-06-15] MEDS: LANSOPRAZOLE 30 MG TAB.RAP.DR PO SCH (09:26)
[2017-06-15] MEDS: ISOSORBIDE MONONITRATE 30 MG TAB.ER.24H PO SCH (09:26)
[2017-06-15] MEDS: HYDRALAZINE HCL 50 MG TABLET PO SCH ×2 (09:27→22:36)
[2017-06-15] MEDS: CARVEDILOL 12.5 MG TABLET PO SCH ×2 (09:27→22:37)
--- NOTE | 2017-06-15 10:52 | ER Document Report ---
Doctor's Note Notes: 06/15/17 10:50 Patient resting comfortably on stretcher, appears to be freshly showered, brighter affect, social work was contacted yesterday to assist with placement of patient due to his multiple medical problems, he does report feeling much better today, no longer suicidal, mental health team has cleared patient for discharge from their service, patient does report that he would like to go to [facility], he was previously referred to goes there but due to having a young child at home he declined being discharged to [facility] from the rehab center he was at, he reports that his prostate his leg that his ex-girlfriend's house, and she will not bring it to the hospital for him but he can have a friend pick it up if he were to be here in the hospital for more than 1-2 more days, no events overnight, vital signs have been stable, labs with episodes of hyperglycemia but otherwise stable, anticipate patient can be safely discharged once assisted living placement can be obtained or other housing arrangements based on social work recommendation
[2017-06-15] MEDS: FUROSEMIDE 40 MG TABLET PO SCH (17:35)
[2017-06-15] MEDS: ATORVASTATIN CALCIUM 10 MG TABLET PO SCH (22:37)
[2017-06-15] MEDS: INSULIN GLARGINE,HUM.REC.ANLOG 300 UNIT/3 ML INSULN.PEN SUBCUT SCH (22:38)
[2017-06-16] MEDS: HYDROCODONE/ACETAMINOPHEN 10-325 MG TABLET PO PRN (01:44)
[2017-06-16] MEDS: CALCIUM ACETATE 667 MG CAPSULE PO SCH ×3 (07:58→17:07)
[2017-06-16] MEDS: LANSOPRAZOLE 30 MG TAB.RAP.DR PO SCH (10:22)
[2017-06-16] MEDS: HYDRALAZINE HCL 50 MG TABLET PO SCH ×2 (10:23→22:21)
[2017-06-16] MEDS: CITALOPRAM HYDROBROMIDE 20 MG TABLET PO SCH (10:24)
[2017-06-16] MEDS: CARVEDILOL 12.5 MG TABLET PO SCH ×2 (10:24→22:20)
[2017-06-16] MEDS: FUROSEMIDE 40 MG TABLET PO SCH ×2 (10:26→18:05)
[2017-06-16] MEDS: ISOSORBIDE MONONITRATE 30 MG TAB.ER.24H PO SCH (10:26)
[2017-06-16] MEDS: GABAPENTIN 300 MG CAPSULE PO SCH (10:31)
[2017-06-16] MEDS: INSULIN LISPRO 100 UNIT/ML 3 ML VIAL SUBCUT SCH ×2 (11:15→16:23)
[2017-06-16] MEDS: INSULIN GLARGINE,HUM.REC.ANLOG 300 UNIT/3 ML INSULN.PEN SUBCUT SCH (22:18)
[2017-06-16] MEDS: ATORVASTATIN CALCIUM 10 MG TABLET PO SCH (22:20)
[2017-06-17] MEDS: INSULIN LISPRO 100 UNIT/ML 3 ML VIAL SUBCUT SCH ×3 (07:52→16:37)
[2017-06-17] MEDS: CALCIUM ACETATE 667 MG CAPSULE PO SCH ×3 (09:40→17:26)
[2017-06-17] MEDS: LANSOPRAZOLE 30 MG TAB.RAP.DR PO SCH (09:40)
[2017-06-17] MEDS: GABAPENTIN 300 MG CAPSULE PO SCH (09:42)
[2017-06-17] MEDS: HYDRALAZINE HCL 50 MG TABLET PO SCH ×2 (09:43→21:34)
[2017-06-17] MEDS: FUROSEMIDE 40 MG TABLET PO SCH ×2 (09:44→17:27)
[2017-06-17] MEDS: CITALOPRAM HYDROBROMIDE 20 MG TABLET PO SCH (09:44)
[2017-06-17] MEDS: CARVEDILOL 12.5 MG TABLET PO SCH ×2 (09:45→21:38)
[2017-06-17] MEDS: ISOSORBIDE MONONITRATE 30 MG TAB.ER.24H PO SCH (09:45)
[2017-06-17] MEDS: INSULIN LISPRO 100 UNIT/ML 3 ML VIAL SUBCUT PRN (16:37)
[2017-06-17] MEDS: ATORVASTATIN CALCIUM 10 MG TABLET PO SCH (21:33)
[2017-06-17] MEDS: HYDROCODONE/ACETAMINOPHEN 10-325 MG TABLET PO PRN (21:38)
[2017-06-17] MEDS: INSULIN GLARGINE,HUM.REC.ANLOG 300 UNIT/3 ML INSULN.PEN SUBCUT SCH (21:39)
[2017-06-18] MEDS: HYDROCODONE/ACETAMINOPHEN 10-325 MG TABLET PO PRN (02:40)
[2017-06-18] MEDS: CALCIUM ACETATE 667 MG CAPSULE PO SCH ×3 (10:04→17:56)
[2017-06-18] MEDS: GABAPENTIN 300 MG CAPSULE PO SCH (10:05)
[2017-06-18] MEDS: CITALOPRAM HYDROBROMIDE 20 MG TABLET PO SCH (10:05)
[2017-06-18] MEDS: FUROSEMIDE 40 MG TABLET PO SCH ×2 (10:06→18:01)
[2017-06-18] MEDS: ISOSORBIDE MONONITRATE 30 MG TAB.ER.24H PO SCH (10:06)
[2017-06-18] MEDS: HYDRALAZINE HCL 50 MG TABLET PO SCH ×2 (10:08→20:43)
[2017-06-18] MEDS: LANSOPRAZOLE 30 MG TAB.RAP.DR PO SCH (10:08)
[2017-06-18] MEDS: INSULIN LISPRO 100 UNIT/ML 3 ML VIAL SUBCUT SCH ×3 (10:08→16:00)
[2017-06-18] MEDS ORDERED: EPOETIN ALFA INJ 20000 UNIT/1 ML VIAL (RENAL) SUBCUT SCH (18:00)
[2017-06-18] MEDS: ATORVASTATIN CALCIUM 10 MG TABLET PO SCH (20:43)
[2017-06-18] MEDS: INSULIN GLARGINE,HUM.REC.ANLOG 300 UNIT/3 ML INSULN.PEN SUBCUT SCH (20:44)
[2017-06-18] MEDS: TRAMADOL HCL 50 MG TABLET PO PRN (23:05)
[2017-06-19] MEDS: PROMETHAZINE HCL 25 MG TABLET PO PRN (00:20)
[2017-06-19] MEDS: HYDROCODONE/ACETAMINOPHEN 10-325 MG TABLET PO PRN (00:23)
[2017-06-19] MEDS: INSULIN LISPRO 100 UNIT/ML 3 ML VIAL SUBCUT SCH ×3 (09:00→16:51)
[2017-06-19] MEDS: CALCIUM ACETATE 667 MG CAPSULE PO SCH ×3 (09:11→16:51)
[2017-06-19] MEDS: FUROSEMIDE 40 MG TABLET PO SCH ×2 (09:13→17:46)
[2017-06-19] MEDS: GABAPENTIN 300 MG CAPSULE PO SCH (09:14)
[2017-06-19] MEDS: CITALOPRAM HYDROBROMIDE 20 MG TABLET PO SCH (09:18)
[2017-06-19] MEDS: ISOSORBIDE MONONITRATE 30 MG TAB.ER.24H PO SCH (09:18)
[2017-06-19] MEDS: LANSOPRAZOLE 30 MG TAB.RAP.DR PO SCH (09:19)
[2017-06-19] MEDS: HYDRALAZINE HCL 50 MG TABLET PO SCH ×2 (09:19→22:23)
--- NOTE | 2017-06-19 09:57 | ER Document Report ---
Doctor's Note Notes: 06/19/17 09:55 Patient remains in the emergency room on placement holds, social science teacher is trying to assist patient with placement in rehab or assisted living facility, he was able to have a friend bring his prosthetic leg and, however he does not have a shoe for the left foot or a walker so that he can use the prosthetic leg to ambulate, he denies any needs at this point in time, no overnight issues, he will continue to remain in the emergency room until social work can find him an appropriate place to go, labs and vital signs are stable
[2017-06-19] MEDS: CARVEDILOL 12.5 MG TABLET PO SCH ×2 (12:03→22:23)
[2017-06-19] MEDS: INSULIN GLARGINE,HUM.REC.ANLOG 300 UNIT/3 ML INSULN.PEN SUBCUT SCH (22:18)
[2017-06-19] MEDS: ATORVASTATIN CALCIUM 10 MG TABLET PO SCH (22:22)
[2017-06-20] MEDS: INSULIN LISPRO 100 UNIT/ML 3 ML VIAL SUBCUT SCH ×3 (07:40→16:21)
[2017-06-20] MEDS: CALCIUM ACETATE 667 MG CAPSULE PO SCH ×3 (09:32→17:16)
[2017-06-20] MEDS: HYDRALAZINE HCL 50 MG TABLET PO SCH ×2 (09:33→22:45)
[2017-06-20] MEDS: CARVEDILOL 12.5 MG TABLET PO SCH ×2 (09:34→22:45)
[2017-06-20] MEDS: ISOSORBIDE MONONITRATE 30 MG TAB.ER.24H PO SCH (09:34)
[2017-06-20] MEDS: LANSOPRAZOLE 30 MG TAB.RAP.DR PO SCH (09:34)
[2017-06-20] MEDS: CITALOPRAM HYDROBROMIDE 20 MG TABLET PO SCH (09:35)
[2017-06-20] MEDS: GABAPENTIN 300 MG CAPSULE PO SCH (09:35)
[2017-06-20] MEDS: FUROSEMIDE 40 MG TABLET PO SCH ×2 (09:35→17:14)
--- NOTE | 2017-06-20 10:44 | ER Document Report ---
Doctor's Note Notes: 06/20/17 10:42 This is a 42-year-old man with a history of hypertension, diabetes, arthritis, peripheral vascular disease. He declined in an amputee. He initially presented with depression and suicidal ideations and unable to care for himself. He was evaluated by psychiatry and not deemed to be an immediate threat to himself. He however, is unable to care for himself and is social hold for long-term care. Currently, the patient has been without complaints. He is taking his medicines. He is currently medically stable for discharge.
[2017-06-20] MEDS: INSULIN GLARGINE,HUM.REC.ANLOG 300 UNIT/3 ML INSULN.PEN SUBCUT SCH (22:45)
[2017-06-20] MEDS: ATORVASTATIN CALCIUM 10 MG TABLET PO SCH (22:45)
[2017-06-21] MEDS: PROMETHAZINE HCL 25 MG TABLET PO PRN (07:43)
[2017-06-21] MEDS: INSULIN LISPRO 100 UNIT/ML 3 ML VIAL SUBCUT SCH ×2 (07:45→11:19)
[2017-06-21] MEDS ORDERED: ONDANSETRON 4 MG TAB.RAPDIS ONE (08:18)
[2017-06-21] MEDS: HYDRALAZINE HCL 50 MG TABLET PO SCH (09:34)
[2017-06-21] MEDS: GABAPENTIN 300 MG CAPSULE PO SCH (09:34)
[2017-06-21] MEDS: FUROSEMIDE 40 MG TABLET PO SCH (09:34)
[2017-06-21] MEDS: CITALOPRAM HYDROBROMIDE 20 MG TABLET PO SCH (09:35)
[2017-06-21] MEDS: LANSOPRAZOLE 30 MG TAB.RAP.DR PO SCH (09:35)
[2017-06-21] MEDS: CALCIUM ACETATE 667 MG CAPSULE PO SCH ×2 (09:35→11:22)
[2017-06-21] MEDS: CARVEDILOL 12.5 MG TABLET PO SCH (09:35)
[2017-06-21] MEDS: ISOSORBIDE MONONITRATE 30 MG TAB.ER.24H PO SCH (09:35)
--- NOTE | 2017-06-21 10:59 | ER Document Report ---
Doctor's Note Notes: 06/21/17 10:57 Rounds: Chart reviewed and patient interviewed. Patient is sleeping when I entered the room. Does not appear to be in any distress. Patient denies any new complaints as he awaits a place for him to live. Blood pressure is 184/65. Admission labs were unremarkable. Patient appears to be medically stable for transfer or discharge. Patient appears to be suffering from depression, to some extent due to his many medical and social problems. Patient appears to be medically stable for transfer or discharge. Nataliia Lorenz MD
[2017-06-21] MEDS: INSULIN LISPRO 100 UNIT/ML 3 ML VIAL SUBCUT PRN (11:20)
[2017-06-21] MEDS ORDERED: ACETAMINOPHEN 325 MG TABLET PO PRN (16:14)
[2017-06-21] MEDS ORDERED: DEXTROSE 50%-WATER SYRINGE 12.5 GM/25 ML DOSE IV PRN ×2 (16:15→16:16)
[2017-06-21] MEDS ORDERED: DEXTROSE 40% GEL 15 GM TUBE PO PRN ×2 (16:16→16:17)
[2017-06-21] MEDS ORDERED: GLUCAGON,HUMAN RECOMB 1 MG INJ IM PRN (16:18)
[2017-06-21] MEDS ORDERED: POLYETHYLENE GLYCOL 3350 POWDER 17 GM/1 PACKET PO PRN (16:19)
[2017-06-21] MEDS ORDERED: PROMETHAZINE HCL 25 MG TABLET PO PRN (16:19)
[2017-06-21] MEDS ORDERED: CALCIUM ACETATE 667 MG CAPSULE PO SCH (17:00)
[2017-06-21] MEDS ORDERED: INSULIN LISPRO 100 UNIT/ML 3 ML VIAL ONE (17:03)
[2017-06-21] MEDS ORDERED: FUROSEMIDE 40 MG TABLET PO SCH (18:00)
[2017-06-21] MEDS ORDERED: ATORVASTATIN CALCIUM 10 MG TABLET PO SCH (22:00)
[2017-06-21] MEDS ORDERED: HYDRALAZINE HCL 50 MG TABLET PO SCH (22:00)
[2017-06-21] MEDS ORDERED: CARVEDILOL 12.5 MG TABLET PO SCH (22:00)
[2017-06-21] MEDS: INSULIN GLARGINE,HUM.REC.ANLOG 300 UNIT/3 ML INSULN.PEN SUBCUT SCH (22:45)
[2017-06-22] MEDS: ACETAMINOPHEN 325 MG TABLET PO PRN (03:15)
[2017-06-22] MEDS ORDERED: TRAMADOL HCL 50 MG TABLET PO PRN (04:55)
[2017-06-22] MEDS ORDERED: INSULIN LISPRO 100 UNIT/ML 3 ML VIAL SUBCUT SCH (08:00)
[2017-06-22] MEDS ORDERED: INSULIN LISPRO 100 UNIT/ML 3 ML VIAL SUBCUT PRN (08:31)
[2017-06-22] MEDS ORDERED: DEXTROSE 50%-WATER SYRINGE 25 GM/50 ML DOSE IV PRN (08:31)
[2017-06-22] MEDS ORDERED: TRIAMCINOLONE ACETONIDE 0.1% CREAM 15 GM TOP PRN (08:31)
[2017-06-22] MEDS ORDERED: DEXTROSE 40% GEL 15 GM TUBE X 2 PO PRN (08:31)
[2017-06-22] MEDS ORDERED: DEXTROSE 50%-WATER SYRINGE 12.5 GM/25 ML DOSE IV PRN (08:32)
[2017-06-22] MEDS ORDERED: DEXTROSE 40% GEL 15 GM TUBE PO PRN (08:32)
[2017-06-22] MEDS ORDERED: GLUCAGON,HUMAN RECOMB 1 MG INJ IM PRN (08:32)
[2017-06-22] MEDS ORDERED: POLYETHYLENE GLYCOL 3350 POWDER 17 GM/1 PACKET PO PRN (08:33)
[2017-06-22] MEDS: INSULIN LISPRO 100 UNIT/ML 3 ML VIAL SUBCUT SCH ×3 (09:01→15:59)
[2017-06-22] MEDS: CALCIUM ACETATE 667 MG CAPSULE PO SCH ×3 (09:03→15:58)
[2017-06-22] MEDS: FUROSEMIDE 40 MG TABLET PO SCH ×2 (09:04→17:47)
[2017-06-22] MEDS: LANSOPRAZOLE 30 MG TAB.RAP.DR PO SCH (09:05)
[2017-06-22] MEDS: HYDRALAZINE HCL 50 MG TABLET PO SCH ×2 (09:05→23:00)
[2017-06-22] MEDS: GABAPENTIN 300 MG CAPSULE PO SCH (09:05)
[2017-06-22] MEDS: ISOSORBIDE MONONITRATE 30 MG TAB.ER.24H PO SCH (09:07)
[2017-06-22] MEDS: CITALOPRAM HYDROBROMIDE 20 MG TABLET PO SCH (09:07)
[2017-06-22] MEDS: CARVEDILOL 12.5 MG TABLET PO SCH ×2 (09:07→23:00)
[2017-06-22] MEDS ORDERED: LANSOPRAZOLE 30 MG TAB.RAP.DR PO SCH (10:00)
[2017-06-22] MEDS ORDERED: CITALOPRAM HYDROBROMIDE 20 MG TABLET PO SCH (10:00)
[2017-06-22] MEDS ORDERED: GABAPENTIN 300 MG CAPSULE PO SCH (10:00)
[2017-06-22] MEDS ORDERED: ISOSORBIDE MONONITRATE 30 MG TAB.ER.24H PO SCH (10:00)
[2017-06-22] MEDS: ATORVASTATIN CALCIUM 10 MG TABLET PO SCH (23:00)
[2017-06-22] MEDS: INSULIN GLARGINE,HUM.REC.ANLOG 300 UNIT/3 ML INSULN.PEN SUBCUT SCH (23:00)
[2017-06-23] MEDS: ACETAMINOPHEN 325 MG TABLET PO PRN (02:15)
[2017-06-23] MEDS: PROMETHAZINE HCL 25 MG TABLET PO PRN (02:15)
--- NOTE | 2017-06-23 09:13 | ER Document Report ---
Doctor's Note Notes: 06/23/17 09:36 As the rounding physician for our psychiatric patients, I have reviewed the chart, vitals, lab work. Patient has been examined and noted to be resting comfortably at this time. I am awaiting child welfare social worker in [place].
[2017-06-23] MEDS: LANSOPRAZOLE 30 MG TAB.RAP.DR PO SCH (10:39)
[2017-06-23] MEDS: GABAPENTIN 300 MG CAPSULE PO SCH (10:39)
[2017-06-23] MEDS: FUROSEMIDE 40 MG TABLET PO SCH ×2 (10:40→17:40)
[2017-06-23] MEDS: HYDRALAZINE HCL 50 MG TABLET PO SCH ×2 (10:40→22:03)
[2017-06-23] MEDS: ISOSORBIDE MONONITRATE 30 MG TAB.ER.24H PO SCH (10:40)
[2017-06-23] MEDS: CARVEDILOL 12.5 MG TABLET PO SCH ×2 (10:41→21:59)
[2017-06-23] MEDS: CITALOPRAM HYDROBROMIDE 20 MG TABLET PO SCH (10:41)
[2017-06-23] MEDS: INSULIN LISPRO 100 UNIT/ML 3 ML VIAL SUBCUT SCH ×2 (11:24→16:28)
[2017-06-23] MEDS: CALCIUM ACETATE 667 MG CAPSULE PO SCH ×2 (13:16→16:26)
[2017-06-23] MEDS: ATORVASTATIN CALCIUM 10 MG TABLET PO SCH (22:04)
[2017-06-23] MEDS ORDERED: INSULIN GLARGINE,HUM.REC.ANLOG 300 UNIT/3 ML INSULN.PEN SUBCUT ONE (23:36)
[2017-06-23] MEDS: INSULIN GLARGINE,HUM.REC.ANLOG 300 UNIT/3 ML INSULN.PEN SUBCUT SCH (23:51)
[2017-06-24] MEDS: PROMETHAZINE HCL 25 MG TABLET PO PRN ×2 (02:59→09:32)
[2017-06-24] MEDS: ACETAMINOPHEN 325 MG TABLET PO PRN (03:01)
[2017-06-24] MEDS ORDERED: ONDANSETRON 4 MG TAB.RAPDIS PO ONE (03:05)
[2017-06-24] MEDS: INSULIN LISPRO 100 UNIT/ML 3 ML VIAL SUBCUT SCH ×3 (08:06→19:02)
[2017-06-24] MEDS: CALCIUM ACETATE 667 MG CAPSULE PO SCH ×3 (08:07→19:01)
--- NOTE | 2017-06-24 10:29 | ER Document Report ---
Doctor's Note Notes: 06/24/17 10:28 Patient is sleeping comfortably in a chair. According to the nurse patient just received Phenergan so he is somewhat somnolent. Patient is easily aroused. He has no complaints or concerns at this time. He is awaiting placement.
[2017-06-24] MEDS: CARVEDILOL 12.5 MG TABLET PO SCH ×2 (11:01→22:25)
[2017-06-24] MEDS: CITALOPRAM HYDROBROMIDE 20 MG TABLET PO SCH (11:02)
[2017-06-24] MEDS: GABAPENTIN 300 MG CAPSULE PO SCH (11:03)
[2017-06-24] MEDS: FUROSEMIDE 40 MG TABLET PO SCH ×2 (11:03→19:00)
[2017-06-24] MEDS: HYDRALAZINE HCL 50 MG TABLET PO SCH ×2 (11:04→22:29)
[2017-06-24] MEDS: ISOSORBIDE MONONITRATE 30 MG TAB.ER.24H PO SCH (11:05)
[2017-06-24] MEDS: LANSOPRAZOLE 30 MG TAB.RAP.DR PO SCH (11:05)
[2017-06-24] MEDS: ATORVASTATIN CALCIUM 10 MG TABLET PO SCH (22:29)
[2017-06-24] MEDS: INSULIN GLARGINE,HUM.REC.ANLOG 300 UNIT/3 ML INSULN.PEN SUBCUT SCH (22:31)
[2017-06-25] MEDS: PROMETHAZINE HCL 25 MG TABLET PO PRN (01:41)
[2017-06-25] MEDS: CALCIUM ACETATE 667 MG CAPSULE PO SCH ×3 (08:46→16:39)
[2017-06-25] MEDS: INSULIN LISPRO 100 UNIT/ML 3 ML VIAL SUBCUT SCH ×3 (08:46→16:38)
[2017-06-25] MEDS: HYDRALAZINE HCL 50 MG TABLET PO SCH (09:31)
[2017-06-25] MEDS: CITALOPRAM HYDROBROMIDE 20 MG TABLET PO SCH (09:32)
[2017-06-25] MEDS: CARVEDILOL 12.5 MG TABLET PO SCH (09:32)
[2017-06-25] MEDS: LANSOPRAZOLE 30 MG TAB.RAP.DR PO SCH (09:33)
[2017-06-25] MEDS: FUROSEMIDE 40 MG TABLET PO SCH ×2 (09:33→18:43)
[2017-06-25] MEDS: ISOSORBIDE MONONITRATE 30 MG TAB.ER.24H PO SCH (09:33)
[2017-06-25] MEDS: GABAPENTIN 300 MG CAPSULE PO SCH (09:34)
[2017-06-25] MEDS: ACETAMINOPHEN 325 MG TABLET PO PRN (09:34)
--- NOTE | 2017-06-25 14:29 | ER Document Report ---
Doctor's Note Notes: 06/25/17 14:27 Patient is resting quietly at this time with no complaints. He is supposed to be seen by physical therapist today to assess his functional abilities to facilitate disposition. We will do a serum chemistry to assess renal function, as it was last checked when he came in 10 days ago.
--- NOTE | 2017-06-25 14:49 | ER Document Report ---
Doctor's Note Notes: 06/25/17 14:44 I am told that physical therapy did come and evaluate the patient, documentation suggests not much was done because the patient's prosthesis and walker were not here. The nurse for the unit told me that discharge planning services had been involved and wanted the patient to have prescriptions for all his medications, they would be faxed to [facility] and they plan to give the patient the medications and discharge him to a homeless long term or to his home tomorrow. I reviewed the list and there are some problems with it in that some of the insulin orders are duplicates, and there is also a weekly Procrit shot. There is been order for a 20 mg Celexa tablet given as a 10 mg daily tablet. Two of the same insulin prescriptions list 10 units subcut before meals, by history he has been receiving 6 units before meals while here this past week and his sugars have remained at a good level. He will receive prescriptions for a 15 day supply of the PhosLo, Coreg, Celexa, Lasix, Neurontin, Apresoline, Lantus, Humalog, Imdur, omeprazole, Pravachol, Phenergan, Ultram. He is to be sent home with an Aristocort tube that is in the ER for him to use. He will need to follow-up with Dr. Nazario Strong next week to get his Procrit shot. He should follow-up with his primary care provider in the next 7-10 days to reestablish care and get on a regular prescription schedule. 06/27/17 03:31 Reviewing the chart I find the patient is still here. 06/30/17 10:19 The patient remains here laying in bed being unwilling to attempt to rehab himself since I last saw him 5 days ago. At this point I do not believe that physical therapy has been here to get him up and walking with his prosthetic limb and his walker. I am told attempts continue to be made to find him long-term custodial care, attempts to get the hospitalist service to admit the patient upstairs were he may get his physical therapy, and attempts to get physical therapy actively involved with his rehab.
[2017-06-25 15:54] LABS: ANION GAP 10 (5-19); BLOOD UREA NITROGEN 55 mg/dL (7-20); CALCIUM 11.4 mg/dL (8.4-10.2); CARBON DIOXIDE 30 mmol/L (22-30); CHLORIDE 103 mmol/L (98-107); CREATININE RESULT 4.34 mg/dL (0.52-1.25); GLUCOSE 152 mg/dL (75-110); POTASSIUM 4.6 mmol/L (3.6-5.0); SODIUM 142.6 mmol/L (137-145)
[2017-06-25] MEDS ORDERED: EPOETIN ALFA INJ 20000 UNIT/1 ML VIAL (RENAL) SUBCUT SCH ×2 (18:00)
[2017-06-25] MEDS ORDERED: TRIAMCINOLONE ACETONIDE 0.1% CREAM 15 GM TOP PRN (18:39)
[2017-06-25] MEDS ORDERED: DEXTROSE 50%-WATER SYRINGE 12.5 GM/25 ML DOSE IV PRN (18:40)
[2017-06-25] MEDS ORDERED: DEXTROSE 50%-WATER SYRINGE 25 GM/50 ML DOSE IV PRN (18:40)
[2017-06-25] MEDS ORDERED: DEXTROSE 40% GEL 15 GM TUBE PO PRN (18:41)
[2017-06-25] MEDS ORDERED: DEXTROSE 40% GEL 15 GM TUBE X 2 PO PRN (18:41)
[2017-06-25] MEDS ORDERED: GLUCAGON,HUMAN RECOMB 1 MG INJ IM PRN (18:41)
[2017-06-25] MEDS ORDERED: POLYETHYLENE GLYCOL 3350 POWDER 17 GM/1 PACKET PO PRN (18:44)
[2017-06-25] MEDS ORDERED: TRAMADOL HCL 50 MG TABLET PO PRN (18:47)
[2017-06-26] MEDS: HYDRALAZINE HCL 50 MG TABLET PO SCH ×3 (00:20→22:38)
[2017-06-26] MEDS: CARVEDILOL 12.5 MG TABLET PO SCH ×3 (00:20→22:38)
[2017-06-26] MEDS: ATORVASTATIN CALCIUM 10 MG TABLET PO SCH ×2 (00:20→22:38)
[2017-06-26] MEDS: ACETAMINOPHEN 325 MG TABLET PO PRN ×2 (00:20→22:38)
[2017-06-26] MEDS: CALCIUM ACETATE 667 MG CAPSULE PO SCH ×3 (09:07→17:39)
[2017-06-26] MEDS: FUROSEMIDE 40 MG TABLET PO SCH ×2 (09:08→17:40)
[2017-06-26] MEDS: LANSOPRAZOLE 30 MG TAB.RAP.DR PO SCH (09:08)
[2017-06-26] MEDS: CITALOPRAM HYDROBROMIDE 20 MG TABLET PO SCH (09:08)
[2017-06-26] MEDS: ISOSORBIDE MONONITRATE 30 MG TAB.ER.24H PO SCH (09:09)
[2017-06-26] MEDS: GABAPENTIN 300 MG CAPSULE PO SCH (09:09)
[2017-06-26] MEDS: INSULIN LISPRO 100 UNIT/ML 3 ML VIAL SUBCUT SCH ×3 (09:42→17:40)
--- NOTE | 2017-06-26 10:02 | ER Document Report ---
Doctor's Note Notes: 06/26/17 10:00 Rounds: Chart reviewed and patient interviewed. Patient has no specific complaints. Has been in this facility for 12 days now. Still looking for placement. Blood pressure 158/69, currently on Coreg 12.5 mg q 12 H, Lasix 40 mg twice a day, hydralazine 50 mg every 12 hours. BUN and creatinine on admission were 55 and 4.3 respectively. Patient is medically stable for transfer or discharge. Nataliia Lorenz MD
[2017-06-26] MEDS: INSULIN LISPRO 100 UNIT/ML 3 ML VIAL SUBCUT PRN (23:55)
[2017-06-26] MEDS: INSULIN GLARGINE,HUM.REC.ANLOG 300 UNIT/3 ML INSULN.PEN SUBCUT SCH (23:55)
[2017-06-27] MEDS: INSULIN LISPRO 100 UNIT/ML 3 ML VIAL SUBCUT SCH ×3 (08:47→17:36)
[2017-06-27] MEDS: CALCIUM ACETATE 667 MG CAPSULE PO SCH ×3 (08:48→17:37)
--- NOTE | 2017-06-27 09:25 | ER Document Report ---
Doctor's Note Notes: 06/27/17 09:19 Patient evaluated no complaints at this time. Patient has had delivery of all of his home supplies needed for ambulation. Currently waiting for placement.
[2017-06-27] MEDS: CARVEDILOL 12.5 MG TABLET PO SCH ×2 (09:42→23:09)
[2017-06-27] MEDS: CITALOPRAM HYDROBROMIDE 20 MG TABLET PO SCH (09:47)
[2017-06-27] MEDS: FUROSEMIDE 40 MG TABLET PO SCH ×2 (09:48→17:37)
[2017-06-27] MEDS: GABAPENTIN 300 MG CAPSULE PO SCH (09:48)
[2017-06-27] MEDS: HYDRALAZINE HCL 50 MG TABLET PO SCH ×2 (09:49→23:11)
[2017-06-27] MEDS: LANSOPRAZOLE 30 MG TAB.RAP.DR PO SCH (09:50)
[2017-06-27] MEDS: ISOSORBIDE MONONITRATE 30 MG TAB.ER.24H PO SCH (09:50)
[2017-06-27] MEDS: ACETAMINOPHEN 325 MG TABLET PO PRN ×2 (09:55→15:32)
[2017-06-27] MEDS: ATORVASTATIN CALCIUM 10 MG TABLET PO SCH (23:12)
[2017-06-27] MEDS: INSULIN GLARGINE,HUM.REC.ANLOG 300 UNIT/3 ML INSULN.PEN SUBCUT SCH (23:13)
[2017-06-28] MEDS: INSULIN LISPRO 100 UNIT/ML 3 ML VIAL SUBCUT SCH ×3 (09:00→16:40)
[2017-06-28] MEDS: CALCIUM ACETATE 667 MG CAPSULE PO SCH ×3 (09:47→17:54)
[2017-06-28] MEDS: GABAPENTIN 300 MG CAPSULE PO SCH (09:49)
[2017-06-28] MEDS: CITALOPRAM HYDROBROMIDE 20 MG TABLET PO SCH (09:50)
[2017-06-28] MEDS: LANSOPRAZOLE 30 MG TAB.RAP.DR PO SCH (09:50)
[2017-06-28] MEDS: ISOSORBIDE MONONITRATE 30 MG TAB.ER.24H PO SCH (09:50)
[2017-06-28] MEDS: CARVEDILOL 12.5 MG TABLET PO SCH ×2 (09:50→21:27)
[2017-06-28] MEDS: FUROSEMIDE 40 MG TABLET PO SCH ×2 (09:51→17:55)
[2017-06-28] MEDS: HYDRALAZINE HCL 50 MG TABLET PO SCH ×2 (09:51→21:25)
--- NOTE | 2017-06-28 15:18 | ER Document Report ---
Doctor's Note Notes: 06/28/17 15:17 I have evaluated this pt. this am and he has no c/o a this time. He feels all of his needs are being met and his physical exam is normal. He is awaiting placement per mental health.
[2017-06-28] MEDS: ACETAMINOPHEN 325 MG TABLET PO PRN (20:16)
[2017-06-28] MEDS: ATORVASTATIN CALCIUM 10 MG TABLET PO SCH (21:27)
[2017-06-28] MEDS: PROMETHAZINE HCL 25 MG TABLET PO PRN (21:27)
[2017-06-28] MEDS: INSULIN GLARGINE,HUM.REC.ANLOG 300 UNIT/3 ML INSULN.PEN SUBCUT SCH (22:07)
[2017-06-29] MEDS ORDERED: ONDANSETRON 4 MG TAB.RAPDIS ONE ×2 (05:04→05:07)
[2017-06-29] MEDS ORDERED: PROMETHAZINE HCL INJ 50 MG/1 ML VIAL IM PRN (05:23)
[2017-06-29] MEDS ORDERED: PROMETHAZINE HCL INJ 50 MG/1 ML VIAL ONE (05:57)
[2017-06-29] MEDS: INSULIN LISPRO 100 UNIT/ML 3 ML VIAL SUBCUT SCH ×3 (07:54→16:00)
[2017-06-29] MEDS: CALCIUM ACETATE 667 MG CAPSULE PO SCH ×2 (08:00→12:00)
[2017-06-29] MEDS: HYDRALAZINE HCL 50 MG TABLET PO SCH ×2 (09:45→22:24)
[2017-06-29] MEDS: CITALOPRAM HYDROBROMIDE 20 MG TABLET PO SCH (09:46)
[2017-06-29] MEDS: GABAPENTIN 300 MG CAPSULE PO SCH (09:46)
[2017-06-29] MEDS: PROMETHAZINE HCL 25 MG TABLET PO PRN (09:47)
[2017-06-29] MEDS: CARVEDILOL 12.5 MG TABLET PO SCH ×2 (09:47→22:23)
[2017-06-29] MEDS: FUROSEMIDE 40 MG TABLET PO SCH ×2 (09:47→18:04)
[2017-06-29] MEDS: ISOSORBIDE MONONITRATE 30 MG TAB.ER.24H PO SCH (09:48)
[2017-06-29] MEDS: LANSOPRAZOLE 30 MG TAB.RAP.DR PO SCH (09:48)
--- NOTE | 2017-06-29 10:30 | ER Document Report ---
Doctor's Note Notes: 06/29/17 10:29 I have evaluated this pt. this am and he has no c/o at this time. He feels all of his needs are being met and his physical exam is normal. He is awaiting dispositon per mental health.
[2017-06-29] MEDS: ACETAMINOPHEN 325 MG TABLET PO PRN (22:23)
[2017-06-29] MEDS: ATORVASTATIN CALCIUM 10 MG TABLET PO SCH (22:24)
[2017-06-29] MEDS: INSULIN GLARGINE,HUM.REC.ANLOG 300 UNIT/3 ML INSULN.PEN SUBCUT SCH (22:25)
[2017-06-30] MEDS: CALCIUM ACETATE 667 MG CAPSULE PO SCH ×3 (07:10→20:02)
[2017-06-30] MEDS: INSULIN LISPRO 100 UNIT/ML 3 ML VIAL SUBCUT SCH ×3 (08:51→16:17)
[2017-06-30] MEDS: CARVEDILOL 12.5 MG TABLET PO SCH ×2 (11:12→21:41)
[2017-06-30] MEDS: LANSOPRAZOLE 30 MG TAB.RAP.DR PO SCH (11:12)
[2017-06-30] MEDS: GABAPENTIN 300 MG CAPSULE PO SCH (11:13)
[2017-06-30] MEDS: FUROSEMIDE 40 MG TABLET PO SCH ×2 (11:13→18:50)
[2017-06-30] MEDS: HYDRALAZINE HCL 50 MG TABLET PO SCH ×2 (11:13→21:42)
[2017-06-30] MEDS: CITALOPRAM HYDROBROMIDE 20 MG TABLET PO SCH (11:13)
[2017-06-30] MEDS: ISOSORBIDE MONONITRATE 30 MG TAB.ER.24H PO SCH (11:14)
[2017-06-30] MEDS ORDERED: ONDANSETRON 4 MG TAB.RAPDIS PO ONE (20:57)
[2017-06-30] MEDS ORDERED: DIPHENHYDRAMINE HCL 25 MG CAPSULE PO ONE (20:58)
[2017-06-30] MEDS ORDERED: PROCHLORPERAZINE MALEATE 10 MG TABLET PO ONE (20:58)
[2017-06-30] MEDS: ATORVASTATIN CALCIUM 10 MG TABLET PO SCH (21:42)
[2017-07-01] MEDS: CALCIUM ACETATE 667 MG CAPSULE PO SCH ×3 (08:19→17:18)
[2017-07-01] MEDS: INSULIN GLARGINE,HUM.REC.ANLOG 300 UNIT/3 ML INSULN.PEN SUBCUT SCH ×2 (08:43→23:35)
--- NOTE | 2017-07-01 09:08 | ER Document Report ---
Doctor's Note Notes: As the rounding physician for our psychiatric patients, I have reviewed the chart, vitals, lab work. Patient has been examined and noted to be stable, still awaiting placement, I have ordered lab work since he has not had any in 2 weeks. I am awaiting social service in [facility].
[2017-07-01 10:01] LABS: ABSOLUTE BASOPHILS # (AUTO) 0.1 10^3/uL (0.0-0.2); ABSOLUTE EOSINOPHILS # (AUTO) 0.2 10^3/uL (0.0-0.6); ABSOLUTE LYMPHOCYTES (AUTO) 2.3 10^3/uL (0.5-4.7); ABSOLUTE MONOCYTES (AUTO) 0.7 10^3/uL (0.1-1.4); ABSOLUTE NEUT (AUTO) 4.8 10^3/uL (1.7-8.2); BASOPHILS % (AUTO) 0.7 % (0-2); EOSINOPHILS % (AUTO) 2.8 % (0-6); HEMATOCRIT 41.2 % (37.9-51.0); HEMOGLOBIN 13.5 g/dL (13.5-17.0); HGB HCT DIFFERENCE -0.7; LYMPHOCYTES % (AUTO) 28.5 % (13-45); MEAN CORPUSCULAR HEMOGLOBIN 31.5 pg (27.0-33.4); MEAN CORPUSCULAR HGB CONC 32.9 g/dL (32.0-36.0); MONOCYTES % (AUTO) 8.4 % (3-13); RED CELL DISTRIBUTION WIDTH 14.2 % (11.5-14.0); SEGMENTED NEUTROPHILS % (AUTO) 59.6 % (42-78); WHITE BLOOD COUNT 8.1 10^3/uL (4.0-10.5)
[2017-07-01 10:02] LABS: MEAN CORPUSCULAR VOLUME 96 fl (80-97)
[2017-07-01 10:06] LABS: ALANINE AMINOTRANSFERASE 31 U/L (21-72); ALBUMIN 3.8 g/dL (3.5-5.0); ALKALINE PHOSPHATASE 75 U/L (38-126); ANION GAP 11 (5-19); ASPARTATE AMINO TRANSFERASE 17 U/L (17-59); BILIRUBIN,DIRECT 0.4 mg/dL (0.0-0.4); BILIRUBIN,TOTAL 0.4 mg/dL (0.2-1.3); BLOOD UREA NITROGEN 53 mg/dL (7-20); CARBON DIOXIDE 30 mmol/L (22-30); CHLORIDE 101 mmol/L (98-107); GLUCOSE 153 mg/dL (75-110); SODIUM 141.6 mmol/L (137-145); TOTAL PROTEIN 6.7 g/dL (6.3-8.2)
[2017-07-01 10:14] LABS: CALCIUM 12.5 mg/dL (8.4-10.2)
[2017-07-01] MEDS ORDERED: NORMAL SALINE 1000 ML 1,000 ML IV ONE ×2 (10:15→11:39)
[2017-07-01] MEDS: CARVEDILOL 12.5 MG TABLET PO SCH ×2 (11:13→23:30)
[2017-07-01] MEDS: HYDRALAZINE HCL 50 MG TABLET PO SCH ×2 (11:16→23:30)
[2017-07-01] MEDS: FUROSEMIDE 40 MG TABLET PO SCH (11:16)
[2017-07-01] MEDS: GABAPENTIN 300 MG CAPSULE PO SCH (11:16)
[2017-07-01] MEDS: ISOSORBIDE MONONITRATE 30 MG TAB.ER.24H PO SCH (11:17)
[2017-07-01] MEDS: LANSOPRAZOLE 30 MG TAB.RAP.DR PO SCH (11:17)
[2017-07-01] MEDS: INSULIN LISPRO 100 UNIT/ML 3 ML VIAL SUBCUT SCH ×3 (11:19→16:55)
[2017-07-01] MEDS: CITALOPRAM HYDROBROMIDE 20 MG TABLET PO SCH (11:21)
[2017-07-01 17:08] LABS: ALANINE AMINOTRANSFERASE 31 U/L (21-72); ALBUMIN 3.6 g/dL (3.5-5.0); ALKALINE PHOSPHATASE 71 U/L (38-126); ANION GAP 10 (5-19); ASPARTATE AMINO TRANSFERASE 15 U/L (17-59); BILIRUBIN,DIRECT 0.4 mg/dL (0.0-0.4); BILIRUBIN,TOTAL 0.4 mg/dL (0.2-1.3); BLOOD UREA NITROGEN 53 mg/dL (7-20); CARBON DIOXIDE 29 mmol/L (22-30); CHLORIDE 102 mmol/L (98-107); CREATININE RESULT 5.12 mg/dL (0.52-1.25); GLUCOSE 187 mg/dL (75-110); SODIUM 141.2 mmol/L (137-145); TOTAL PROTEIN 6.2 g/dL (6.3-8.2)
[2017-07-01 17:25] LABS: CALCIUM 12.1 mg/dL (8.4-10.2)
[2017-07-01] MEDS: ATORVASTATIN CALCIUM 10 MG TABLET PO SCH (23:30)
[2017-07-02] MEDS: INSULIN LISPRO 100 UNIT/ML 3 ML VIAL SUBCUT SCH ×3 (08:17→16:36)
[2017-07-02] MEDS: ISOSORBIDE MONONITRATE 30 MG TAB.ER.24H PO SCH (10:26)
[2017-07-02] MEDS: CARVEDILOL 12.5 MG TABLET PO SCH ×2 (10:27→21:37)
[2017-07-02] MEDS: CITALOPRAM HYDROBROMIDE 20 MG TABLET PO SCH (10:27)
[2017-07-02] MEDS: GABAPENTIN 300 MG CAPSULE PO SCH (10:28)
[2017-07-02] MEDS: HYDRALAZINE HCL 50 MG TABLET PO SCH ×2 (10:28→21:36)
[2017-07-02] MEDS: FUROSEMIDE 40 MG TABLET PO SCH ×2 (10:29→18:07)
--- NOTE | 2017-07-02 11:08 | ER Document Report ---
Doctor's Note Notes: 07/02/17 11:05 Patient resting comfortably on stretcher, no complaints at this time, Occupational Therapy is at bedside assisting patients, we continue to await for the proper living arrangement/placement for patient, chart was reviewed including labs and vital signs, he continues to have elevated calcium and intermittently elevated blood sugars, however otherwise patient has remained stable, no complaints or needs at this time
[2017-07-02] MEDS: CALCIUM ACETATE 667 MG CAPSULE PO SCH ×2 (13:56→18:12)
[2017-07-02] MEDS: INSULIN LISPRO 100 UNIT/ML 3 ML VIAL SUBCUT PRN (16:36)
[2017-07-02] MEDS: LANSOPRAZOLE 30 MG TAB.RAP.DR PO SCH (18:08)
[2017-07-02] MEDS: EPOETIN ALFA INJ 20000 UNIT/1 ML VIAL (RENAL) SUBCUT SCH (18:49)
[2017-07-02] MEDS: ATORVASTATIN CALCIUM 10 MG TABLET PO SCH (21:35)
[2017-07-02] MEDS: PROMETHAZINE HCL 25 MG TABLET PO PRN (21:37)
[2017-07-02] MEDS: INSULIN GLARGINE,HUM.REC.ANLOG 300 UNIT/3 ML INSULN.PEN SUBCUT SCH (21:39)
[2017-07-03] MEDS: ACETAMINOPHEN 325 MG TABLET PO PRN (00:42)
[2017-07-03] MEDS ORDERED: ACETAMINOPHEN 325 MG TABLET ONE (00:43)
[2017-07-03] MEDS: CALCIUM ACETATE 667 MG CAPSULE PO SCH ×3 (08:00→16:00)
[2017-07-03] MEDS: INSULIN LISPRO 100 UNIT/ML 3 ML VIAL SUBCUT SCH ×3 (08:26→17:07)
[2017-07-03] MEDS: GABAPENTIN 300 MG CAPSULE PO SCH (09:27)
[2017-07-03] MEDS: ISOSORBIDE MONONITRATE 30 MG TAB.ER.24H PO SCH (09:28)
[2017-07-03] MEDS: HYDRALAZINE HCL 50 MG TABLET PO SCH ×2 (09:28→22:44)
[2017-07-03] MEDS: FUROSEMIDE 40 MG TABLET PO SCH ×2 (09:28→17:06)
[2017-07-03] MEDS: CARVEDILOL 12.5 MG TABLET PO SCH ×2 (09:28→22:39)
[2017-07-03] MEDS: LANSOPRAZOLE 30 MG TAB.RAP.DR PO SCH (09:29)
[2017-07-03] MEDS: CITALOPRAM HYDROBROMIDE 20 MG TABLET PO SCH (09:29)
--- NOTE | 2017-07-03 15:27 | ER Document Report ---
Doctor's Note Notes: 07/03/17 15:26 Rounds: Chart review. Patient interviewed. No change from previously. Patient has now been in this hospital ED for almost 3 weeks. Awaiting placement. Nataliia Lorenz MD
[2017-07-03] MEDS: INSULIN GLARGINE,HUM.REC.ANLOG 300 UNIT/3 ML INSULN.PEN SUBCUT SCH (22:42)
[2017-07-03] MEDS: ATORVASTATIN CALCIUM 10 MG TABLET PO SCH (22:42)
[2017-07-04] MEDS: ACETAMINOPHEN 325 MG TABLET PO PRN (04:18)
[2017-07-04] MEDS: INSULIN LISPRO 100 UNIT/ML 3 ML VIAL SUBCUT SCH ×3 (09:20→16:12)
[2017-07-04] MEDS: ISOSORBIDE MONONITRATE 30 MG TAB.ER.24H PO SCH (09:29)
[2017-07-04] MEDS: CARVEDILOL 12.5 MG TABLET PO SCH ×2 (09:29→22:55)
[2017-07-04] MEDS: CITALOPRAM HYDROBROMIDE 20 MG TABLET PO SCH (09:29)
[2017-07-04] MEDS: GABAPENTIN 300 MG CAPSULE PO SCH (09:30)
[2017-07-04] MEDS: FUROSEMIDE 40 MG TABLET PO SCH ×2 (09:30→16:21)
[2017-07-04] MEDS: LANSOPRAZOLE 30 MG TAB.RAP.DR PO SCH (09:30)
[2017-07-04] MEDS: CALCIUM ACETATE 667 MG CAPSULE PO SCH ×3 (09:31→16:20)
[2017-07-04] MEDS: HYDRALAZINE HCL 50 MG TABLET PO SCH ×2 (09:32→22:55)
--- NOTE | 2017-07-04 10:19 | ER Document Report ---
Doctor's Note Notes: 07/04/17 10:18 I had a talk with the patient today. I last saw him on 06/30/2017. Today he is quite upbeat and smiling and happy. He tells me that since they started his therapy on Friday he is now walking a little over 60 feet and seems proud of this. He reports he had been doing over 100 feet at rehab when they were only looking to get him at least a 50 feet. He feels he is doing much better since they started getting him up walking and he feels that he will continue to improve. The improvement this week should facilitate placement for this gentleman.
[2017-07-04] MEDS ORDERED: ONDANSETRON 4 MG TAB.RAPDIS PO ONE (12:03)
[2017-07-04] MEDS: ATORVASTATIN CALCIUM 10 MG TABLET PO SCH (22:55)
[2017-07-04] MEDS: INSULIN LISPRO 100 UNIT/ML 3 ML VIAL SUBCUT PRN (22:55)
[2017-07-04] MEDS: INSULIN GLARGINE,HUM.REC.ANLOG 300 UNIT/3 ML INSULN.PEN SUBCUT SCH (22:55)
[2017-07-05] MEDS: CALCIUM ACETATE 667 MG CAPSULE PO SCH ×3 (07:35→16:11)
[2017-07-05] MEDS: INSULIN LISPRO 100 UNIT/ML 3 ML VIAL SUBCUT SCH ×3 (07:38→17:59)
[2017-07-05] MEDS: LANSOPRAZOLE 30 MG TAB.RAP.DR PO SCH (10:15)
[2017-07-05] MEDS: HYDRALAZINE HCL 50 MG TABLET PO SCH ×2 (10:16→22:45)
[2017-07-05] MEDS: FUROSEMIDE 40 MG TABLET PO SCH ×2 (10:17→17:59)
[2017-07-05] MEDS: ISOSORBIDE MONONITRATE 30 MG TAB.ER.24H PO SCH (10:17)
[2017-07-05] MEDS: CITALOPRAM HYDROBROMIDE 20 MG TABLET PO SCH (10:17)
[2017-07-05] MEDS: CARVEDILOL 12.5 MG TABLET PO SCH ×2 (10:17→22:46)
[2017-07-05] MEDS: GABAPENTIN 300 MG CAPSULE PO SCH (10:18)
[2017-07-05] MEDS: INSULIN LISPRO 100 UNIT/ML 3 ML VIAL SUBCUT PRN (17:59)
[2017-07-05] MEDS: ATORVASTATIN CALCIUM 10 MG TABLET PO SCH (22:44)
[2017-07-05] MEDS: INSULIN GLARGINE,HUM.REC.ANLOG 300 UNIT/3 ML INSULN.PEN SUBCUT SCH (22:46)
[2017-07-06] MEDS: INSULIN LISPRO 100 UNIT/ML 3 ML VIAL SUBCUT SCH ×3 (08:00→17:39)
--- NOTE | 2017-07-06 09:35 | ER Document Report ---
Doctor's Note Notes: 07/06/17 09:34 As the rounding physician for our social hold patients, I have reviewed the chart, vitals, lab work. Patient has been examined and noted to be resting comfortably it appears plan for placement has been ongoing now for quite a long period of time. Patient has no complaints lab work has been ordered. I am awaiting social service in [facility].
[2017-07-06 09:49] LABS: ABSOLUTE BASOPHILS # (AUTO) 0.1 10^3/uL (0.0-0.2); ABSOLUTE EOSINOPHILS # (AUTO) 0.3 10^3/uL (0.0-0.6); ABSOLUTE LYMPHOCYTES (AUTO) 1.8 10^3/uL (0.5-4.7); ABSOLUTE MONOCYTES (AUTO) 0.6 10^3/uL (0.1-1.4); ABSOLUTE NEUT (AUTO) 5.4 10^3/uL (1.7-8.2); BASOPHILS % (AUTO) 0.8 % (0-2); EOSINOPHILS % (AUTO) 3.6 % (0-6); HEMATOCRIT 42.7 % (37.9-51.0); HEMOGLOBIN 13.9 g/dL (13.5-17.0); MEAN CORPUSCULAR HEMOGLOBIN 31.4 pg (27.0-33.4); MEAN CORPUSCULAR HGB CONC 32.6 g/dL (32.0-36.0); MEAN CORPUSCULAR VOLUME 96 fl (80-97); MONOCYTES % (AUTO) 7.3 % (3-13); RED BLOOD COUNT 4.43 10^6/uL (4.35-5.55); RED CELL DISTRIBUTION WIDTH 14.2 % (11.5-14.0); SEGMENTED NEUTROPHILS % (AUTO) 66.3 % (42-78); WHITE BLOOD COUNT 8.2 10^3/uL (4.0-10.5)
[2017-07-06 10:01] LABS: ALANINE AMINOTRANSFERASE 24 U/L (21-72); ALBUMIN 3.5 g/dL (3.5-5.0); ALKALINE PHOSPHATASE 73 U/L (38-126); ANION GAP 10 (5-19); ASPARTATE AMINO TRANSFERASE 14 U/L (17-59); BILIRUBIN,DIRECT 0.4 mg/dL (0.0-0.4); BILIRUBIN,TOTAL 0.4 mg/dL (0.2-1.3); BLOOD UREA NITROGEN 50 mg/dL (7-20); CALCIUM 11.5 mg/dL (8.4-10.2); CARBON DIOXIDE 29 mmol/L (22-30); CHLORIDE 104 mmol/L (98-107); CREATININE RESULT 4.76 mg/dL (0.52-1.25); GLUCOSE 150 mg/dL (75-110); POTASSIUM 3.8 mmol/L (3.6-5.0); SODIUM 142.7 mmol/L (137-145); TOTAL PROTEIN 6.3 g/dL (6.3-8.2)
[2017-07-06] MEDS: LANSOPRAZOLE 30 MG TAB.RAP.DR PO SCH (11:14)
[2017-07-06] MEDS: CITALOPRAM HYDROBROMIDE 20 MG TABLET PO SCH (11:26)
[2017-07-06] MEDS: HYDRALAZINE HCL 50 MG TABLET PO SCH ×2 (11:28→23:09)
[2017-07-06] MEDS: FUROSEMIDE 40 MG TABLET PO SCH ×2 (11:30→18:37)
[2017-07-06] MEDS: CARVEDILOL 12.5 MG TABLET PO SCH ×2 (11:31→23:15)
[2017-07-06] MEDS: ISOSORBIDE MONONITRATE 30 MG TAB.ER.24H PO SCH (11:34)
[2017-07-06] MEDS: GABAPENTIN 300 MG CAPSULE PO SCH (11:35)
[2017-07-06] MEDS: INSULIN LISPRO 100 UNIT/ML 3 ML VIAL SUBCUT PRN ×2 (11:37→23:06)
[2017-07-06] MEDS ORDERED: DOCUSATE SODIUM 100 MG/10 ML UDC PO ONE (12:37)
[2017-07-06] MEDS: CALCIUM ACETATE 667 MG CAPSULE PO SCH ×2 (12:52→18:38)
[2017-07-06] MEDS ORDERED: POLYETHYLENE GLYCOL 3350 POWDER 17 GM/1 PACKET PO ONE (14:18)
[2017-07-06] MEDS: ATORVASTATIN CALCIUM 10 MG TABLET PO SCH (23:06)
[2017-07-06] MEDS: INSULIN GLARGINE,HUM.REC.ANLOG 300 UNIT/3 ML INSULN.PEN SUBCUT SCH (23:16)
[2017-07-07] MEDS: INSULIN LISPRO 100 UNIT/ML 3 ML VIAL SUBCUT PRN (07:00)
[2017-07-07] MEDS: INSULIN LISPRO 100 UNIT/ML 3 ML VIAL SUBCUT SCH ×3 (08:36→17:02)
[2017-07-07] MEDS: CALCIUM ACETATE 667 MG CAPSULE PO SCH ×3 (08:38→17:04)
[2017-07-07] MEDS: CITALOPRAM HYDROBROMIDE 20 MG TABLET PO SCH (10:39)
[2017-07-07] MEDS: GABAPENTIN 300 MG CAPSULE PO SCH (10:40)
[2017-07-07] MEDS: ISOSORBIDE MONONITRATE 30 MG TAB.ER.24H PO SCH (10:40)
[2017-07-07] MEDS: LANSOPRAZOLE 30 MG TAB.RAP.DR PO SCH (10:41)
[2017-07-07] MEDS: CARVEDILOL 12.5 MG TABLET PO SCH ×2 (10:43→23:25)
[2017-07-07] MEDS: FUROSEMIDE 40 MG TABLET PO SCH ×2 (10:44→18:59)
[2017-07-07] MEDS: HYDRALAZINE HCL 50 MG TABLET PO SCH ×2 (10:44→23:26)
[2017-07-07] MEDS: ATORVASTATIN CALCIUM 10 MG TABLET PO SCH (23:26)
[2017-07-07] MEDS: INSULIN GLARGINE,HUM.REC.ANLOG 300 UNIT/3 ML INSULN.PEN SUBCUT SCH (23:35)
[2017-07-08] MEDS: CALCIUM ACETATE 667 MG CAPSULE PO SCH ×2 (07:29→17:21)
[2017-07-08] MEDS: INSULIN LISPRO 100 UNIT/ML 3 ML VIAL SUBCUT SCH ×3 (09:47→16:38)
[2017-07-08] MEDS: CITALOPRAM HYDROBROMIDE 20 MG TABLET PO SCH (09:49)
[2017-07-08] MEDS: HYDRALAZINE HCL 50 MG TABLET PO SCH ×2 (09:50→21:57)
[2017-07-08] MEDS: GABAPENTIN 300 MG CAPSULE PO SCH (09:53)
[2017-07-08] MEDS: CARVEDILOL 12.5 MG TABLET PO SCH ×2 (09:53→21:59)
[2017-07-08] MEDS: LANSOPRAZOLE 30 MG TAB.RAP.DR PO SCH (09:54)
[2017-07-08] MEDS: ISOSORBIDE MONONITRATE 30 MG TAB.ER.24H PO SCH (09:54)
[2017-07-08] MEDS: FUROSEMIDE 40 MG TABLET PO SCH ×2 (09:57→19:26)
[2017-07-08] MEDS: INSULIN GLARGINE,HUM.REC.ANLOG 300 UNIT/3 ML INSULN.PEN SUBCUT SCH (21:59)
[2017-07-08] MEDS: INSULIN LISPRO 100 UNIT/ML 3 ML VIAL SUBCUT PRN (21:59)
[2017-07-08] MEDS: ATORVASTATIN CALCIUM 10 MG TABLET PO SCH (21:59)
[2017-07-09] MEDS: CALCIUM ACETATE 667 MG CAPSULE PO SCH ×3 (08:00→17:00)
[2017-07-09] MEDS: GABAPENTIN 300 MG CAPSULE PO SCH (09:32)
[2017-07-09] MEDS: FUROSEMIDE 40 MG TABLET PO SCH ×2 (09:32→17:26)
[2017-07-09] MEDS: CITALOPRAM HYDROBROMIDE 20 MG TABLET PO SCH (09:33)
[2017-07-09] MEDS: CARVEDILOL 12.5 MG TABLET PO SCH ×2 (09:33→23:21)
[2017-07-09] MEDS: HYDRALAZINE HCL 50 MG TABLET PO SCH ×2 (09:33→23:21)
[2017-07-09] MEDS: LANSOPRAZOLE 30 MG TAB.RAP.DR PO SCH (09:33)
[2017-07-09] MEDS: INSULIN LISPRO 100 UNIT/ML 3 ML VIAL SUBCUT SCH ×3 (09:34→17:27)
[2017-07-09] MEDS: ISOSORBIDE MONONITRATE 30 MG TAB.ER.24H PO SCH (09:34)
[2017-07-09] MEDS: EPOETIN ALFA INJ 20000 UNIT/1 ML VIAL (RENAL) SUBCUT SCH (18:16)
[2017-07-09] MEDS: ATORVASTATIN CALCIUM 10 MG TABLET PO SCH (23:20)
[2017-07-09] MEDS: INSULIN GLARGINE,HUM.REC.ANLOG 300 UNIT/3 ML INSULN.PEN SUBCUT SCH (23:23)
[2017-07-10 08:35] VITALS: BP 169/81
== END 2017-07-10 08:30 ==
LOC: ER 10:06
DX: F32.9 Major depressive disorder, single episode, unspecified (principal); N18.4 Chronic kidney disease, stage 4 (severe); H54.0 Blindness, both eyes; L03.115 Cellulitis of right lower limb; E66.01 Morbid (severe) obesity due to excess calories; Z89.511 Acquired absence of right leg below knee; Z79.4 Long term (current) use of insulin
CPT/HCPCS: 93005; 99285; 36415; 82962; 80307 ×4; 82310; 85025; 80048; 80053; 81001; 93010; 97530 ×9; 97110 ×5; 97116 ×4; 97535 ×3; 97167; J3490 ×147; S0119 ×2; J1815 ×24; Q4081 ×4; S0183; J2550; J7030